=== PATIENT | female | born 1960 | race Caucasian/White ===

== ENCOUNTER 2019-02-02 14:33 | Emergency (ER) | payer OTHER, SELFPAY ==
[2019-02-02 14:46] VITALS: BP 140/89; PULSE 92; RESP 16; TEMP 36.8; O2SAT 98
--- NOTE | 2019-02-02 15:06 | ED.GENADUL_ITS ---
Discharge Plan Disposition Patient Disposition: HOME Condition: Good Discharge Details Chief Complaint: Nk/Back Pain Clinical Impression: Low back pain Primary Care Provider: Florentino Taylor ED Provider: Syed Wadsworth Home Meds and New Rx's Prescriptions: New cyclobenzaprine 10 mg tablet 10 mg PO TID Qty: 14 RF: 0 acetaminophen [Mapap Extra Strength] 500 MG tablet 1,000 mg PO Q6H 5 Days Qty: 60 RF: 0 prednisone 50 MG tablet 50 mg PO DAILY Qty: 5 RF: 0 lidocaine [Lidoderm] 1 PATCH patch 1 patch Topical Q24H Qty: 4 RF: 0 Discharge Instructions Instructions: Low Back Strain (ED) Additional Instructions: Please take the medication as directed. Do not take the Flexeril while you are working, driving, operating heavy machinery, or using firearms or swimming or taking baths. If you notice any worsening of your symptoms, or any new symptoms such as vomiting, diarrhea, fever, chills, shortness of breath, chest pain, numbness, weakness, bowel or bladder incontinence, numbness and tingling in your groin, or fainting , please return immediately to the emergency department for reevaluation. Please follow up with your primary care provider as soon as possible for reassessment and reevaluation. As always, it was a pleasure participating in your medical care today. Referrals: Florentino Taylor [Primary Care Provider] - Medical Decision Making This is a very pleasant 58-year-old female with no significant past medical history who presents for back pain. It occurred 1 week ago when she was lifting a heavy box and then got jolted and scared. Pain is gradually been wo rsening over the past week, has been improved with Aleve and a heating pad, however pain was slightly worse today and not relieved by the medication and heating pad. She denies any concerning red flags of saddle anesthesia, bowel or bladder incontinence, numbness tingling or weakness. Signs and symptoms are clinically consistent with mild low back strain. At this time there is no significant evidence of severe neurovascular compromise, cord compression, and no red flags of fever chills or risk factors for abscess, additionally her current signs and symptoms are clinically inconsistent with these acute pathologies. Post void residual demonstrates no evidence of urinary retention. She has 40 a cc in her bladder. No current clinical indication for emergent imaging. With a normal neurologic exam, I feel that the patient be safely discharged home with close follow-up with her PCP. Will apply Lidoderm patch, start steroids, continue NSAIDs and add Tylenol, and recommend close follow-up. We discussed concerning red flags which to return. I have extensively reviewed the treatment plan and discharge instructions with the patient. I have addressed all patient concerns at this time. The patient was made aware of what symptoms to monitor for that would warrant a return to the emergency department. Discussed the plan with the patient, they demonstrate verbal understanding and agreement with our assessment and plan at this time. HPI General Date/Time Provider Initiated Documentation: 02/02/19 14:36 . 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 The patient states that 1 week ago she was lifting a heavy box of dog food for a package delivery when someone came out and caused her to drop back quickly, she felt some mild soreness in her back, since then the soreness is gradually increased. She has been taking Aleve at home which is notably improving her symptoms until today. Patient states that the pain has been located in the lower back and sacral region, however today it is radiating slightly down the buttock left. She describes it as an achy-like sensation, worse with moving, and sitting upright or bending over. Improved by the Aleve but nothing else. She has been using a heating pad which is also improved her symptoms. She denies any associated numbness tingling or weakness of her lower extremities. She denies any bowel or bladder incontinence, she denies any urinary retention. She denies any saddle anesthesia. She denies any nausea, vomiting, diarrhea, abdominal pain, chest pain, shortness of breath or rash. She has no other complaints. She denies any IV or illicit drug use, surgeries, pertinent family history Related Data Home Medications Medication Instructions Recorded Confirmed acetaminophen [Mapap Extra 1,000 mg PO Q6H 5 Days #60 tab 02/02/19 Strength] cyclobenzaprine 10 mg PO TID #14 tab 02/02/19 lidocaine [Lidoderm] 1 patch TOPICAL Q24H #4 patch 02/02/19 prednisone 50 mg PO DAILY #5 tab 02/02/19 Previous Rx's Medication Instructions Recorded acetaminophen [Mapap Extra 1,000 mg PO Q6H 5 Days #60 tab 02/02/19 Strength] cyclobenzaprine 10 mg PO TID #14 tab 02/02/19 lidocaine [Lidoderm] 1 patch TOPICAL Q24H #4 patch 02/02/19 prednisone 50 mg PO DAILY #5 tab 02/02/19 General Stated Complaint: Nk/Back Pain MELISSA: 4 Review of Systems Review of Systems All systems reviewed & are unremarkable except as noted in HPI and below Exam Narrative Exam Narrative: 1.Const: Well-nourished, Well-developed, appearing stated age 2.Eyes: PERRL, no conjunctival injection, and symmetrical lids. 3.ENT: Atraumatic external nose and ears. Moist MM. Neck: Symmetric, trachea midline, No thyromegaly. 4.CVS: +S1/S2, No murmurs or gallops. Peripheral pulses 2+ and equal in all extremities. Brisk capillary refill in all extremities. 5.RESP: Unlabored respiratory effort. Clear to auscultation bilaterally. No wheezes rales or rhonchi 6.GI: Soft, Nontender/Nondistended, No hepatosplenomegaly. No guarding or r ebound. 7.MSK: Normocephalic/Atraumatic, Extremities w/o deformity or ttp. Mild tenderness on palpation over the left buttock. No evidence of pelvic instability. No cyanosis or clubbing, Normal movement of all extremities no midline tenderness to palpation over the CTLS spine. Normal ROM in flexion, extension, side bend, and rotation. Patient has +5 out of 5 strength in the lower extremities in dorsiflexion and plantarflexion, knee flexion and extension, hip flexion and extension. There is +2 over 2 dorsalis pedis pulses bilaterally. There is normal sensation to the skin with light touch at the foot, knee, and hip. Normal saddle sensation. Good sensation over the deep sural nerve area bilaterally. Rectal exam demonstrates notable rectal tone, as well as excellent perirectal sensation. Reflexes are +2 over 4 in the patellar reflex bilaterally. +5 out of 5 strength in the medial, ulnar, radial nerve distribution bilaterally in the hands as well as intact light touch sensation to these dermatomes on the hands 8.Skin: Warm, Dry. No rashes or lesions. 9.Neuro: shake splitter II-XII grossly intact. Sensation grossly intact, no focal neurologic deficits. 10.Psych: (AAO) x3. Appropriate mood and affect Course Vital Signs Temperature 36.8 C 02/02/19 14:46 Pulse 92 H 02/02/19 14:46 Respiratory Rate 16 02/02/19 14:46 Blood Pressure 140/89 02/02/19 14:46 Pulse Oximetry 98 02/02/19 14:46 Temperature 36.8 C 02/02/19 14:46 Temperature Source Temporal Artery Scan 02/02/19 14:46 Pulse 92 H 02/02/19 14:46 Respiratory Rate 16 02/02/19 14:46 Blood Pressure 140/89 02/02/19 14:46 Pulse Oximetry 98 02/02/19 14:46 Oxygen Delivery Method Room Air 02/02/19 14:46 Oxygen Flow Rate 0 02/02/19 14:46
--- NOTE | 2019-02-02 15:20 | NUR.NOTE ---
Med list not complete; patient is unable to identify names and doses of her medicationsNursing Note:
[2019-02-02] MEDS: Lidocaine 5% Patch 1 PATCH TP (15:21)
== END 2019-02-02 15:31 | disposition home or self-care (01) ==
PROVIDERS: Emergency Provider Student in an Organized Health Care Education/Training Program; PCP Specialist/Technologist Athletic Trainer
DX: M54.5 Low back pain (principal)
CPT/HCPCS: 99283

== ENCOUNTER 2019-02-05 06:50 | Emergency (ER) | payer OTHER, BC, SELFPAY ==
[2019-02-05] VITALS (10 sets, daily range): BP systolic 119–154; BP diastolic 61–81; PULSE 64–90; RESP 18; TEMP 36.7; O2SAT 90–100
--- NOTE | 2019-02-05 08:12 | W.ED.GENAD ---
Discharge Plan Disposition Condition: Improving Discharge Details Chief Complaint: Nk/Back Pain Clinical Impression: Left sided sciatica Primary Care Provider: Florentino Taylor ED Provider: Juliano Gonzalez Home Meds and New Rx's Prescriptions: New hydrocodone-acetaminophen 5-325 mg tablet 1 tab PO Q6H PRN (Reason: pain) Qty: 6 RF: 0 prednisone 10 mg tablet 10 mg PO DAILY Qty: 30 RF: 0 Continued acetaminophen [Mapap Extra Strength] 500 MG tablet 1,000 mg PO Q6H 5 Days Qty: 60 RF: 0 prednisone 50 MG tablet 50 mg PO DAILY Qty: 5 RF: 0 lidocaine [Lidoderm] 1 PATCH patch 1 patch Topical Q24H Qty: 4 RF: 0 naproxen sodium [Aleve] 220 mg Capsule 440 mg PO BID-TID PRNRF: 0 Discontinued cyclobenzaprine 10 mg tablet 10 mg PO TID Qty: 14 RF: 0 Discharge Instructions Instructions: Sciatica (ED) Additional Instructions: Follow-up with physical therapy. Off work for 1 week. Continue ibuprofen/Motrin, with food for pain. Stop the Flexeril. Finish your current prescription of prednisone with 2 additional days and then taper as I have prescribed. Return if you develop motor weakness with walking, change to urine pattern, numbness of the lower extremity or any other concern Stand Alone Forms: Physical Therapy Referral, Work Release Medical Decision Making 58-year-old female who was startled while carrying a 50 pound package on January 25. Since that time she is at ongoing low back pain and spasm is been refractive to steroid, lidocaine patch, cyclobenzaprine that was prescribed 3 days ago at ED visit. No saddle anesthesia or motor weakness. She is afebrile and otherwise well up. Consistent with acute sciatica with paraspinous muscular spasm. No motor or sensory deficits. IV placed, screening labs and urinalysis obtained, patient given fluid bolus, parenteral steroids, analgesia. She improved and was able to rest. We will increase the length of steroid burst and add a taper, refer the patient to physical therapy, she will stop Flexeril, and I will add small number of narcotic for acute severe pain if needed. She understands return precautions to the ER Lab Data Lab results reviewed: Yes I reviewed the patient's lab results. Laboratory Results - last 24 hr 02/05/19 02/05/19 02/05/19 08:15 08:30 08:30 WBC 16.57 H RBC 5.01 Hgb 14.6 Hct 43.0 MCV 85.8 MCH 29.1 MCHC 34.0 RDW 13.9 Plt Count 348 MPV 9.9 Immature Gran % 1.3 Neutrophils % 73.3 Lymphocytes % 18.5 Monocytes % 5.3 Eosinophils % 1.4 Basophils % 0.2 Absolute Neutrophils 12.15 H Absolute Lymphocytes 3.07 Absolute Monocytes 0.88 H Absolute Eosinophils 0.23 Absolute Basophils 0.03 Sodium 138 Potassium 3.2 L Chloride 96 L Carbon Dioxide 32.8 H Anion Gap 9.2 BUN 14 Creatinine 1.07 H Estimated GFR/1.73 m2 52.49 Glucose 115 H Calcium 9.4 Magnesium 2.1 Total Bilirubin 0.3 AST 20 ALT 37 Alkaline Phosphatase 99 Total Protein 8.1 Albumin 4.3 Urine Color Yellow Urine Clarity Clear Urine pH 7.0 Ur Specific [place] 1.015 Urine Protein Negative Urine Ketones Negative Urine Blood Negative Urine Nitrite Negative Urine Bilirubin Negative Urine Urobilinogen 0.2 Ur Leukocyte Esterase Negative Urine Glucose Negative HPI General Mode of arrival: ambulatory. Date/Time Provider Initiated Documentation: 02/05/19 07:54. Limitations to Documentation: no limitations. Information obtained by: patient. History of Present Illness 58 year old F presents to the emergency department with the chief complaint of Back pain since January 25 while carrying 50 pound package, described as moderate, Quality is described as dull, and is localized to the back and left. Patient distal. Patient started experiencing this day(s) and it has been constant. Movement improves symptom(s), Rest worsens symptoms . Patient notes no other symptoms.. Patient did receive the following treatments prior to arrival, other (Lidocaine, Flexeril, steroid) Related Data Home Medications Medication Instructions Recorded Confirmed acetaminophen [Mapap Extra 1,000 mg PO Q6H 5 Days #60 tab 02/02/19 02/05/19 Strength] lidocaine [Lidoderm] 1 patch TOPICAL Q24H #4 patch 02/02/19 02/05/19 prednisone 50 mg PO DAILY #5 tab 02/02/19 02/05/19 hydrocodone-acetaminophen 1 tab PO Q6H PRN #6 tab 02/05/19 naproxen sodium [Aleve] 440 mg PO BID-TID PRN 02/05/19 02/05/19 prednisone 10 mg PO DAILY #30 tab 02/05/19 Previous Rx's Medication Instructions Recorded acetaminophen [Mapap Extra 1,000 mg PO Q6H 5 Days #60 tab 02/02/19 Strength] lidocaine [Lidoderm] 1 patch TOPICAL Q24H #4 patch 02/02/19 prednisone 50 mg PO DAILY #5 tab 02/02/19 hydrocodone-acetaminophen 1 tab PO Q6H PRN #6 tab 02/05/19 prednisone 10 mg PO DAILY #30 tab 02/05/19 Allergies Allergy/AdvReac Type Severity Reaction Status Date / Time No Known Allergies Allergy Unverified 02/05/19 06:59 General Stated Complaint: Nk/Back Pain MELISSA: 4 Review of Systems Review of Systems No saddle anesthesia, no change to urine, no change to gait. Denies motor weakness. No back pain 8 systems reviewed and otherwise negative [facility] Social History Smoking/Tobacco Use Status: Current every day Tobacco Type: cigarettes Tobacco: How many years used: 30 Alcohol Intake: current Alcohol Intake frequency: 0-2 drinks per day Substance use type: does not use Do you feel safe at home: Yes Do you feel safe in your relationship?: Yes Exam Narrative Exam Narrative: GEN: awake, alert, oriented 3. Pleasant, well groomed, interactive. HEAD: Normocephalic, atraumatic ENT: Mucous membranes moist, oropharynx unremarkable, External ear exam unremarkable EYES: PERRL, EOMI NECK: Full ROM, no HARPREET, no menigismus CHEST/RESP: Nontender, clear to auscultation bilateral, no wheeze/rhonchi/rales CARDIOVASCULAR: RRR, no murmur, rub marisa. 2+ Rad pulse bilateral Back: Left paraspinous muscular spasm from midthoracic down to SI. Left sciatic notch tender to palpation. No saddle anesthesia. Great toe proprioception intact. Motor 5 out of 5 bilaterally including plantar and dorsiflexion of the leg. Gait antalgic but with good heel strike. ABDOMEN: Soft, nontender, no mass. +Bowel sounds EXT: Full ROM, no edema, no rash Neuro: Grossly normal neurologic exam, conversant, interactive. Psych: Speech fluent, thoughts congruent, affect normal Course Vital Signs Temperature 36.7 C 02/05/19 06:55 Pulse 90 02/05/19 06:55 Respiratory Rate 18 02/05/19 06:55 Blood Pressure 154/81 H 02/05/19 06:55 Pulse Oximetry 99 02/05/19 06:55 Temperature 36.7 C 02/05/19 06:55 Temperature Source Temporal Artery Scan 02/05/19 06:55 Pulse 90 02/05/19 06:55 Respiratory Rate 18 02/05/19 06:55 Respiratory Effort Non-Labored 02/05/19 06:58 Blood Pressure 154/81 H 02/05/19 06:55 Pulse Oximetry 99 02/05/19 06:55 Oxygen Delivery Method Room Air 02/05/19 06:55 Oxygen Flow Rate 0 02/05/19 06:55 Pain Level 10 02/05/19 07:01
[2019-02-05 08:22] LABS: Bilirubin Negative (Negative); Blood Negative (Negative); Clarity Clear; Glucose Negative (Negative); Ketones Negative (Negative); Leukocyte Esterase Negative (Negative); Nitrite Negative (Negative); Specific Gravity 1.015 (1.005-1.025); Urobilinogen 0.2 EU/dL (Up TO 0.2)
[2019-02-05] MEDS: Normal Saline 1,000 ML 1000 ML IV (08:27)
[2019-02-05] MEDS: Dexamethasone 10 MG/ML VIAL IVP (08:28)
[2019-02-05] MEDS: Ketorolac 30 MG/ML VIAL IVP (08:28)
[2019-02-05] MEDS: HYDROmorphone 2 MG/ML VIAL 1 MG IVP (08:29)
[2019-02-05] MEDS: MAGNESIUM SULFATE 1 GM/100 ML BAG IVPB (08:33)
[2019-02-05 08:43] LABS: Abs Immature Grans 0.22 k/cumm (0.0-0.09); Absolute Basophil Count 0.03 k/cumm (0.0-0.2); Absolute Monocyte Count 0.88 k/cumm (0.11-0.7); Basophils % 0.2; Eosinophils % 1.4; HGB 14.6 g/dL (12.0-15.5); Immature Grans % 1.3; Lymphocytes % 18.5; Mean Corpuscular Hemoglobin 29.1 pg (27.0-33.0); Mean Corpuscular Volume 85.8 fL (80-95); Mean Platelet Volume 9.9 fL (8.0-11.0); Monocytes % 5.3; Neutrophils % 73.3; Platelet Count 348 x1000/uL (130-400); RBC 5.01 m/cumm (4.00-5.20); RBC Distribution Width 13.9 % (11.7-14.6); White Blood Cell Count 16.57 k/cumm (4.4-10.8)
[2019-02-05 08:52] LABS: Absolute Eosinophil Count 0.23 k/cumm (0.0-0.7); Absolute Lymphocyte Count 3.07 k/cumm (1.2-3.4); Absolute Neutrophil Count 12.15 k/cumm (1.2-6.7)
[2019-02-05] MEDS: diazePAM 10 MG/2 ML SYR 2.5 MG IVP (08:56)
[2019-02-05 09:02] LABS: ALT 37 U/L (12-78); AST 20 U/L (15-37); Albumin 4.3 g/dL (3.4-5.0); Alkaline Phosphatase 99 U/L (46-116); Anion Gap 9.2 mmol/L (3-11); BUN 14 mg/dL (7-18); Bilirubin, Total 0.3 mg/dL (0.2-1.0); CO2 32.8 mmol/L (21.0-32.0); CREATININE 1.07 mg/dL (0.55-1.02); Calcium 9.4 mg/dL (8.5-10.1); Chloride 96 mmol/L (98-107); Estimated GFR 52.49 (mL/min/1.73m2); Glucose 115 mg/dL (70-100); Magnesium 2.1 mg/dL (1.8-2.4); Potassium 3.2 mmol/L (3.5-5.1); Sodium 138 mmol/L (136-145); Total Protein 8.1 g/dL (6.4-8.2)
== END 2019-02-05 09:47 | disposition home or self-care (01) ==
PROVIDERS: Emergency Provider Emergency Medicine; PCP Specialist/Technologist Athletic Trainer
DX: M54.42 Lumbago with sciatica, left side (principal)
CPT/HCPCS: 36415; 80053; 96361; 96365; 96375; 99284; 81003; 83735; 85025; J1100; J1885; J3360; J3475

== ENCOUNTER 2019-02-10 00:41 | Outpatient (CLI) | payer OTHER, BC, SELFPAY ==
--- NOTE | 2019-02-10 10:12 | DI.RAD_ITS ---
SYMPTOMS/DIAGNOSIS: LOW BACK PAIN, M54.5 LUMBOSACRAL SPINE: Five views were obtained. There is narrowing of the intervertebral disc spaces at L 4 - 5 and L 5 - S 1. Otherwise the intervertebral disc spaces are well maintained. Moderate hypertrophic spurring of the vertebral endplates and facet joints noted in the lower lumbar region. No evidence of spondylolysis or spondylolisthesis. No fracture identified. CONCLUSION: Degenerative changes of the lower lumbar spine.
== END 2019-02-10 01:01 ==
PROVIDERS: PCP Specialist/Technologist Athletic Trainer; Visit Provider Specialist/Technologist Athletic Trainer
DX: M54.5 Low back pain (principal); M51.37 Other intervertebral disc degeneration, lumbosacral region
CPT/HCPCS: 72110

== ENCOUNTER 2019-02-21 00:25 | Outpatient (CLI) | payer OTHER, SELFPAY ==
--- NOTE | 2019-02-21 10:25 | DI.MRI_ITS ---
SYMPTOMS/DIAGNOSIS: LOW BACK PAIN, M54.5, SEVERE BACK PAIN AFTER LIFTING HEAVY BOX, RADICULAR SYMPTOMS DOWN LEFT LEG X 2 WEEKS, NOT IMPROVED MRI OF THE LUMBAR SPINE: Comparison is made with plain films dated January,. T1, T2 and STIR sagittal, T1 coronal and T1 and T2 axial sequences were performed. The T12-L1 and L1-2 discs are unremarkable. At L3-4, there is mild concentric disc bulging and small endplate osteophytes. There are mild facet degenerative changes, which combine with the disc bulging to produce mild central canal stenosis of the AP dimension of the canal. There is no significant neural foraminal narrowing. At L3-4, there is mild loss of disc height and moderate concentric disc bulging and small endplate osteophytes. There are mild facet degenerative changes. There is mild central canal stenosis and mild bilateral neural foraminal narrowing. At L4-5, there is narrowing of the disc greater on the right side with osteophytes more prominent on the right. There is also a focal disc protrusion, which is slightly eccentric toward the right. There are moderate facet joint degenerative changes, as well as ligamentous hypertrophy, which combine with the disc protrusion to cause moderate degree of central canal stenosis. There is mild right neural foraminal narrowing. At L5-S1, there is mild broad-based disc bulging. There is a superimposed disc protrusion,which is eccentric toward the left. There are facet degenerative changes combining with the disc protrusion to produce moderate central canal stenosis. There is left- sided nerve root impingement. There is no right neural foraminal narrowing. The conus medullaris appears intact. IMPRESSION: Right paracentral disc protrusion at L4-5. Left paracentral disc protrusion at L5-S1. Central canal stenosis is seen from L3-4 through L5-S1 secondary to a combination of degenerative changes and disc protrusions.
== END 2019-02-21 00:45 ==
PROVIDERS: PCP Specialist/Technologist Athletic Trainer; Visit Provider Specialist/Technologist Athletic Trainer
DX: M54.5 Low back pain (principal); M54.17 Radiculopathy, lumbosacral region; M51.17 Intervertebral disc disorders with radiculopathy, lumbosacral region; M48.061 Spinal stenosis, lumbar region without neurogenic claudication
CPT/HCPCS: 72148

== ENCOUNTER 2019-03-04 00:51 | Emergency (ER) | payer OTHER, SELFPAY ==
[2019-03-04 00:53] VITALS: BP 159/88; PULSE 94; RESP 20; TEMP 36.5; O2SAT 97
--- NOTE | 2019-03-04 01:06 | ED.GENADUL_ITS ---
Discharge Plan Disposition Patient Disposition: HOME Condition: Good Discharge Details Chief Complaint: Orthopedic Clinical Impression: Left sided sciatica Primary Care Provider: Florentino Taylor ED Provider: Rian Garvey Meds and New Rx's Prescriptions: No Action cyclobenzaprine 10 mg Tablet 10 mg PO TID PRNRF: 0 Discharge Instructions Instructions: Sciatica (ED) Additional Instructions: You may take 1 oxycodone when you return home tonight. You may take the second tomorrow if needed during the day. Contact primary care during the day for follow-up and further pain management. Return to ED if you develop any new neurologic changes such as decreased sensation, decreased strength, bladder or bowel dysfunction, new or worsening back pain. Referrals: Florentino Taylor [Primary Care Provider] - Medical Decision Making Patient with left sciatic pain which she has had previously. Complains of aching tingling in the leg but has normal sensation throughout. Has 5 out of 5 strength throughout. She does not actually have back pain. She has known disease from MRI done within the last couple of weeks. She has no bladder or bowel dysfunction. She has primary care as well as physical therapy. She simply unable to sleep tonight. She had try calling primary care during the day but was unable to reach him. She is hoping to speak to him later today. She drove herself here so unable to give her anything strong here. I have agreed to give her oxycodone #2 5 mg tablets to go home with. May take 1 when she is home to try to get some rest. Given a second 1 to use tomorrow if needed. Contact primary care for further pain management. Return to ED for any new neurologic symptoms. Medical Records Medical records reviewed: Yes I reviewed the patient's medical records. HPI General Mode of arrival: ambulatory . Date/Time Provider Initiated Documentation: 03/04/19 01:06 . Limitations to Documentation: no limitations . Information obtained by: patient and old records reviewed . HPI Narrative: Patient presents to ED with complaint of left sciatica pain. She has had back problems for a while. She injured herself a month ago and has not been able to go back to work since. She had an MRI at the end of January. She has central canal stenosis as well as protruding discs. On Thursday she had physical therapy. Since then she has had increasing left lower extremity pain from the buttock down. Left leg feels tingly although sensation is intact. She has no actual back pain. She has no weakness. She has no bladder or bowel dysfunction. She attempted to contact primary care during the day but he was not available. She has been unable to sleep tonight. She is taking Flexeril, Tylenol, Advil. Related Data Home Medications Medication Instructions Recorded Confirmed cyclobenzaprine 10 mg PO TID PRN 03/04/19 03/04/19 Allergies Allergy/AdvReac Type Severity Reaction Status Date / Time No Known Allergies Allergy Unverified 02/05/19 06:59 General Stated Complaint: Orthopedic MELISSA: 4 Review of Systems Review of Systems As documented in HPI otherwise negative as below. Const: no fever, chills, weakness Resp: smoker's cough; no SOB, pleuritic pain CV: no CP, diaphoresis, edema, syncope GI: no abdominal pain, nausea, vomiting, diarrhea Neuro: no headache, numbness, focal weakness, confusion PFSH Social History Smoking/Tobacco Use Status: Current every day Tobacco Type: cigarettes Tobacco: How many years used: 30 Alcohol Intake: current Alcohol Intake frequency: 0-2 drinks per day Substance use type: does not use Do you feel safe at home: Yes Do you feel safe in your relationship?: Yes Exam Narrative Exam Narrative: Vitals: Hypertensive likely due to discomfort. Saturations okay, mid 90's in smokier. Const: WDWN female in NAD sitting in chair. HEENT: NC/AT. Normal facial exam. Back: Normal ROM of back. Nontender. Neuro: A+O x 3. CN II-XII grossly in tact. Sensory in tact, no change in sensation in either leg. Strength is 5/5 BLE. Ext: No C/C/E. No deformity or tenderness. Tender left buttock/sciatic area. Course Vital Signs Temperature 97.7 F 03/04/19 00:53 Pulse 94 H 03/04/19 00:53 Respiratory Rate 20 03/04/19 00:53 Blood Pressure 159/88 H 03/04/19 00:53 Pulse Oximetry 97 03/04/19 00:53 Temperature 97.7 F 03/04/19 00:53 Temperature Source Tympanic 03/04/19 00:53 Pulse 94 H 03/04/19 00:53 Respiratory Rate 20 03/04/19 00:53 Respiratory Effort 03/04/19 00:53 Blood Pressure 159/88 H 03/04/19 00:53 Pulse Oximetry 97 03/04/19 00:53 Oxygen Delivery Method Room Air 03/04/19 00:53 Oxygen Flow Rate 0 03/04/19 00:53 Pain Level 10 03/04/19 00:53
[2019-03-04] MEDS: oxyCODONE 5 MG TAB PO (01:28)
[2019-03-04 01:36] VITALS: BP 159/88; PULSE 94; RESP 20; O2SAT 97
== END 2019-03-04 01:36 | disposition home or self-care (01) ==
LOC: ER 01:36
PROVIDERS: Emergency Provider Emergency Medicine; PCP Specialist/Technologist Athletic Trainer
DX: M54.32 Sciatica, left side (principal)
CPT/HCPCS: 99283

== ENCOUNTER 2019-04-22 16:22 | Outpatient (REF) | payer BC, SELFPAY ==
[2019-04-22 21:45] LABS: Anion Gap 11.2 mmol/L (3-11); BUN 10 mg/dL (7-18); CO2 30.8 mmol/L (21.0-32.0); CREATININE 0.95 mg/dL (0.55-1.02); Chloride 103 mmol/L (98-107); Glucose 142 mg/dL (70-100); Potassium 3.5 mmol/L (3.5-5.1); Sodium 145 mmol/L (136-145)
== END 2019-04-22 16:42 ==
LOC: NCHCN 16:22
PROVIDERS: PCP Specialist/Technologist Athletic Trainer; Visit Provider Nurse Practitioner Family
DX: Z01.818 Encounter for other preprocedural examination (principal)
CPT/HCPCS: 80048

== ENCOUNTER 2019-06-08 12:29 | Outpatient (CLI) | payer BC, SELFPAY ==
--- NOTE | 2019-06-08 13:51 | DI.US_ITS ---
SYMPTOMS/DIAGNOSIS: PAIN ACHILLES TENDON AREA, LUMBAR SURGERY 1 MONTH AGO, ? DVT RIGHT LOWER EXTREMITY ULTRASOUND: The femoral and popliteal veins and visualized calf veins are freely compressible. No thrombus is visible. There is no localized hematoma or madden's cyst. IMPRESSION: Negative right lower extremity ultrasound. No evidence of DVT.
== END 2019-06-08 12:49 ==
PROVIDERS: PCP Specialist/Technologist Athletic Trainer; Visit Provider Neurological Surgery
DX: M79.661 Pain in right lower leg (principal); M79.671 Pain in right foot; Z98.890 Other specified postprocedural states
CPT/HCPCS: 93971

== ENCOUNTER 2019-09-28 01:30 | Outpatient (CLI) | payer OTHER, SELFPAY ==
--- NOTE | 2019-09-28 14:48 | DI.MRI_ITS ---
EXAM: MR LUMBAR SPINE WO CLINICAL HISTORY: RT LUMBAR RADICULOPATHY M54.16, EVALUATE FOR POSSIBLE RT L4-5 STENOSIS/DISC HERNIA TION, S/P L5-S1 MSD 05/2019. TECHNIQUE: Multiplanar multisequence MRI was performed. COMPARISON: MR lumbar spine wo from 02/21/2019 FINDINGS: MR examination of the lumbosacral spine was performed according to the usual protocol. Current exami nation is compared with prior examination of February 21. There has apparently been an interval left laminectomy at L5-S1, please correlate with history. Findings of left-sided disc herniation at L5-S1 noted on the prior examination are much less prominent on the current examination, there is mild lef t-sided neural foraminal narrowing at L5-S1. At L4-5, there is been no gross interval change in appearance of the large central disc herniation. Slight right sided neural foraminal narrowing noted. No gross interval change from prior examination . Mild eccentric disc bulging most prominent to the left noted at L3-4 and L2-3, no change from prior e xamination. IMPRESSION: 1. Marked interval decrease in prominence of L5-S1 disc herniation since the previous examination, th e patient has apparently had a discectomy. If clinically appropriate, additional evaluation with cont rast enhanced MR may be considered for more precise evaluation of the appearance of the disc and pote ntial fibrous scar tissue at this level. 2. No gross interval change in appearance of predominantly central, slightly right eccentric disc her niation at L4-5 in comparison with the previous examination.
== END 2019-09-28 01:50 ==
PROVIDERS: PCP Specialist/Technologist Athletic Trainer; Visit Provider Neurological Surgery
DX: M54.16 Radiculopathy, lumbar region (principal); M51.17 Intervertebral disc disorders with radiculopathy, lumbosacral region
CPT/HCPCS: 72148

== ENCOUNTER 2020-02-03 13:44 | Emergency (ER) | payer BC, SELFPAY ==
--- NOTE | 2020-02-03 13:46 | W.ED.GENAD ---
Discharge Plan Disposition Patient Disposition: HOME Condition: Stable Discharge Details Chief Complaint: GenMedical Clinical Impression: Leg wound, right, Wound infection Primary Care Provider: Lesley Henriquez V ED Provider: Jennifer Canela Home Meds and New Rx's Prescriptions: New cephalexin [Keflex] 500 mg capsule 500 mg PO QID 7 Days Qty: 28 RF: 0 mupirocin 2 % ointment 1 applic TP BID Qty: 15 RF: 0 Continued amlodipine 10 mg tablet 10 mg PO DAILY RF: 0 multivitamin capsule 1 cap PO DAILY RF: 0 atorvastatin 40 mg tablet 40 mg PO DAILY RF: 0 losartan-hydrochlorothiazide 100-25 mg tablet 1 tab PO DAILY RF: 0 bupropion HCl 150 mg tablet extended release 24 hr 150 mg PO QAM RF: 0 aspirin 81 mg tablet,delayed release (DR/EC) 81 mg PO DAILY RF: 0 Discharge Instructions Instructions: Wound Infection (ED) Additional Instructions: Use the topical antibiotic ointment as directed. Take the oral antibiotics until finished. Keep wound clean and dry. Cover wound with bandage if risk of contamination. Otherwise you can keep the wound open to air if resting at home to allow edges to dry and heal. Follow-up with your primary care doctor on your scheduled appointment this month. Return to the emergency department if you develop any worsening or new concerning symptoms such as fever, increased pain, redness or swelling. Discharge Data Discharge Physician: Jennifer Canela Medical Decision Making 59yo F presents with acute on chronic R leg wound for the past few months, worse over the past few days. Denies fever. Pt appears nontoxic. There is an open wound on R posterior lower leg with a surrounding mild cellulitis. Wound is local. History and presentation not c/w dvt. Will cover with topical and oral antibiotics. A nonadherent dressing was placed. Wound precautions discussed. Pt was advised to f/u with scheduled appt with pcp this month and to return here if worse. Medical Records Medical records reviewed: Yes I reviewed the patient's medical records. HPI General Mode of arrival: ambulatory. Date/Time Provider Initiated Documentation: 02/03/20 13:46. Limitations to Documentation: no limitations. Information obtained by: patient. HPI Narrative: Pt is a 59yo F who presents to the ED w/ a c/o R leg wound for the past few months, getting progressively worse. Pt states the wound first started from wearing boots that rubbed against her leg. She states she had stopped wearing these boots and the wound improved and then she wore the boots again recently and the wound became worse. She denies fever. Pt has been covering the wound with triple antibiotic without relief. Related Data Home Medications Medication Instructions Recorded Confirmed amlodipine 10 mg tablet 10 mg PO DAILY 04/04/19 02/03/20 aspirin 81 mg tablet,delayed 81 mg PO DAILY 04/04/19 02/03/20 release atorvastatin 40 mg tablet 40 mg PO DAILY 04/04/19 02/03/20 bupropion HCl 150 mg 24 hr tablet, 150 mg PO QAM 04/04/19 02/03/20 extended release losartan 100 1 tab PO DAILY 04/04/19 02/03/20 mg-hydrochlorothiazide 25 mg tablet multivitamin 1 cap PO DAILY 04/04/19 02/03/20 cephalexin [Keflex] 500 mg PO QID 7 Days #28 cap 02/03/20 mupirocin 1 applic TP BID #15 gm 02/03/20 Previous Rx's Medication Instructions Recorded cephalexin [Keflex] 500 mg PO QID 7 Days #28 cap 02/03/20 mupirocin 1 applic TP BID #15 gm 02/03/20 Allergies Allergy/AdvReac Type Severity Reaction Status Date / Time No Known Allergies Allergy Unverified 02/03/20 13:56 General MELISSA: 4 Review of Systems All systems reviewed & are unremarkable except as noted in HPI and below Constitutional Constitutional: Reports as per HPI, Denies chills and Denies fever(s) Eyes Eyes: Denies blurry vision ENT Ears, Nose, Mouth, and Throat: Denies dizziness, Denies sore throat and Denies throat swelling Cardiovascular Cardiovascular: Denies chest pain and Denies dyspnea Respiratory Respiratory: Denies cough and Denies dyspnea Gastrointestinal Gastrointestinal: Denies abdominal pain, Denies diarrhea and Denies vomiting Genitourinary Genitourinary: Denies hematuria and Denies dysuria Musculoskeletal Musculoskeletal: Denies back pain and Denies numbness Integumentary/Breasts Skin/Breast: Reports lesions and Denies rash Neurologic Neurologic: Denies dizziness, Denies localized weakness and Denies numbness Allergic/Immunologic Allergic/Immunologic: Denies throat swelling [facility] Medical History (Updated 02/03/20 @ 14:14 by Jennifer Canela DO) Back pain with radiculopathy (Acute) Bilateral calf pain (Acute) COPD, mild (Acute) Depression (Chronic) Hemorrhoids (Acute) Hyperlipidemia (Acute) Hypertension (Chronic) Hypokalemia (Acute) Low back pain (Acute) Pap smear vag w ASC-US (Acute) Seasonal affective disorder (Acute) Situational anxiety (Acute) Tobacco use disorder (Acute) Social History Smoking/Tobacco Use Status: Current every day Tobacco Type: cigarettes Tobacco: How many years used: 30 Alcohol Intake: current Alcohol Intake frequency: 0-2 drinks per day Substance use type: does not use Do you feel safe at home: Yes Do you feel safe in your relationship?: Yes Exam Const General: cooperative, healthy appearing and no acute distress HENMT Head: normal to inspection Mouth: oral mucosae normal Eyes General: appearance normal, both eyes and all related structures Neck Neck: normal visual inspection Resp Effort & Inspection: normal respiratory effort and able to speak in complete sentences Cardio Rate: regular rate Skin General skin exam: no rashes or lesions noted Neuro General: patient alert, patient awake and patient oriented x3 Motor: muscle tone normal throughout Extrem Upper/lower leg/hip images: 1. 4cm x 5cm wound with an approximately 2x2cm open yellow crusted area in center and with a 2cm surrounding area of erythema and induration located on posterior lower leg. There is no fluctuance, drainage, bleeding or red streaking. Psych Appearance: grossly normal Affect: normal affect
[2020-02-03 13:50] VITALS: BP 161/91; PULSE 91; RESP 16; TEMP 36.8; O2SAT 97
[2020-02-03 14:01] VITALS: RESP 16
== END 2020-02-03 14:40 | disposition home or self-care (01) ==
PROVIDERS: Emergency Provider Physician Assistant; PCP Family Medicine
DX: L03.115 Cellulitis of right lower limb (principal); S81.801A Unspecified open wound, right lower leg, initial encounter; X58.XXXA Exposure to other specified factors, initial encounter; I10 Essential (primary) hypertension; J44.9 Chronic obstructive pulmonary disease, unspecified; F17.210 Nicotine dependence, cigarettes, uncomplicated
CPT/HCPCS: 99283

== ENCOUNTER 2020-04-08 09:25 | Emergency (ER) | payer BC, SELFPAY ==
[2020-04-08 09:31] VITALS: BP 167/85; PULSE 87; RESP 20; TEMP 36.7; O2SAT 97
--- NOTE | 2020-04-08 09:33 | W.ED.GENAD ---
Discharge Plan Disposition Patient Disposition: HOME Condition: Good Discharge Details Chief Complaint: RashLesion Clinical Impression: Chronic wound of extremity Primary Care Provider: eLsley Henriquez V ED Provider: Bel Giraldo Home Meds and New Rx's Prescriptions: Continued amlodipine 10 mg tablet 10 mg PO DAILY RF: 0 multivitamin capsule 1 cap PO DAILY RF: 0 atorvastatin 40 mg tablet 40 mg PO DAILY RF: 0 losartan-hydrochlorothiazide 100-25 mg tablet 1 tab PO DAILY RF: 0 bupropion HCl 150 mg tablet extended release 24 hr 150 mg PO QAM RF: 0 aspirin 81 mg tablet,delayed release (DR/EC) 81 mg PO DAILY RF: 0 Discharge Instructions Instructions: Chronic Wound Care (ED) Additional Instructions: Keep wound clean and covered. Every 48 hours, please remove the dressing, apply the ointment provided after washing the area and reapply new dressing. Please call general surgery tomorrow to schedule appointment for chronic wound care. If develop fever/chills, increased pain, purulent discharge or the new/worsening symptom please seek care urgently once again. Referrals: Lesley Henriquez MD [Primary Care Provider] - Joslyn Tay MD [ [facility] STAFF PHYSICIAN] - Medical Decision Making Patient is a pleasant 5-year-old female presenting today with chief complaint of chronic ulcerative wound on the posterior aspect of the right lower extremity. She is presenting today due to pruritus and tingling around the wound. She states that she is having difficulty sleeping secondary to the sensations. She reports the wound initially began back in December when she sustained a blister from wearing a boot placing pressure on this area. 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 She is been seen twice, once in the emergency department once by her primary care, both times she was treated with antibiotics. When she was seen here last, there was concern for cellulitic component. She denies any fevers or chills. Does endorse some discomfort primarily is endorsing itching at this time. States that she is been giving this to air she was recommended to try and dry this out. On exam, patient has a chronic 5 cm wound. No purulent discharge. No swelling, fluctuance. She does have small around the area of erythema and excoriation this is not warm or tender. This appears more consistent with chronic wound without evidence of acute infection. Spoke with wound care nurse who advised moistening the area. She advised Duoderm gel with mepelex cover. Patient was he was applied for the patient. She was given enough to continue care of the wound this week. Advised to change his dressing every 48 hours and shower when she does take it off to wash the area. She will call general surgery tomorrow to schedule follow-up appointment for clinical management. She is given return precautions, in particular symptoms of infection. All of her questions and concerns were addressed and she is in agreement this plan. HPI General Mode of arrival: ambulatory. Date/Time Provider Initiated Documentation: 04/08/20 09:33. Limitations to Documentation: no limitations. Information obtained by: patient and RN notes reviewed. History of Present Illness 59 year old F presents to the emergency department with the chief complaint of right posterior calf chronic wound with itching, described as moderate, with intensity rated at 5. Quality is described as constant and other (itching), and is localized to the right and lower extremity. Patient reports no radiation. Patient started experiencing this month(s) (4) and it has been constant. No relieving factors improve symptom(s), No exacerbating factors reported . Patient notes no other symptoms.. Patient did receive the following treatments prior to arrival, other (2 courses of antibiotics) Related Data Home Medications Medication Instructions Recorded Confirmed amlodipine 10 mg tablet 10 mg PO DAILY 04/04/19 04/08/20 aspirin 81 mg tablet,delayed 81 mg PO DAILY 04/04/19 04/08/20 release atorvastatin 40 mg tablet 40 mg PO DAILY 04/04/19 04/08/20 bupropion HCl 150 mg 24 hr tablet, 150 mg PO QAM 04/04/19 04/08/20 extended release losartan 100 1 tab PO DAILY 04/04/19 04/08/20 mg-hydrochlorothiazide 25 mg tablet multivitamin 1 cap PO DAILY 04/04/19 04/08/20 Allergies Allergy/AdvReac Type Severity Reaction Status Date / Time No Known Allergies Allergy Unverified 04/08/20 09:35 General MELISSA: 3 Review of Systems Constitutional Constitutional: Reports as per HPI, Denies chills, Denies fever(s), Denies headache(s) and Denies weakness ENT Ears, Nose, Mouth, and Throat: Denies headache(s) Cardiovascular Cardiovascular: Reports as per HPI Respiratory Respiratory: Reports as per HPI and Denies cough Musculoskeletal Musculoskeletal: Reports as per HPI and Denies tingling Integumentary/Breasts Skin/Breast: Reports as per HPI and Reports wounds Neurologic Neurologic: Reports as per HPI, Denies headache(s), Denies tingling, Denies paresthesias and Denies weakness [facility] Medical History Back pain with radiculopathy (Acute) Bilateral calf pain (Acute) COPD, mild (Acute) Depression (Chronic) Hemorrhoids (Acute) Hyperlipidemia (Acute) Hypertension (Chronic) Hypokalemia (Acute) Low back pain (Acute) Pap smear vag w ASC-US (Acute) Seasonal affective disorder (Acute) Situational anxiety (Acute) Tobacco use disorder (Acute) Social History Smoking/Tobacco Use Status: Current every day Tobacco Type: cigarettes Tobacco: How many years used: 30 Alcohol Intake: current Alcohol Intake frequency: 0-2 drinks per day Drug use: Never Substance use type: does not use Do you feel safe at home: Yes Do you feel safe in your relationship?: Yes Exam Const General: cooperative, healthy appearing, comfortable, no acute distress, well developed and well groomed Nutritional Appearance: average body habitus and well nourished Orientation: alert and awake Resp Effort & Inspection: normal respiratory effort, able to speak in complete sentences and no respiratory distress Cardio Rate: regular rate Rhythm: regular rhythm Skin Wounds: wounds noted (as drawn below) Full body images: 1. Patient has a 5 cm in diameter ulcerated lesion that is dried and scabbed over. She has a 1 cm in circumference surrounding erythematous and excoriated border. Is not hot, no fluctuance, no swelling. No discharge noted. 2+ distal pulses. Good range of motion. Does not appear to have tenderness or muscle involvement. Neuro General: patient alert and patient awake Cognition: normal cognition Speech: speech normal Gait: normal gait Motor: muscle tone normal throughout Sensory Exam: no sensory deficits noted Extrem Right lower extremity: abnormal to inspection (As above) Psych Appearance: grossly normal and well kempt Mental Status: mental status grossly normal Speech and Movement: speech and movement normal
== END 2020-04-08 10:13 | disposition home or self-care (01) ==
LOC: ER 10:11
PROVIDERS: Emergency Provider Physician Assistant; PCP Family Medicine
DX: L97.218 Non-pressure chronic ulcer of right calf with other specified severity (principal); R20.2 Paresthesia of skin; L29.8 Other pruritus; J44.9 Chronic obstructive pulmonary disease, unspecified; F17.210 Nicotine dependence, cigarettes, uncomplicated
CPT/HCPCS: 99283

== ENCOUNTER 2020-07-03 14:30 | Emergency (ER) | payer BC, SELFPAY ==
[2020-07-03 14:37] VITALS: BP 178/81; PULSE 98; RESP 16; TEMP 36.4; O2SAT 98
--- NOTE | 2020-07-03 15:07 | W.ED.GENAD ---
Discharge Plan Disposition Patient Disposition: HOME Condition: Stable Discharge Details Chief Complaint: Cellulitis Clinical Impression: Open leg wound, Cellulitis of leg, right Primary Care Provider: Lesley Henriquez V ED Provider: Kaila Hand Home Meds and New Rx's Prescriptions: New cephalexin 500 mg capsule 500 mg PO BID 10 Days Qty: 20 RF: 0 No Action amlodipine 10 mg tablet 10 mg PO DAILY RF: 0 multivitamin capsule 1 cap PO DAILY RF: 0 atorvastatin 40 mg tablet 40 mg PO DAILY RF: 0 losartan-hydrochlorothiazide 100-25 mg tablet 1 tab PO DAILY RF: 0 bupropion HCl 150 mg tablet extended release 24 hr 150 mg PO QAM RF: 0 aspirin 81 mg tablet,delayed release (DR/EC) 81 mg PO DAILY RF: 0 hydrochlorothiazide 25 mg tablet 25 mg PO DAILY RF: 0 diphenhydramine HCl [Benadryl] 25 mg capsule 25 mg PO QHS RF: 0 Discharge Instructions Instructions: Cellulitis (ED) Additional Instructions: Home care of wound per instructions by wound care nurse. Keep Mepilex dressing in place until seen in 3 days. Be seen in the next 3 days either here in the ER, by primary care provider, or general surgery. Take antibiotics as directed. Do not scratch or touch wound. Keep covered while at work. I strongly suggest clipping your fingernails if you are unable to not scratch wound. Return to the ED sooner for any fever, spreading redness or any concerns. There is a wound clinic at [facility] as noted below. You may also try to call them for follow-up appointment. [facility] Address: [address] [place] [address] Hours: Open 24 hours Emergency room: Open 24 hours ? More hours I would suggest a dry dressing. Do not place any more antibiotic cream on the wound. Referrals: Lesley Henriquez MD [Primary Care Provider] - Discharge Data Discharge Date/Time-TO BE ENTERED AT DEPARTURE: 07/03/20 16:40 Medical Decision Making 60-year-old female presents to the ER complaining of worsening redness surrounding a chronic wound to the back of her right lower extremity. Patient states that she has had a wound which began as a blister since December. She states that the last couple days she noticed increased pruritic erythema surrounding central wound. There is a large 3 x 4 cm area of excoriation centrally with surrounding erythema. Patient denies any fever chills, myalgias or any other complaints at this time. She states that she has been cleaning wound with running soap and water, leaving it uncovered and applying [id number] antibiotic ointment at home. She has not been on antibiotics in the last few months. She was seen in the wound clinic /general surgery until May 10 when she missed an appointment and has not gone back. She is a every day smoker. Has a past medical history of hyperlipidemia, hypertension, anxiety. 1514: Wound care nurseArian called and is at bedside for patient evaluation. Erythema was marked measured by nurse staff industrial. He is performing wound care. 1540: Wound care nurse is placing Ancif (Bleach based wound treatment gel) to wound he recommends cover with Mepilex dressing and follow-up in 3 days. Will instruct patient to follow-up with PCP, general surgery, or return to the ED in 3 days time. Patient placed on cephalexin 500 mg twice a day x10 days and instructed on home care, dressing management and wound care. Instructed patient to be seen in the next 3 days. Instructed to either return to the ED, be seen by PCP, or general surgery. Also given closest wound care clinic with information in the wound care clinic in [facility]. Patient placed on a care management follow-up list for an appointment in the next 3 days. At this time I am concerned for patient noncompliance with instructions for wound care at home and being able to refrain from itching. Did discuss clipping her long fingernails if she is unable to stop touching wound. Discussed risk of area becoming worse and infection spreading. HPI General Mode of arrival: ambulatory. Date/Time Provider Initiated Documentation: 07/03/20 14:51. Limitations to Documentation: no limitations. Information obtained by: patient. HPI Narrative: 60-year-old female presents to the ER complaining of worsening redness surrounding a chronic wound to the back of her right lower extremity. Patient states that she has had a wound which began as a blister since December. She states that the last couple days she noticed increased pruritic erythema surrounding central wound. There is a large 3 x 4 cm area of excoriation centrally with surrounding erythema. Patient denies any fever chills, myalgias or any other complaints at this time. She states that she has been cleaning wound with running soap and water, leaving it uncovered and applying [id number] antibiotic ointment at home. She has not been on antibiotics in the last few months. She was seen in the wound clinic up until November when she missed an appointment and has not gone back. She is never a smoker. Has a past medical history of hyperlipidemia, hypertension, anxiety. Related Data Home Medications Medication Instructions Recorded Confirmed amlodipine 10 mg tablet 10 mg PO DAILY 04/04/19 07/03/20 aspirin 81 mg tablet,delayed 81 mg PO DAILY 04/04/19 05/01/20 release atorvastatin 40 mg tablet 40 mg PO DAILY 04/04/19 07/03/20 bupropion HCl 150 mg 24 hr tablet, 150 mg PO QAM 04/04/19 07/03/20 extended release losartan 100 1 tab PO DAILY 04/04/19 07/03/20 mg-hydrochlorothiazide 25 mg tablet multivitamin 1 cap PO DAILY 04/04/19 07/03/20 diphenhydramine HCl 25 mg capsule 25 mg PO QHS 04/17/20 07/03/20 hydrochlorothiazide 25 mg tablet 25 mg PO DAILY 04/17/20 07/03/20 cephalexin 500 mg PO BID 10 Days #20 cap 07/03/20 Previous Rx's Medication Instructions Recorded cephalexin 500 mg PO BID 10 Days #20 cap 07/03/20 Allergies Allergy/AdvReac Type Severity Reaction Status Date / Time No Known Allergies Allergy Unverified 07/03/20 14:44 General Stated Complaint: RashLesion MELISSA: 4 Review of Systems Narrative: Constitutional: Negative for weight loss, alert and oriented, well groomed, normal body habitus, appears comfortable. HEENT: Denies trauma, headaches, blurry vision, nasal discharge, sore throat, trouble swallowing. Chest: Denies chest pain, palpitations, irregular rhythm, hypertension. Respiratory: Denies Shortness of breath, cough, hemoptysis. GI: Denies abdominal pain, nausea, vomiting, diarrhea, constipation. : Denies dysuria, hematuria, flank pain, rectal bleeding. Neuro: Denies dizziness, blurry vision, weakness, syncope, headache or facial numbness. Hematologic: Denies easy bruising, intolerance to heat or cold, hair loss. [facility] Medical History Back pain with radiculopathy (Acute) Bilateral calf pain (Acute) COPD, mild (Acute) Depression (Chronic) Hemorrhoids (Acute) Hyperlipidemia (Acute) Hypertension (Chronic) Hypokalemia (Acute) Low back pain (Acute) Pap smear vag w ASC-US (Acute) Seasonal affective disorder (Acute) Situational anxiety (Acute) Tobacco use disorder (Acute) Social History Smoking/Tobacco Use Status: Current every day Tobacco Type: cigarettes Tobacco: How many years used: 30 Alcohol Intake: current Alcohol Intake frequency: 0-2 drinks per day Drug use: Never Substance use type: does not use Current gender identity: female Do you feel safe at home: Yes Do you feel safe in your relationship?: Yes Exam Narrative Exam Narrative: Constitutional: Alert and oriented x3. Appears stated age. Normal body habitus. Head: Normocephalic, no trauma. Eyes: Pupils PERRLA, Red reflex noted, EOM's intact. Eyelids symmetrical without lesions, discharge, or swelling. ENT: Bilateral TM's WNL, External ear normal to inspection, no mastoid TTP, swelling, or erythema, Nasal turbinates WNL, no nasal discharge. Normal dentition, Posterior pharynx WNL, no exudate. Chest: RRR, Normal S1, S2, distal pulses intact. Resp: Lungs clear to auscultation bilaterally, no wheezes, rales, or rhonchi. Musculoskeletal: Normal gait, 5/5 strength to all four extremities. Skin: Capillary refill less than 2 sec. Neurologic: Cranial nerves II-XII intact. Alert and oriented x 3. DTR's intact. Hematologic/Lymphatic: No ecchymosis, no lymphadenopathy. Skin Wounds: wounds noted ulceration right posterior lower leg size (Approximately 3 cm x 4 cm), bed yellow, beefy red and with slough, drainage yellow, margins indistinct and with surrounding erythema, open and with surrounding erythema (Sandpaper like rash which is pruritic per patient ) Full body images: 1. Erythemic, macular, dry pruritic rash 2. Central area of ulceration noted which is contaminated, yellow, beefy red, sloughing bed. Measuring approximately 3 cm x 4 cm Course Vital Signs Vital signs: Vital Signs Temperature 36.4 C L 07/03/20 14:37 Pulse 98 H 07/03/20 14:37 Respiratory Rate 16 07/03/20 14:37 Blood Pressure 178/81 H 07/03/20 14:37 Pulse Oximetry 98 07/03/20 14:37 Temperature 36.4 C L 07/03/20 14:37 Temperature Source Tympanic 07/03/20 14:37 Pulse 98 H 07/03/20 14:37 Respiratory Rate 16 07/03/20 14:37 Respiratory Effort Non-Labored 07/03/20 14:43 Blood Pressure 178/81 H 07/03/20 14:37 Blood Pressure Position Sitting 07/03/20 14:37 Pulse Oximetry 98 07/03/20 14:37 Oxygen Delivery Method Room Air 07/03/20 14:37 Oxygen Flow Rate 0 07/03/20 14:37 Pain Level 0 07/03/20 14:37
[2020-07-03] MEDS: Lidocaine/Epinephri/Tetracaine Topical Gel 3 ML TP (15:38)
[2020-07-03] MEDS: Cephalexin 500 MG CAP PO (15:40)
--- NOTE | 2020-07-03 16:09 | WOUNDCARE ---
Wound Care Report I was asked by Kaila Garcia to see the patient in the ed. Patient is a 60 yof, hx of the wound goes back to december of this year according to the patient, when the boots she was wearing raised a blister on the posterior section of her right leg , which evolved into statis ulcer. Patient had seen Dr. Tay for the wound, but stopped seeing Dr. Centeno after May 01, patient was not able to state exactly why she stopped seeing her. She stated she applied a topical cream to the wound daily and left it open to the air. She presented the ED today, because the wound had developed more pain and had become erythemous about [address] around the wound. Patient was sitting on the cot in the ed room when I met her. Attempt was made to clean the wound. However patient c/o extreme pain brushed this nurses hand away and retracted the leg, and rubbed her hand over the wound. Patient was strongly encouraged to keep her hands away from the wound and the rationale of keeping germs out of the wound was explained to her. Topical lidocaine was applied to the wound, and attempt to further debride wound was attempted, moderate amount of slough and purulent material was cleaned from the wound , leaving a wound bed that was 25% slough, 75% pink non granulating tissue. In CM the wound measured 3.3 x 2.2 x0.6 . Patient continued to rub and pick at the wound, and was continually encouraged to leave the wound alone. I spoke to Kaila about the cellulitis, she was going to treat it with po abx . She had asked me to come down for a recommendation. for dressing, I recommended the following to her . Cleanse with NS. Apply Anasept Gel to the base. Cover with a mepilex. Follow up with her PCP within 72 hours. Patient refused to have the mepilex applied to her skin, stating i would hurt too much, that her skin was on fire. Spoke to Kaila and she ammended the dressing order to anasept Gel in the base, cover with telfa then gauze 4x4 and secure with hamilton. She was going to recommend to follow up with PCP within 72 hours. One last time patient was asked to keep from rubbing the open areas of the wound
--- NOTE | 2020-07-03 16:11 | NUR.NOTE ---
Nursing Note: Referral to PCP for follow up this Thursday faxed. Vidya Morris
== END 2020-07-03 16:40 | disposition home or self-care (01) ==
PROVIDERS: Emergency Provider Registered Nurse Emergency; PCP Family Medicine
DX: L97.212 Non-pressure chronic ulcer of right calf with fat layer exposed (principal); L03.115 Cellulitis of right lower limb; J44.9 Chronic obstructive pulmonary disease, unspecified; F17.210 Nicotine dependence, cigarettes, uncomplicated; I10 Essential (primary) hypertension
CPT/HCPCS: 99283

== ENCOUNTER 2020-07-20 16:25 | Outpatient (REF) | payer BC, SELFPAY | END 2020-07-20 16:45 | LOC: NCHCN 16:25 | PROVIDERS: PCP Family Medicine; Visit Provider Family Medicine | DX: L03.115 Cellulitis of right lower limb (principal); L97.212 Non-pressure chronic ulcer of right calf with fat layer exposed | CPT/HCPCS: 87070; 87205 ==

== ENCOUNTER 2021-03-09 10:36 | Emergency (ER) | payer BC, SELFPAY ==
[2021-03-09 10:39] VITALS: BP 196/90; PULSE 98; RESP 18; TEMP 36.5; O2SAT 98
--- NOTE | 2021-03-09 10:46 | W.ED.GENAD ---
Discharge Plan Disposition Patient Disposition: HOME Condition: Good Discharge Details Clinical Impression: Cat bite, Cat bite of left hand, Cat bite of right hand Primary Care Provider: Lesley Henriquez V ED Provider: Syed Wadsworth Home Meds and New Rx's Prescriptions: New amoxicillin-pot clavulanate [Augmentin] 875-125 mg tablet 1 tab PO BID Qty: 18 RF: 0 Continued amlodipine 10 mg tablet 10 mg PO DAILY RF: 0 multivitamin capsule 1 cap PO DAILY RF: 0 atorvastatin 40 mg tablet 40 mg PO DAILY RF: 0 losartan-hydrochlorothiazide 100-25 mg tablet 1 tab PO DAILY RF: 0 bupropion HCl 150 mg tablet extended release 24 hr 150 mg PO QAM RF: 0 aspirin 81 mg tablet,delayed release (DR/EC) 81 mg PO DAILY RF: 0 hydrochlorothiazide 25 mg tablet 25 mg PO DAILY RF: 0 diphenhydramine HCl [Benadryl] 25 mg capsule 25 mg PO QHS RF: 0 potassium chloride 10 mEq capsule, extended release 10 meq PO DAILY RF: 0 losartan 100 mg tablet 100 mg PO DAILY RF: 0 Discharge Instructions Instructions: Amoxicillin/Clavulanate Potassium (By mouth), Animal Bite (ED) Additional Instructions: At this time you demonstrate evidence of mild cellulitis/infection in your hands for your bit. Thankfully this has not affected the tendons or ligaments at this time. Please take the antibiotic Augmentin as directed. Your prescription for the full duration was sent to your local pharmacy. As we discussed together if you notice any redness or swelling traveling up your hand, up your arm, or develop significant swelling in your fingers with notable pain with movement of your finger, please return immediately for reassessment. If you notice any worsening of your symptoms, or any new symptoms such as vomiting, diarrhea, fever, chills, shortness of breath, chest pain, numbness, weakness, or fainting , please return immediately to the emergency department for reevaluation. Please follow up with your primary care provider as soon as possible for reassessment and reevaluation. As always, it was a pleasure participating in your medical care today. Referrals: Lesley Henriquez MD [Primary Care Provider] - Medical Decision Making 60-year-old female with a past medical history of high cholesterol, hypertension, presents today for evaluation of cat bite to her left and right hand. She is left-hand dominant. She states that yesterday her cat bit her when she tried to break up a fight between a cat and a dog. It bit her on her left and right hands. She has been washing the area and cleaning it regularly developed mild swelling and tenderness over the last 12 hours. She denies any fever or chills. No red streaking traveling up her forearms. No pain with flexion or extension of any of her fingers. No other concerning lesions anywhere else. Tetanus is up-to-date per patient. Immunizations are up-to-date per the patient. No other complaints at this time. No other modifying factors. Exam demonstrates mild swelling, minimal redness on the right hand, mild swelling, minimal drainage on the distal dorsal tip of the middle finger on the left hand. No traveling redness, no pain with flexion or extension of the digit, no evidence of flexor or extensor tenosynovitis, no evidence of sepsis or systemic infection clinically. No fever or chills. No evidence of abscess needing drainage. Patient will be given Augmentin here for her first dose now, and a prescription for home use. Unfortunately upon review of the patient's records she actually has not had a tetanus for the last 11 years. Will update that here. Cats rabies vaccine is up-to-date. Patient will be discharged. Discussed concerning red flags which to return. I have extensively reviewed the treatment plan and discharge instructions with the patient. I have addressed all patient concerns at this time. The patient was made aware of what symptoms to monitor for that would warrant a return to the emergency department. Discussed the plan with the patient, they demonstrate verbal understanding and agreement with our assessment and plan at this time. The documentation in this chart was dictated using [employer] dictation software. Please excuse any dictation errors. HPI General Date/Time Provider Initiated Documentation: 03/09/21 10:38. HPI Narrative: 60-year-old female with a past medical history of high cholesterol, hypertension, presents today for evaluation of cat bite to her left and right hand. She is left-hand dominant. She states that yesterday her cat bit her when she tried to break up a fight between a cat and a dog. It bit her on her left and right hands. She has been washing the area and cleaning it regularly developed mild swelling and tenderness over the last 12 hours. She denies any fever or chills. No red streaking traveling up her forearms. No pain with flexion or extension of any of her fingers. No other concerning lesions anywhere else. Tetanus is up-to-date per patient. Immunizations are up-to-date per the patient. No other complaints at this time. No other modifying factors. Related Data Home Medications Medication Instructions Recorded Confirmed amlodipine 10 mg tablet 10 mg PO DAILY 04/04/19 03/09/21 aspirin 81 mg tablet,delayed 81 mg PO DAILY 04/04/19 03/09/21 release atorvastatin 40 mg tablet 40 mg PO DAILY 04/04/19 03/09/21 bupropion HCl 150 mg 24 hr tablet, 150 mg PO QAM 04/04/19 03/09/21 extended release losartan 100 1 tab PO DAILY 04/04/19 07/03/20 mg-hydrochlorothiazide 25 mg tablet multivitamin 1 cap PO DAILY 04/04/19 03/09/21 diphenhydramine HCl 25 mg capsule 25 mg PO QHS 04/17/20 07/03/20 hydrochlorothiazide 25 mg tablet 25 mg PO DAILY 04/17/20 03/09/21 amoxicillin-pot clavulanate 1 tab PO BID #18 tab 03/09/21 [Augmentin] losartan 100 mg PO DAILY 03/09/21 03/09/21 potassium chloride 10 meq PO DAILY 03/09/21 03/09/21 Previous Rx's Medication Instructions Recorded amoxicillin-pot clavulanate 1 tab PO BID #18 tab 03/09/21 [Augmentin] Allergies Allergy/AdvReac Type Severity Reaction Status Date / Time No Known Allergies Allergy Unverified 03/09/21 10:46 General MELISSA: 4 Review of Systems All systems reviewed & are unremarkable except as noted in HPI and below [facility] Medical History Back pain with radiculopathy Bilateral calf pain COPD, mild Depression Hemorrhoids Hyperlipidemia Hypertension Hypokalemia Low back pain Pap smear vag w ASC-US Seasonal affective disorder Situational anxiety Tobacco use disorder Social History Smoking/Tobacco Use Status: Current every day Tobacco Type: cigarettes Tobacco: How many years used: 30 Smoking risk assessment performed?: Yes Alcohol Intake: current Alcohol Intake frequency: 0-2 drinks per day Drug use: Never Substance use type: does not use Current gender identity: female Do you feel safe at home: Yes Do you feel safe in your relationship?: Yes Exam Narrative Exam Narrative: 1.Const: Well-nourished, Well-developed, appearing stated age 2.Eyes: PERRL, no conjunctival injection, and symmetrical lids. 3.ENT: Atraumatic external nose and ears. Moist MM. Neck: Symmetric, trachea midline, No thyromegaly. 4.CVS: +S1/S2, No murmurs or gallops. Peripheral pulses 2+ and equal in all extremities. Brisk capillary refill in all extremities. 5.RESP: Unlabored respiratory effort. Clear to auscultation bilaterally. No wheezes rales or rhonchi 6.GI: Soft, Nontender/Nondistended, No hepatosplenomegaly. No guarding or rebound. 7.MSK: Normocephalic, Extremities w/o deformity or ttp No cyanosis or clubbing, Normal movement of all extremities 8.Skin: Patient's right hand demonstrates multiple small bite sánchez over the thenar eminence on the dorsal side, minimal swelling, minimal redness. No fluctuance. No drainage actively. No pain with flexion or extension actively or passively of any of the digits. Good movement of the wrist. Capillary refill is brisk. Patient's left hand on the dorsal aspect of the middle digit on the distal phalangeal component demonstrate 2 small puncture wounds with mild swelling. No fluctuance. No pain at all with passive or active flexion or extension of those digits, no traveling redness. 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 Sensation grossly intact, no focal neurologic deficits. 10.Psych: (AAO) x3. Appropriate mood and affect
[2021-03-09] MEDS: Amox. 875/Clav. 125, 2 TABS/BTL 1 TAB PO (11:06)
[2021-03-09 11:07] VITALS: BP 179/87; PULSE 89; RESP 16; TEMP 36.4; O2SAT 98
== END 2021-03-09 11:14 | disposition home or self-care (01) ==
LOC: ER 10:50
PROVIDERS: Emergency Provider Student in an Organized Health Care Education/Training Program; PCP Family Medicine
DX: S61.431A Puncture wound without foreign body of right hand, initial encounter (principal); S61.432A Puncture wound without foreign body of left hand, initial encounter; W55.01XA Bitten by cat, initial encounter
CPT/HCPCS: 90471; 99284; 99283

== ENCOUNTER 2021-03-10 09:24 | Inpatient (IN) | payer BC, SELFPAY ==
[2021-03-10 09:29] VITALS: BP 153/76; PULSE 100; RESP 18; TEMP 36.7; O2SAT 98
--- NOTE | 2021-03-10 09:46 | W.ED.GENAD ---
Discharge Plan Disposition Patient Disposition: [facility] INPATIENT Condition: Stable Discharge Details Clinical Impression: Cat bite of left hand with infection Admit Date/Time: 03/10/21 10:16 Admit Provider: Carlene Real Attending Provider: Carlene Real Primary Care Provider: Lesley Henriquez V ED Provider: Jon Robles Discharge Data Discharge Date/Time-TO BE ENTERED AT DEPARTURE: 03/10/21 11:05 Medical Decision Making 60-year-old female presents 2 days status post cat bite by her pet cat. Cat rabies shots are no up-to-date but cat is house cat only. Patient was seen here yesterday and provided tetanus prophylaxis and started on Augmentin. She is taken 3 doses of Augmentin. She now has worsening swelling and pain of her left third digit with associated tenderness over her mid and distal phalanx and DIP. Patient has pain with passive extension and hyperflexion at the DIP. I am concerned about deep space infection and tenosynovitis. Patient is afebrile does not appear septic. Plan to treat with Zosyn IV. I called and spoke with Dr. Mcgrath, on-call orthopedics, discussed ED presentation and course, he recommends patient be admitted to the hospitalist service for IV antibiotics and he will plan on taking the patient to the operating room today as soon as the OR is available. HPI General Mode of arrival: ambulatory. Date/Time Provider Initiated Documentation: 03/10/21 09:26. Limitations to Documentation: no limitations. Information obtained by: patient. HPI Narrative: 60-year-old female presents 2 days after being scratched and bit by her pet cat, seen here yesterday in the emergency department and started on Augmentin, returns today for worsening swelling and pain of left 3rd digit. Pain described as feels full. Pain is moderate and worse on extension of digit. No associated fever. Right hand scatches healing well. Related Data Home Medications Medication Instructions Recorded Confirmed amlodipine 10 mg tablet 10 mg PO DAILY 04/04/19 03/19/21 aspirin 81 mg tablet,delayed 81 mg PO DAILY 04/04/19 03/19/21 release atorvastatin 40 mg tablet 40 mg PO DAILY 04/04/19 03/19/21 bupropion HCl 150 mg 24 hr tablet, 150 mg PO QAM 04/04/19 03/19/21 extended release multivitamin 1 cap PO DAILY 04/04/19 03/19/21 diphenhydramine HCl 25 mg capsule 25 mg PO QHS 04/17/20 03/19/21 hydrochlorothiazide 25 mg tablet 25 mg PO DAILY 04/17/20 03/19/21 losartan 100 mg PO DAILY 03/09/21 03/19/21 potassium chloride See Rx Instructions .ROUTE .COMPLEX 03/09/21 03/19/21 L. acidophilus,casei,rhamnosus 1 cap PO DAILY #30 cap 03/14/21 03/19/21 [Bio-K plus] levofloxacin 750 mg tablet 750 mg PO DAILY 7 Days #7 tab 03/19/21 03/19/21 Previous Rx's Medication Instructions Recorded L. acidophilus,casei,rhamnosus 1 cap PO DAILY #30 cap 03/14/21 [Bio-K plus] levofloxacin 750 mg tablet 750 mg PO DAILY 7 Days #7 tab 03/19/21 Allergies Allergy/AdvReac Type Severity Reaction Status Date / Time No Known Allergies Allergy Unverified 03/19/21 09:46 General Stated Complaint: Cellulitis MELISSA: 4 Review of Systems All systems reviewed & are unremarkable except as noted in HPI and below Constitutional Constitutional: Denies fever(s) Integumentary/Breasts Skin/Breast: Reports as per HPI COUNTS INCLUDE 234 BEDS AT THE [facility] Medical History (Updated 03/19/21 @ 10:06 by Stan Sotelo MD) Back pain with radiculopathy Bilateral calf pain COPD, mild Depression Hemorrhoids Hyperlipidemia Hypertension Hypokalemia Low back pain Pap smear vag w ASC-US Seasonal affective disorder Situational anxiety Tobacco use disorder Surgical History (Updated 03/10/21 @ 13:14 by Carlene Real MD) History of back surgery Family History (Updated 03/10/21 @ 13:18 by Carlene Real MD) Mother Stroke Diabetes Hypertension Father Stroke Hypertension Cancer prostate cancer Sister Cancer tongue/throat cancer (smoker) Social History (Updated 03/10/21 @ 13:19 by Carlene Real MD) Smoking/Tobacco Use Status: Current every day Tobacco Type: cigarettes Smoking packs per day: 0.5 Smoking cigarettes per day: 10.0 Years smoked: 35 Smoking pack-years: 17.50 Tobacco: How many years used: 35 Counseling given: provider counseling and support medications Smoking risk assessment performed?: Yes Alcohol Intake: current Alcohol Intake frequency: 0-2 drinks per day Drug use: Never Substance use type: does not use Current gender identity: female Do you feel safe at home: Yes Do you feel safe in your relationship?: Yes Exam Const General: cooperative and no acute distress HENMT Mouth: moist mucous membranes Cardio Rate: regular rate and not tachycardic Rhythm: regular rhythm Skin Rashes: rashes noted (Erythema of left third digit) Trauma: laceration (Superficial lacerations and abrasions to right hand healing well) and puncture (Left third digit dorsal near DIP) Neuro General: patient alert, patient awake and tone normal Sensory Exam: other (Patient notes distal third digit sensation slightly diminished) Extrem Left upper extremity: hand (Left third digit is swollen with erythema) Details: neuromotor exam normal, neurosensory exam abnormal Details: digital nerve sensory function abnormal Location: in the 3rd digit (Diminished to light touch), tenderness Location: of the 3rd digit Location: at the middle phalanx, at the distal phalanx and at the DIP joint, abnormal ROM of finger Details: pain with passive ROM Location: of the 3rd digit (Extension) and puncture wound (Dorsal left third distally) Course Vital Signs Vital signs: Vital Signs Temperature 36.7 C 03/10/21 09:29 Pulse 100 H 03/10/21 09:29 Respiratory Rate 18 03/10/21 09:29 Blood Pressure 153/76 H 03/10/21 09:29 Pulse Oximetry 98 03/10/21 09:29 Temperature 36.7 C 03/10/21 09:29 Temperature Source Skin 03/10/21 09:29 Pulse 100 H 03/10/21 09:29 Respiratory Rate 18 03/10/21 09:29 Respiratory Effort Non-Labored 03/10/21 09:32 Blood Pressure 153/76 H 03/10/21 09:29 Blood Pressure Position Sitting 03/10/21 09:29 Pulse Oximetry 98 03/10/21 09:29 Oxygen Delivery Method Room Air 03/10/21 09:29 Oxygen Flow Rate 0 03/10/21 09:29 Pain Level 10 03/10/21 09:29
[2021-03-10 10:00] LABS: Abs Immature Grans 0.05 10^3/uL (0.0-0.06); Absolute Basophil Count 0.03 10^3/uL (0.0-0.2); Absolute Eosinophil Count 0.17 10^3/uL (0.0-0.7); Absolute Lymphocyte Count 1.98 10^3/uL (1.2-3.4); Absolute Monocyte Count 0.74 10^3/uL (0.1-0.8); Basophils % 0.2; Eosinophils % 1.2; HCT 41.8 % (36.0-46.0); HGB 13.9 g/dL (11.2-15.7); Immature Grans % 0.3; Lymphocytes % 13.7; MCH 28.4 pg (27.0-33.0); MCHC 33.3 % (32.0-36.0); MCV 85.5 fL (80-95); MPV 9.5 fL (8.0-11.0); Monocytes % 5.1; Neutrophils % 79.5; Nucleated RBC 0 %; Platelet Count 339 10^3/uL (130-400); RBC 4.89 10^6/uL (3.93-5.22); RDW 13.1 % (11.7-14.6); RDW-SD 40.7 fL; WBC 14.47 10^3/uL (4.4-10.8)
[2021-03-10 10:03] LABS: ESR 53 mm//hr (0-30)
[2021-03-10 10:14] LABS: ALT 30 U/L (14-59); AST 20 U/L (15-37); Albumin 3.9 g/dL (3.4-5.0); Alkaline Phosphatase 100 U/L (46-116); Anion Gap 9.9 mmol/L (3-11); BUN 8 mg/dL (7-18); Bilirubin, Total 0.5 mg/dL (0.2-1.0); C-Reactive Protein 4.16 mg/dL (0.0-0.3); CO2 32.1 mmol/L (21.0-32.0); CREATININE 1.2 mg/dL (0.55-1.02); Calcium 9.6 mg/dL (8.5-10.1); Chloride 98 mmol/L (98-107); Estimated GFR 45.67 (mL/min/1.73m2); Glucose 159 mg/dL (74-106); Potassium 3.4 mmol/L (3.5-5.1); Sodium 140 mmol/L (136-145); Total Protein 8.3 g/dL (6.4-8.2)
--- NOTE | 2021-03-10 10:15 | DI.RAD_ITS ---
Exam(s) XR FINGER LT MIDDLE EXAM: XR FINGER LT MIDDLE CLINICAL HISTORY: pain, swelling. TECHNIQUE: 2D digital imaging was performed. COMPARISON: No exams were available for comparison FINDINGS: There is soft tissue swelling 3rd-middle finger most prominent over the proximal interphalangeal join t and distal dorsal to this. No radiopaque foreign body. Degenerative changes noted in the DIP join t but no radiographic evidence of osteomyelitis. No gas in the soft tissues. IMPRESSION: Soft tissue swelling is described above in the 3rd-middle finger. Given history here this is probabl y associated with either abscess or infectious tenosynovitis. MRI recommended. No obvious radiographic evidence of osteomyelitis. Significant degenerative changes distal interphalangeal joint of the finger noted DATA REPOSITORY: RADIATION DOSE DELIVERED:
[2021-03-10] MEDS: PIPERACILLIN/TAZO 4.5 GM in Normal Saline 100 ML IVPB ×2 (10:16→17:51)
[2021-03-10] MEDS: Normal Saline Flush 10 ML SYR IVP ×2 (10:16→11:26)
--- NOTE | 2021-03-10 10:33 | W.ANESPRE ---
General Info Date of Service Date Performed: 03/10/21 Height: 5 ft 5 in Weight: 86.183 kg Body Mass Index (BMI): 31.6 Meds Allergies and Home Medications Allergies Allergy/AdvReac Type Severity Reaction Status Date / Time No Known Allergies Allergy Unverified 03/09/21 10:46 Home Medication Medication Instructions Recorded amlodipine 10 mg tablet 10 mg PO DAILY 04/04/19 aspirin 81 mg tablet,delayed 81 mg PO DAILY 04/04/19 release atorvastatin 40 mg tablet 40 mg PO DAILY 04/04/19 bupropion HCl 150 mg 24 hr tablet, 150 mg PO QAM 04/04/19 extended release losartan 100 1 tab PO DAILY 04/04/19 mg-hydrochlorothiazide 25 mg tablet multivitamin 1 cap PO DAILY 04/04/19 diphenhydramine HCl 25 mg capsule 25 mg PO QHS 04/17/20 hydrochlorothiazide 25 mg tablet 25 mg PO DAILY 04/17/20 amoxicillin-pot clavulanate 1 tab PO BID #18 tab 03/09/21 [Augmentin] losartan 100 mg PO DAILY 03/09/21 potassium chloride See Rx Instructions .ROUTE .COMPLEX 03/09/21 Current Visit Medications: Current Medications Generic Name Dose Route Start Last Admin Trade Name Freq PRN Reason Stop Dose Admin Acetaminophen 650 mg 03/10/21 10:15 Acetaminophen 325 Mg Tab PO Q4H PRN PRN Al Hydrox/Mg Hydrox/Simethicone 30 ml 03/10/21 10:15 Mylanta Suspension 30 Ml Cup PO Q2H PRN PRN Dimethicone/Zinc Oxide 0 gm 03/10/21 10:15 Pardeep Protect Cream 142 Gm Tube TP PRN PRN Sodium Chloride 500 mls @ 0 mls/hr 03/10/21 09:45 Saline 500ml Bag IV PRN PRN As Directed Sodium Chloride 1,000 mls @ 125 mls/hr 03/10/21 10:15 Saline 1000ml Bag IV INFUSION KEERTHI Piperacillin Sod/Tazobactam 100 mls @ 25 mls/hr 03/10/21 18:00 Sod 4.5 gm/ Sodium Chloride IVPB Q8H [facility] Protocol IV Miscellaneous Supplies 1 each 03/10/21 10:15 Iv Access IV DIRECTED KEERTHI Polyethylene Glycol 17 gm 03/10/21 10:15 Polyethylene Glycol 3350 17 Gm Packet PO DAILY PRN PRN Constipation Sodium Chloride 0 ml 03/10/21 09:45 03/10/21 10:16 Normal Saline Flush 10 Ml Syr IVP 20 ml PRN PRN Administration PFSH Active Problems Active Problems: Problem Status Onset Code Cat bite Cat bite of left hand S61.452A, W55.01XA Cat bite of right hand S61.451A, W55.01XA Cat bite of left hand with infection S61.452A, L08.9, W55.01XA Leg wound, right S81.801A Medical History Medical History (Updated 03/10/21 @ 10:05 by Jon Roblse MD) Back pain with radiculopathy Bilateral calf pain COPD, mild Depression Hemorrhoids Hyperlipidemia Hypertension Hypokalemia Low back pain Pap smear vag w ASC-US Seasonal affective disorder Situational anxiety Tobacco use disorder Tobacco Smoking/Tobacco Use Status: Current every day Tobacco Type: cigarettes Tobacco: How many years used: 30 Alcohol Alcohol Intake: current Alcohol intake frequency: 0-2 drinks per day Substance Use Substance use: Never Substance use type: does not use Vital Signs and Lab Results Vital Signs Most Recent Vital Signs in EMR: Most Recent Vital Signs Temp Pulse Resp BP Pulse Ox 36.7 C 100 H 18 153/76 H 98 03/10/21 09:29 03/10/21 09:29 03/10/21 09:29 03/10/21 09:29 03/10/21 09:29 Lab Results Result Diagrams: 03/10/21 09:53 03/10/21 09:53 Blood Type / Crossmatch: No Data to Display Complete Blood Count: White Blood Count 14.47 10^3/uL (4.4-10.8) H 03/10/21 09:53 03/10/21 Red Blood Count 4.89 10^6/uL (3.93-5.22) 03/10/21 09:53 03/10/21 Hemoglobin 13.9 g/dL (11.2-15.7) 03/10/21 09:53 03/10/21 Hematocrit 41.8 % (36.0-46.0) 03/10/21 09:53 03/10/21 Platelet Count 339 10^3/uL (130-400) 03/10/21 09:53 03/10/21 Complete Metabolic Panel: Sodium Level 140 mmol/L (136-145) 03/10/21 09:53 03/10/21 Potassium Level 3.4 mmol/L (3.5-5.1) L 03/10/21 09:53 03/10/21 Chloride Level 98 mmol/L (98-107) 03/10/21 09:53 03/10/21 Carbon Dioxide Level 32.1 mmol/L (21.0-32.0) H 03/10/21 09:53 03/10/21 Blood Urea Nitrogen 8 mg/dL (7-18) 03/10/21 09:53 03/10/21 Creatinine 1.2 mg/dL (0.55-1.02) H 03/10/21 09:53 03/10/21 Magnesium Level 2.1 mg/dL (1.8-2.4) 02/05/19 08:30 02/05/19 Calcium Level 9.6 mg/dL (8.5-10.1) 03/10/21 09:53 03/10/21 Albumin 3.9 g/dL (3.4-5.0) 03/10/21 09:53 03/10/21 Glucose Level 159 mg/dL (74-106) H 03/10/21 09:53 03/10/21 C-Reactive Protein 4.16 mg/dL (0.0-0.3) H 03/10/21 09:53 03/10/21 Liver Function Panel: Alanine Aminotransferase (ALT/SGPT) 30 U/L (14-59) 03/10/21 09:53 03/10/21 Aspartate Amino Transf (AST/SGOT) 20 U/L (15-37) 03/10/21 09:53 03/10/21 Coagulation Panel: No Data to Display Cardiac Panel: No Data to Display Arterial Blood Gas: No Data to Display Venous Blood Gas: No Data to Display Pancreas Panel: No Data to Display Thyroid Panel: Thyroid Stimulating Hormone (TSH) 3.59 uIU/mL (0.36-3.74) 02/24/11 14:58 02/24/11 Infectious Disease: No Data to Display Blood Cultures: No Data to Display Toxicology Panel: No Data to Display Anesthesia Assessment and Plan Anesthesia History Personal History: No History of Anesthesia Complications Family History: No Family History of Anesthesia Complications Exercise Tolerance Exercise Tolerance: Metabolic Equivalents>4 Cardiac & Pulmonary Exam Cardiac Exam: Normal S1/S2 Heart Sounds Pulmonary Exam: Clear Bilateral Breath Sounds Airway Exam Known Difficult Airway: No Mallampati Class: 3 Mouth Opening: Normal (> 3cm) Thyromental Distance: Greater than 3 cm Neck Range of Motion: Full ROM Neck Circumference: Normal Teeth Condition: Normal Dentition ASA Classification ASA Score: ASA 2 Emergency Case?: Yes NPO Status NPO Status: Unable to Assess (coffee with cream and sugar at 0830) Anesthesia Plan Anesthesia Technique: Primary Nerve Block Airway Planned: Endotracheal Tube Monitors Used: Standard Monitors Preoperative Comments:: 60 yo for cat bite. presented to ED last night was discharged with Augmentin. returns this AM with increasing pain and swelling. Plan for operative washout. denies anesthesia complications, most recent anesthesia was at [facility] for spine surgery for which she was a mac 4 grade 1 and easy mask. Discussed risks, benefits, and alternatives for GA vs regional anesthesia. Pt is in a considerable amount of pain and is very interested in regional anesthesia as is Dr. Robles. Discussed forearm vs axillary vs supraclav blocks. Will perform forearm blocks in the ED for pain control and likely for surgical anesthesia with sedation.
[2021-03-10 10:35] VITALS: BP 160/84; PULSE 93; RESP 20; TEMP 36.4; O2SAT 98
[2021-03-10 10:41] VITALS: BMI 31.6
--- NOTE | 2021-03-10 10:45 | DI.VRAD_ITS ---
PROCEDURE INFORMATION: Exam: XR Left Finger(s) Exam date and time: 03/10/2021 9:54 AM Age: 60 years old Clinical indication: Pain; Finger(s); Left; Patient HX: Cat bite/scratch 2 days ago TECHNIQUE: Imaging protocol: XR Left fingers. Views: Minimum 2 views. COMPARISON: No relevant prior studies available. FINDINGS: Bones/joints: No fracture. Advanced degenerative changes of the DIP joint. Soft tissues: Soft tissue swelling. No radiopaque foreign bodies within the soft tissues. No air present within the soft tissues. IMPRESSION: Soft tissue swelling. No evidence of fracture or osteomyelitis. Dictated and Authenticated by: Scout Bradford MD. Ordering:CRUZITO Webb MD
[2021-03-10 10:50] LABS: Source Nasal/Nares
[2021-03-10 11:00] VITALS: BP 171/90; PULSE 79; RESP 18; TEMP 37.1; O2SAT 97
[2021-03-10 11:05] LABS: Procalcitonin < 0.1 ng/mL
[2021-03-10] MEDS: Normal Saline 1,000 ML 125 ML IV ×2 (11:26→22:59)
[2021-03-10] MEDS: Acetaminophen 325 MG TAB 650 MG PO (11:26)
--- NOTE | 2021-03-10 11:34 | ANES.NERVE_ITS ---
Nerve Block Single Injection Procedure Date and Time Date Performed: 03/10/21 Procedure Start: 11:10 Location Where Procedure Performed Procedure Location: Med/Surg Reason Performed: Postoperative Analgesia Requesting Provider: Jon Robles Timeout Performed Timeout Performed: Yes Monitoring Used ECG, Blood Pressure and SpO2 Sterility Sterility: Hand Hygiene, Surgical Cap, Surgical Mask and Sterile Gloves Sedation Given During Procedure Sedation Given (Indicate Dose Given): No Sedation given Patient Mental Status Patient Mental Status: Awake Nerve Block 1st Nerve Block: Laterality: Left Block Type: Radial Needle / Catheter Used: Other Local Anesthetic Bolus (Indicate Dose Given): Injected in 3-5ml increments after negative blood aspiration and Bupivacaine 0.5% with Epinephrine (1: 200,000) (6 mL) Additives (Indicate Dose Given): None Ultrasound: Sterile probe cover and gel used Ultrasound Image Saved?: Yes Nerve Stimulator: Not Used Paresthesia: None Procedure Tolerated: No Complications Procedure Outcome: Successful Performed By: Gaurav Childers 2nd Nerve Block: Laterality: Left Block Type: Median Needle / Catheter Used: Other (25 ga 1.5 in) Local Anesthetic Bolus (Indicate Dose Given): Injected in 3-5ml increments after negative blood aspiration and Bupivacaine 0.5% with Epinephrine (1:200,000) (8 mL) Additives (Indicate Dose Given): None Ultrasound: Sterile probe cover and gel used Ultrasound Image Saved?: No Nerve Stimulator: Not Used Paresthesia: None Procedure Tolerated: No Complications Procedure Outcome: Successful Procedure Comment: pt was bit by her cat, Dr. Robles was requesting regional anesthesia due to her pain. Regional anesthesia discussed with pt in hopes to also make it her primary anesthetic for her was out and also for post operative pain control. Block was performed without difficulty and pts pain significantly reduced after. discussed that Dr. Mcgrath may have to supplement with local/do a finger block for the procedure, but we would likely be able to avaiod GA. Performed By: Gaurav Childers
--- NOTE | 2021-03-10 13:09 | HPE_ITS ---
Date of service: 03/10/21 Time of Service: 11:30 Assessment and Plan Assessment and plan (1) Cat bite of left hand with infection: Status: Acute Assessment and plan: Agree with zosyn initiated in the ED. For OR today. (2) Cat bite of right hand: Status: Acute Assessment and plan: No obvious need for surgical debridement at this time, but will monitor. IV zosyn. (3) Hypertension: Status: Chronic Assessment and plan: Continue home therapy with the exception of HCTZ as the patient is on IVF. (4) COPD, mild: Status: Chronic Assessment and plan: Not in acute exacerbation. Not requiring therapy at this time. Encouarge to quit smoking. (5) DVT prophylaxis: Status: Acute Assessment and plan: Can start SC lovenox post OR (6) Discharge planning issues: Status: Acute Assessment and plan: Full code Admit to inpatient status with expected length of stay >2 midnights History of Present Illness History of Present Illness Chief Complaint: cat bite Narrative: Ms Remy is a 60 year old female with PMHx of hypertension and hyperlipidemia as well as tobacco abuse who was bitten by her cat on Thursday (the patient was trying to separate a fight between her cat and her dog). She was bitten on both of her hands. The cat is a strictly indoor cat and is not vaccinated against rabies but also has very low risk of exposure to rabies. The patient was evaluated in the ED yesterday and initiated on oral augmentin. Since then, her right hand has gotten better, but her left hand has gotten worse, and specifically, her left 3rd digit is very painful and swollen. She was initiated on IV zosyn. Orthopedics were consulted and were planning to take the patient to the OR today. Hospitalist admission was requested. The patient denies fevers, chills, chest pain, shortness of breath, exposure to or symptoms of COVID-19. Review of Systems All systems reviewed & are unremarkable except as noted in HPI and below [facility] Medical History (Updated 03/10/21 @ 13:30 by Carlene Real MD) Back pain with radiculopathy Bilateral calf pain COPD, mild Depression Hemorrhoids Hyperlipidemia Hypertension Hypokalemia Low back pain Pap smear vag w ASC-US Seasonal affective disorder Situational anxiety Tobacco use disorder Surgical History (Updated 03/10/21 @ 13:14 by Carlene Real MD) History of back surgery Family History (Updated 03/10/21 @ 13:18 by Carlene Real MD) Mother Stroke Diabetes Hypertension Father Stroke Hypertension Cancer prostate cancer Sister Cancer tongue/throat cancer (smoker) Social History (Updated 03/10/21 @ 13:19 by Carlene Real MD) Smoking/Tobacco Use Status: Current every day Tobacco Type: cigarettes Smoking packs per day: 0.5 Smoking cigarettes per day: 10.0 Years smoked: 35 Smoking pack-years: 17.50 Tobacco: How many years used: 35 Counseling given: provider counseling and support medications Smoking risk assessment performed?: Yes Alcohol Intake: current Alcohol Intake frequency: 0-2 drinks per day Drug use: Never Substance use type: does not use Current gender identity: female Do you feel safe at home: Yes Do you feel safe in your relationship?: Yes Meds Allergies and Home Medications Allergies Allergy/AdvReac Type Severity Reaction Status Date / Time No Known Allergies Allergy Unverified 03/09/21 10:46 Home Medications Medication Instructions Recorded Confirmed Type amlodipine 10 mg tablet 10 mg PO DAILY 04/04/19 03/10/21 History aspirin 81 mg tablet,delayed 81 mg PO DAILY 04/04/19 03/10/21 History release atorvastatin 40 mg tablet 40 mg PO DAILY 04/04/19 03/10/21 History bupropion HCl 150 mg 24 hr tablet, 150 mg PO QAM 04/04/19 03/10/21 History extended release multivitamin 1 cap PO DAILY 04/04/19 03/10/21 History diphenhydramine HCl 25 mg capsule 25 mg PO QHS 04/17/20 03/10/21 History hydrochlorothiazide 25 mg tablet 25 mg PO DAILY 04/17/20 03/10/21 History amoxicillin-pot clavulanate 1 tab PO BID #18 tab 03/09/21 03/10/21 Rx [Augmentin] losartan 100 mg PO DAILY 03/09/21 03/10/21 History potassium chloride See Rx Instructions .ROUTE .COMPLEX 03/09/21 03/10/21 History Exam Narrative Exam Narrative: General: Pleasant middle-aged female, A&Ox3, does appear somewhat uncomfortable, good history provider Neurological: A&Ox3, no focal deficits Psychiatric: appropriate speech pattern/content Skin: Dorsal surface right hand with several scratches and bites - these appear to be healing well; L hand 3rd digit with swelling/tenosynovitis distally, difficulty extending the finger HEENT: Atraumatic, normocephalic, EOMI, MMM, clear oropharynx, no submandibular or cervical lymphadenopathy, no goiter or JVD Cardiovascular: RRR, no m/r/g Lungs: CTAB Gastrointestinal: soft, nontender, nondistended Genitourinary: deferred Extremities: see skin exam above. No edema BLE's. Results Imaging Additional studies: XR L hand: Soft tissue swelling. No evidence of fracture or osteomyelitis. Labs Result diagrams: 03/10/21 09:53 03/10/21 09:53 Labs: Laboratory Results - last 24 hr 03/10/21 03/10/21 03/10/21 09:53 09:53 09:53 WBC 14.47 H RBC 4.89 Hgb 13.9 Hct 41.8 MCV 85.5 MCH 28.4 MCHC 33.3 RDW 13.1 Plt Count 339 MPV 9.5 Immature Gran % 0.3 Neutrophils % 79.5 Lymphocytes % 13.7 Monocytes % 5.1 Eosinophils % 1.2 Basophils % 0.2 Nucleated RBC % 0 Absolute Neutrophils 11.50 H Absolute Lymphocytes 1.98 Absolute Monocytes 0.74 Absolute Eosinophils 0.17 Absolute Basophils 0.03 ESR 53 H Sodium 140 Potassium 3.4 L Chloride 98 Carbon Dioxide 32.1 H Anion Gap 9.9 BUN 8 Creatinine 1.2 H Estimated GFR/1.73 m2 45.67 Glucose 159 H Calcium 9.6 Total Bilirubin 0.5 AST 20 ALT 30 Alkaline Phosphatase 100 C-Reactive Protein 4.16 H Total Protein 8.3 H Albumin 3.9 Procalcitonin COVID-19 Source 03/10/21 03/10/21 09:53 10:40 WBC RBC Hgb Hct MCV MCH MCHC RDW Plt Count MPV Immature Gran % Neutrophils % Lymphocytes % Monocytes % Eosinophils % Basophils % Nucleated RBC % Absolute Neutrophils Absolute Lymphocytes Absolute Monocytes Absolute Eosinophils Absolute Basophils ESR Sodium Potassium Chloride Carbon Dioxide Anion Gap BUN Creatinine Estimated GFR/1.73 m2 Glucose Calcium Total Bilirubin AST ALT Alkaline Phosphatase C-Reactive Protein Total Protein Albumin Procalcitonin < 0.1 COVID-19 Source Nasal/nares Last Vital Signs Temp 37.1 C 03/10/21 11:00 Pulse 79 05/09/21 11:00 Resp 18 03/10/21 11:00 BP 171/90 H 03/10/21 11:00 Pulse Ox 97 03/10/21 11:00 COVID-19 Screening Have you, or household traveled for leisure in last 14 days?: No Had IN PERSON contact w/suspected or confirmed C-19 person: No
[2021-03-10 15:20] VITALS: BP 162/91; PULSE 103; RESP 18; TEMP 37.1; O2SAT 96
[2021-03-10] MEDS: MORPHine 2 MG/ML SYR IVP (15:48)
[2021-03-10 16:33] LABS: COVID-19 PCR Negative (Negative)
[2021-03-10] MEDS: HYDROcodone 5/Acetaminophen 325 TAB PO (17:50)
[2021-03-10] MEDS: Ketorolac 15 MG/ML VIAL IVP ×2 (17:51→23:06)
[2021-03-10 20:02] VITALS: BP 150/73; PULSE 102; RESP 18; TEMP 38.1; O2SAT 94
[2021-03-10] MEDS: diphenhydrAMINE 25 MG CAP PO (22:59)
[2021-03-11 00:03] VITALS: BP 147/78; PULSE 87; RESP 17; TEMP 37.2; O2SAT 89
[2021-03-11] MEDS: PIPERACILLIN/TAZO 4.5 GM in Normal Saline 100 ML IVPB ×3 (02:14→17:25)
[2021-03-11] MEDS: HYDROcodone 5/Acetaminophen 325 TAB PO ×4 (02:22→22:10)
[2021-03-11 03:57] VITALS: BP 151/73; PULSE 103; RESP 18; TEMP 37.2; O2SAT 89
[2021-03-11] MEDS: Ketorolac 15 MG/ML VIAL IVP ×3 (06:17→17:25)
[2021-03-11 06:51] LABS: Abs Immature Grans 0.06 10^3/uL (0.0-0.06); Absolute Basophil Count 0.03 10^3/uL (0.0-0.2); Absolute Eosinophil Count 0.12 10^3/uL (0.0-0.7); Absolute Lymphocyte Count 1.52 10^3/uL (1.2-3.4); Absolute Monocyte Count 0.86 10^3/uL (0.1-0.8); Basophils % 0.2; Eosinophils % 0.8; HCT 35.9 % (36.0-46.0); HGB 11.9 g/dL (11.2-15.7); Immature Grans % 0.4; Lymphocytes % 10.5; MCH 28.5 pg (27.0-33.0); MCHC 33.1 % (32.0-36.0); MCV 86.1 fL (80-95); MPV 9.8 fL (8.0-11.0); Monocytes % 5.9; Neutrophils % 82.2; Nucleated RBC 0 %; Platelet Count 294 10^3/uL (130-400); RBC 4.17 10^6/uL (3.93-5.22); RDW 13.1 % (11.7-14.6); RDW-SD 41.1 fL; WBC 14.52 10^3/uL (4.4-10.8)
[2021-03-11 06:56] LABS: Absolute Neutrophil Count 11.94 10^3/uL (1.2-6.7)
[2021-03-11 07:05] LABS: Anion Gap 10.4 mmol/L (3-11); BUN 8 mg/dL (7-18); C-Reactive Protein 6.47 mg/dL (0.0-0.3); CO2 27.6 mmol/L (21.0-32.0); Calcium 8.5 mg/dL (8.5-10.1); Chloride 101 mmol/L (98-107); Estimated GFR 56.37 (mL/min/1.73m2); Glucose 141 mg/dL (74-106); Magnesium 1.7 mg/dL (1.8-2.4); Sodium 139 mmol/L (136-145)
[2021-03-11 07:10] LABS: Potassium 2.8 mmol/L (3.5-5.1)
[2021-03-11] MEDS: amLODIPine 10 MG TAB PO (07:35)
[2021-03-11] MEDS: Aspirin E.C. 81 MG TABEC PO (07:35)
[2021-03-11] MEDS: buPROPion-XL 150 MG TABCR PO (07:35)
[2021-03-11] MEDS: Losartan 50 MG TAB 100 MG PO (07:35)
[2021-03-11] MEDS: Atorvastatin 40 MG TAB PO (07:35)
[2021-03-11] MEDS: Multivitamin TAB 1 TAB PO (07:36)
[2021-03-11] MEDS: Nicotine 14 MG/24 HR PATCH TD (07:47)
[2021-03-11 07:48] VITALS: BP 146/75; PULSE 94; RESP 20; TEMP 36.7; O2SAT 92
[2021-03-11] MEDS: Potassium Chloride 20 MEQ TABCR 40 MEQ PO (08:14)
[2021-03-11] MEDS: MAGNESIUM SULFATE 2 GM/50 ML BAG IVPB (08:15)
[2021-03-11] MEDS: POTASSIUM CHLORIDE 20 MEQ/100 ML BAG 30 MEQ IVPB (08:38)
--- NOTE | 2021-03-11 09:09 | DI.RAD_ITS ---
Exam(s) XR PORTABLE CHEST AP EXAM: XR PORTABLE CHEST AP CLINICAL HISTORY: hypoxia overnight. TECHNIQUE: 2D digital imaging was performed. COMPARISON: CR CHEST 2 VIEWS PA,LAT from 12/27/2012 FINDINGS: Heart size is normal. The mediastinum is not widened. There is mild elevation of the right hemidiaphragm now evident, more so than previous. No significant new right lung base findings. There are mild increased markings in the left lower lob e retrocardiac region. No pleural effusions. No pulmonary edema. No pneumothorax. IMPRESSION: Mild increased markings in theleft lower lobe retrocardiac region. No pleural effusions evident. DATA REPOSITORY: RADIATION DOSE DELIVERED: All CT scans at this facility use at least one of these dose optimization techniques: automated exposure control; mA and/or kV adjustment per patient size (includes targeted e xams where dose is matched to clinical indication); or iterative reconstruction.
--- NOTE | 2021-03-11 09:39 | PDOC.CMIN ---
- If Service Date Differs Date of service: 03/11/21 Time of Service: 09:39 Care Management Initial Assess REASON FOR HOSPITALIZATION:: Cat bite PAST MEDICAL HISTORY/PAST SURGICAL HISTORY:: Medical History (Updated 03/10/21 @ 13:30 by Carlene Real MD). Back pain with radiculopathy. Bilateral calf pain. COPD, mild. Depression. Hemorrhoids. Hyperlipidemia. Hypertension. Hypokalemia. Low back pain. Pap smear vag w ASC-US. Seasonal affective disorder. Situational anxiety. Tobacco use disorder. Surgical History (Updated 03/10/21 @ 13:14 by Carlene Real MD). History of back surgery PREVIOUS FUNCTIONAL STATUS/SOCIAL/FAMILY SUPPORTS:: Tita lives in a single family home in [place], [place]. She works for the [employer] in [facility] and is independent at baseline.. Odette has 2 adult children, a son and a daughter, and twin grandchildren. Currently Odette's sister is staying with her as she is recovering from cancer. CURRENT FUNCTIONAL STATUS:: Odette was siting up in bed when CM met with her. She showed CM her infected finger and commented on how painful it is. Odette relayed the details of her injury and verbalized how upsetting it was for her grandson to witness. Apparently her daughter and grandson came to visit and brought their dogs. Odette's cat attacked the dogs and Odette became injured while trying to separate the animals. She informed CM that she anticipates being at [facility] for another 2 days for continued IV antibiotics. ADVANCE DIRECTIVES:: none on file. provided with a copy of the [facility] AD forms Has patient been provided with info about the portal/API?: Yes Did the patient sign up for the portal?: No CODE STATUS:: Full Code INSURANCE COVERAGE / FINANCIAL ISSUES:: BC BS FEP CURRENT HOME/COMMUNITY SERVICES/EQUIPMENT:: none currently PRIMARY CARE PHYSICIAN:: Lesley Henriquez POTENTIAL DISCHARGE NEEDS:: Follow up with PCP and plan of care PATIENT/FAMILY EDUCATION NEEDS:: Review of discharge instructions, medications, follow up plan, Ask Me Three TRANSPORTATION:: via private vehicle with family PLAN:: Odette will likely be discharged home with no new services. She will follow up with her PCP and Orthopedic sugeon and transport with family. CM will continue to support Odette and her discharge planning needs.
--- NOTE | 2021-03-11 10:43 | PHA.REVIEW ---
Pharmacy Admission Review - Admission Clinical Review (Last Updated 03/10/21 @ 13:29 by Carlene Real MD) Discharge planning issues (Acute) DVT prophylaxis (Acute) Cat bite of right hand (Acute) Cat bite of left hand with infection (Acute) No Known Allergies Allergy (Unverified 03/09/21 10:46) Height 5 ft 5 in Weight 71.7 kg - Renal Dosing Renal Dosing: BUN 8 mg/dL (7-18) 03/11/21 06:15 Creatinine 1.0 mg/dL (0.55-1.02) 03/11/21 06:15 Medications needing adjustments: Reviewed (Crcl ~53.16 mL/min current meds okay.) - Anticoagulation Anticoagulation: Hgb 11.9 g/dL (11.2-15.7) 03/11/21 06:15 Hct 35.9 % (36.0-46.0) L 03/11/21 06:15 Plt Count 294 10^3/uL (130-400) 03/11/21 06:15 Creatinine 1.0 mg/dL (0.55-1.02) 03/11/21 06:15 DVT Prohphylaxis: Reviewed (MD mentioned starting enoxaparin postop in H&P, may not be going to OR per morning report (provider aware not currently ordered). Pt mobile and has SCDs order.) Therapeutic Anticoagulation: N/A - Opiate Usage Evaluate Pain Scale/Pains Meds: Reviewed Scheduled Bowel Reg ordered if on Opiates?: No (has PRN med ordered) - Relevant Labs ESR 53 mm//hr (0-30) H 03/10/21 09:53 Sodium 139 mmol/L (136-145) 03/11/21 06:15 Potassium 2.8 mmol/L (3.5-5.1) L* 03/11/21 06:15 Chloride 101 mmol/L (98-107) 03/11/21 06:15 Magnesium 1.7 mg/dL (1.8-2.4) L 03/11/21 06:15 C-Reactive Protein 6.47 mg/dL (0.0-0.3) H 03/11/21 06:15 Electrolytes, C-Reactive P, ESR: Reviewed (mag and K+ repalcement ordered) - DM Control DM Control: Glucose 141 mg/dL (74-106) H 03/11/21 06:15 Insulin Dosing: N/A - Heart Failure/MN EF%, DANIELA's, B-Blockers, Diuretics: N/A - BP Control BP Control: Blood Pressure 146/75 Blood Pressure 151/73 Blood Pressure 147/78 If elevated: Reviewed (BP has been elevated most of admission so far. Pt has amlodipine and losartan ordered.) - Qtc Review If Elevated: N/A - IV to PO Switch IV Medications: Reviewed - Home Meds Home Med List reviewed: Reviewed (Diphenhydramine may enhance the ulcerogenic effect potassium; consider alternative dosage form such as liquid or effervescent potassium.) Relevent Home Meds Not ordered & why?: augmentin(has other abx ordered), HCTZ, potassium (IV and PO K+ one time orders this morning). - Current meds Current Medication Order Review: Reviewed - Comments Comments/Follow Ups: Watch BP, BG, mag, K+, for culture results and for med changes (additional need of BM meds, possible anticoaglation, possible renal dose adjustments). Antibiotic Activity - Pharmacy Antibiotic Review Pharmacy Antibiotic Activity: Reviewed, no change (zosyn continues (day 2), blood cultures pending (drawn after abx started))
[2021-03-11] MEDS: Normal Saline Flush 10 ML SYR IVP (11:18)
[2021-03-11 11:20] VITALS: BP 113/75; PULSE 88; RESP 19; TEMP 36.9; O2SAT 95
--- NOTE | 2021-03-11 11:40 | W.PM.PROGNOT ---
Date of Service Date of service: 03/11/21 Time of Service: 11:40 Assessment and Plan Assessment and plan (1) Hypokalemia: Status: Acute Assessment and plan: replete and follow. mag 1.7, will replete as well. (2) Cat bite of left hand: Status: Acute Assessment and plan: followed by orthopedics continue zosyn day 2 add probiotic elevation as much as possible lovenox on hold for possible surgical washout following inflammatory markers (3) Cat bite of right hand: Status: Acute Assessment and plan: improving with no signs of ongoing untreated infection. continue to monitor (4) Hypertension: Status: Chronic Assessment and plan: blood pressure stable (5) COPD, mild: Status: Chronic Assessment and plan: add incentive spirometry continue nicotine replacement while hospitalized smoking cessation discussed. (6) DVT prophylaxis: Status: Acute Assessment and plan: teds, scds lovenox on hold encourage ambulation, patient is not bedridden (7) Discharge planning issues: Status: Acute Assessment and plan: plan discharge home once she can safely be transitioned to oral antiboitics. plan discussed with Dr. Real Subjective Subjective Patient reports: no new complaints, tolerating liquids well, tolerating a regular diet, voiding w/o difficulty, no bowel movement and afebrile Interval history since last seen: patient reports no worsening symptoms and feels finger slightly less painful. otherwise no new c/o. states she is sleeping well, no respiratory c/o. no abdominal pain or nausea. has not had a bm but does not feel constipated and is passing flatus Exam Const General: cooperative, comfortable, no acute distress and well developed Nutritional Appearance: average body habitus Orientation: alert, awake and oriented x3 HENIN Head: normal to inspection, normocephalic and atraumatic Mouth: moist mucous membranes abnormal (slightly dry, no exudate) Chest Chest: normal inspection of the chest Resp Effort & Inspection: normal respiratory effort Auscultation: diminished lung sounds bilaterally (bases), no rhonchi and no wheezes Cardio Rate: regular rate Rhythm: regular rhythm GI Inspection: normal to inspection Palpation: soft Auscultation: normal bowel sounds Skin Lesions: lesion noted (bite sánchez right hand healing, no surrounding erythema) Rashes: rashes noted (left middle finger swollen and slightly erythematous,) Neuro General: patient alert, patient awake and patient oriented x3 Cranial Nerves: CN's II-XI intact bilaterally Cognition: normal cognition Speech: speech normal Extrem General: full ROM Right upper extremity: edema (trace to hand) and hand (bite sánchez healing) Details: swelling; no ecchymosis Left upper extremity: edema (trace to hand, greatest to left middle finger) and hand Details: tenderness, abnormal ROM of finger Details: pain with active ROM, swelling and puncture wound Objective Last Vital Signs Temp 36.9 C 03/11/21 11:20 Pulse 88 03/11/21 11:20 Resp 19 03/11/21 11:20 BP 113/75 03/11/21 11:20 Pulse Ox 95 03/11/21 11:20 Laboratory Results - last 24 hr 03/10/21 03/11/21 03/11/21 10:40 06:15 06:15 WBC 14.52 H RBC 4.17 Hgb 11.9 Hct 35.9 L MCV 86.1 MCH 28.5 MCHC 33.1 RDW 13.1 Plt Count 294 MPV 9.8 Immature Gran % 0.4 Neutrophils % 82.2 Lymphocytes % 10.5 Monocytes % 5.9 Eosinophils % 0.8 Basophils % 0.2 Nucleated RBC % 0 Absolute Neutrophils 11.94 H Absolute Lymphocytes 1.52 Absolute Monocytes 0.86 H Absolute Eosinophils 0.12 Absolute Basophils 0.03 Sodium 139 Potassium 2.8 L* Chloride 101 Carbon Dioxide 27.6 Anion Gap 10.4 BUN 8 Creatinine 1.0 Estimated GFR/1.73 m2 56.37 Glucose 141 H Calcium 8.5 Magnesium 1.7 L C-Reactive Protein 6.47 H SARS-CoV-2 (PCR) Negative
[2021-03-11] MEDS: POTASSIUM CHLORIDE 20 MEQ/100 ML BAG 40 MEQ IVPB (12:17)
--- NOTE | 2021-03-11 14:38 | CHAPLAIN ---
Tita's hands were injured when she intervened with her cat and her daughter's dog. The cat had recently had kittens and was protecting the kittens. Tita's hand became infected. She said she didn't realize the extend of the injuries possible from a cat and she feels embarrassed. She's been checking in with her daughter in town. I will continue to visit.
[2021-03-11 15:30] VITALS: BP 144/77; PULSE 86; RESP 16; TEMP 37.9; O2SAT 97
[2021-03-11] MEDS: diphenhydrAMINE 25 MG CAP PO (22:10)
[2021-03-12] MEDS: PIPERACILLIN/TAZO 4.5 GM in Normal Saline 100 ML IVPB ×3 (01:36→18:27)
[2021-03-12] MEDS: Ketorolac 15 MG/ML VIAL IVP ×4 (01:36→18:27)
[2021-03-12] MEDS: Normal Saline Flush 10 ML SYR IVP ×5 (01:36→18:28)
[2021-03-12 01:57] VITALS: BP 167/87; PULSE 83; RESP 14; TEMP 37; O2SAT 92
[2021-03-12 07:47] LABS: Abs Immature Grans 0.07 10^3/uL (0.0-0.06); Absolute Basophil Count 0.03 10^3/uL (0.0-0.2); Absolute Lymphocyte Count 1.48 10^3/uL (1.2-3.4); Absolute Monocyte Count 0.68 10^3/uL (0.1-0.8); Basophils % 0.3; Eosinophils % 3.1; HCT 35.5 % (36.0-46.0); HGB 11.6 g/dL (11.2-15.7); Immature Grans % 0.7; Lymphocytes % 15.4; MCH 28.4 pg (27.0-33.0); MCHC 32.7 % (32.0-36.0); MCV 86.8 fL (80-95); MPV 10.2 fL (8.0-11.0); Monocytes % 7.1; Neutrophils % 73.4; Nucleated RBC 0 %; Platelet Count 288 10^3/uL (130-400); RBC 4.09 10^6/uL (3.93-5.22); RDW 13.3 % (11.7-14.6); RDW-SD 41.8 fL; WBC 9.58 10^3/uL (4.4-10.8)
[2021-03-12 07:49] LABS: Anion Gap 9.6 mmol/L (3-11); BUN 8 mg/dL (7-18); C-Reactive Protein 6.24 mg/dL (0.0-0.3); CO2 26.4 mmol/L (21.0-32.0); Calcium 8.7 mg/dL (8.5-10.1); Chloride 104 mmol/L (98-107); Estimated GFR 56.37 (mL/min/1.73m2); Glucose 118 mg/dL (74-106); Magnesium 1.8 mg/dL (1.8-2.4); Potassium 3.4 mmol/L (3.5-5.1); Sodium 140 mmol/L (136-145)
[2021-03-12 07:56] LABS: Absolute Neutrophil Count 7.03 10^3/uL (1.2-6.7)
[2021-03-12 08:06] VITALS: BP 153/78; PULSE 89; RESP 18; TEMP 37.1; O2SAT 95
[2021-03-12 08:29] LABS: Hemoglobin A1C 6.7 % (<5.7)
[2021-03-12] MEDS: Aspirin E.C. 81 MG TABEC PO (08:33)
[2021-03-12] MEDS: buPROPion-XL 150 MG TABCR PO (08:33)
[2021-03-12] MEDS: HYDROcodone 5/Acetaminophen 325 TAB PO (08:33)
[2021-03-12] MEDS: Atorvastatin 40 MG TAB PO (08:33)
[2021-03-12] MEDS: Acetaminophen 325 MG TAB 650 MG PO ×2 (08:33→15:35)
[2021-03-12] MEDS: Losartan 50 MG TAB 100 MG PO (08:33)
[2021-03-12] MEDS: Multivitamin TAB 1 TAB PO (08:33)
[2021-03-12] MEDS: amLODIPine 10 MG TAB PO (08:33)
[2021-03-12] MEDS: Polyethylene Glycol 3350 17 GM PACKET PO (08:34)
--- NOTE | 2021-03-12 09:01 | PDOC.CMPRO ---
- If Service Date Differs Date of service: 03/12/21 Time of Service: 09:01 Care Management Progress Note S/O:Odette was sitting up in bed when CM met with her. She was pleasant and agreeable to conversation. Odette informed CM that she is a bit bored; she is not used to doing nothing. CM offered items from the activity cart such as coloring materials or puzzle books but Odetet declined. CM did provide her with a copy of the [place] AD forms. Odette had requested the forms and CM explained their purpose and offered to assist with their completion. Odette decline to work on them at this time but stated that she would review the documents later. A: Odette is a 60 year old woman admitted on 03/10/21 with cellulitis P:Odette will likely be discharged home with no new services. She will follow up with her PCP and Orthopedic sugeon and transport with family. CM will continue to support Odette and her discharge planning needs.
--- NOTE | 2021-03-12 09:56 | W.PM.DS.N ---
Date of service: 03/12/21 Time of Service: 09:56 DS: Diagnosis Discharge Diagnosis (1) Hypokalemia: Status: Acute (2) Cat bite of left hand: Status: Acute (3) Cat bite of right hand: Status: Acute (4) Hypertension: Status: Chronic (5) COPD, mild: Status: Chronic Discharge Plan Disposition Patient Disposition: [facility] Condition: Stable Discharge Details Reason For Visit: SEPSIS DUE TO CELLULITIS AND ABSCESS OF 3RD LUE Admit Date/Time: 03/10/21 10:16 Admit Provider: Carlene Real Attending Provider: Carlene Real Primary Care Provider: Lesley Henriquez V Home Meds and New Rx's Prescriptions: No Action amlodipine 10 mg tablet 10 mg PO DAILY RF: 0 multivitamin capsule 1 cap PO DAILY RF: 0 atorvastatin 40 mg tablet 40 mg PO DAILY RF: 0 bupropion HCl 150 mg tablet extended release 24 hr 150 mg PO QAM RF: 0 aspirin 81 mg tablet,delayed release (DR/EC) 81 mg PO DAILY RF: 0 hydrochlorothiazide 25 mg tablet 25 mg PO DAILY RF: 0 diphenhydramine HCl [Benadryl] 25 mg capsule 25 mg PO QHS RF: 0 potassium chloride 10 mEq capsule, extended release See Rx Instructions .ROUTE .COMPLEX RF: 0 losartan 100 mg tablet 100 mg PO DAILY RF: 0 amoxicillin-pot clavulanate [Augmentin] 875-125 mg tablet 1 tab PO BID Qty: 18 RF: 0 DS: Data Vitals/I&O Vitals and I&O: Vital Signs Temperature 37.1 C 03/12/21 08:06 Temperature Source Tympanic 03/12/21 08:06 Pulse 89 03/12/21 08:06 Pulse Rhythm Regular 03/12/21 07:23 Respiratory Rate 18 03/12/21 08:06 Respiratory Effort 03/12/21 07:23 Respiratory Depth Normal 03/12/21 07:23 Respiratory Pattern Normal 03/12/21 07:23 Blood Pressure 153/78 H 03/12/21 08:06 Blood Pressure Position Sitting 03/10/21 09:29 Pulse Oximetry 95 03/12/21 08:06 Oxygen Delivery Method Room Air 03/12/21 08:06 Oxygen Flow Rate 0 03/12/21 08:06 Pain Level 7 03/12/21 08:33 Comment 03/12/21 01:57 Intake & Output 03/11/21 03/11/21 03/12/21 11:59 23:59 11:59 Intake Total 1680 / 2380 700 / 2380 350 / 350 Output Total 700 / 700 Balance 980 / 1680 700 / 1680 350 / 350 Weight 87.7 kg 87.7 kg Intake: IV 1200 / 1660 460 / 1660 110 / 110 Oral 480 / 720 240 / 720 240 / 240 Output: Urine 700 / 700 Other: Urine Color Yellow Yellow Urine Appearance Clear Clear Clear Urine Odor Strong Comment Up to toilet to void Patient reports normal voiding independently in toilet. Voiding Methods Toilet Toilet Data Completed and Pending Labs on day of discharge: Labs from last 24 hours 03/12/21 03/12/21 03/12/21 06:40 06:40 06:25 WBC 9.58 D RBC 4.09 Hgb 11.6 Hct 35.5 L MCV 86.8 MCH 28.4 MCHC 32.7 RDW 13.3 Plt Count 288 MPV 10.2 Immature Gran % 0.7 Neutrophils % 73.4 Lymphocytes % 15.4 Monocytes % 7.1 Eosinophils % 3.1 Basophils % 0.3 Nucleated RBC % 0 Absolute Neutrophils 7.03 H Absolute Lymphocytes 1.48 Absolute Monocytes 0.68 Absolute Eosinophils 0.30 Absolute Basophils 0.03 Sodium 140 Potassium 3.4 L Chloride 104 Carbon Dioxide 26.4 Anion Gap 9.6 BUN 8 Creatinine 1.0 Estimated GFR/1.73 m2 56.37 Glucose 118 H Hemoglobin A1c 6.7 H Calcium 8.7 Magnesium 1.8 C-Reactive Protein 6.24 H 03/11/21 08:22 Blood Blood Culture - Pending 03/11/21 08:04 Blood Blood Culture - Pending Preliminary micro results at discharge 03/11/21 08:22 Blood Culture - Pending Blood 03/11/21 08:04 Blood Culture - Pending Blood [facility] Medical History (Updated 03/11/21 @ 11:59 by Vita Lopez NP) Back pain with radiculopathy Bilateral calf pain COPD, mild Depression Hemorrhoids Hyperlipidemia Hypertension Hypokalemia Low back pain Pap smear vag w ASC-US Seasonal affective disorder Situational anxiety Tobacco use disorder Surgical History (Updated 03/10/21 @ 13:14 by Carlene Real MD) History of back surgery Family History (Updated 03/10/21 @ 13:18 by Carlene Real MD) Mother Stroke Diabetes Hypertension Father Stroke Hypertension Cancer prostate cancer Sister Cancer tongue/throat cancer (smoker) Social History (Updated 03/10/21 @ 13:19 by Carlene Real MD) Smoking/Tobacco Use Status: Current every day Tobacco Type: cigarettes Smoking packs per day: 0.5 Smoking cigarettes per day: 10.0 Years smoked: 35 Smoking pack-years: 17.50 Tobacco: How many years used: 35 Counseling given: provider counseling and support medications Smoking risk assessment performed?: Yes Alcohol Intake: current Alcohol Intake frequency: 0-2 drinks per day Drug use: Never Substance use type: does not use Current gender identity: female Do you feel safe at home: Yes Do you feel safe in your relationship?: Yes
--- NOTE | 2021-03-12 10:16 | W.ORTHOCONSU ---
Date of service: 03/10/21 Time of Service: 10:16 History of Present Illness History of Present Illness Chief Complaint: Painful, swollen LMF Narrative: Sustained catbite to LMF 2 days ago. Was housecat. Took 3 doses of Augmentin and was getting worse. Bite sánchez over dorsum of DIP joint. Very painful to move the finger. Says she had chills at home. Couldn't sleep due to the pain. Was seen in the ER and admitted for IV antibiotics and possible I&D of finger. I was consulted to evaluate for possible I&D. Consults Consult date: 03/10/21 Requesting physician: Carlene Real Assessment and Plan Assessment and plan (1) Cat bite of left hand: Status: Acute Assessment and plan: Assessment: Catbite to LMF with subsequent cellulitis, despite being on Augmentin. I don't see any good evidence on exam for flexor tenosynovitis which would require I&D of the finger. I think she will respond to IV cephlasporin. Was probably Staph which Augmentin doesn't cover well. Plan: IV cephtriaxone. Ice/heat to finger, whichever feels best. Adequate pain meds. Reassess tomorrow. May need I&D if she worsens. [facility] Medical History (Updated 03/11/21 @ 11:59 by Vita Lopez NP) Back pain with radiculopathy Bilateral calf pain COPD, mild Depression Hemorrhoids Hyperlipidemia Hypertension Hypokalemia Low back pain Pap smear vag w ASC-US Seasonal affective disorder Situational anxiety Tobacco use disorder Surgical History (Updated 03/10/21 @ 13:14 by Carlene Real MD) History of back surgery Family History (Updated 03/10/21 @ 13:18 by Carlene Real MD) Mother Stroke Diabetes Hypertension Father Stroke Hypertension Cancer prostate cancer Sister Cancer tongue/throat cancer (smoker) Social History (Updated 03/10/21 @ 13:19 by Carlene Real MD) Smoking/Tobacco Use Status: Current every day Tobacco Type: cigarettes Smoking packs per day: 0.5 Smoking cigarettes per day: 10.0 Years smoked: 35 Smoking pack-years: 17.50 Tobacco: How many years used: 35 Counseling given: provider counseling and support medications Smoking risk assessment performed?: Yes Alcohol Intake: current Alcohol Intake frequency: 0-2 drinks per day Drug use: Never Substance use type: does not use Current gender identity: female Do you feel safe at home: Yes Do you feel safe in your relationship?: Yes Exam Narrative Exam Narrative: LMF swollen from tip to proximal flexion crease. Puncture wounds from catbite seen over dorsum of DIP joint. Finger numb due to median nerve block done by anesthesia. Good capillary refill of fingertip. Can actively extend finger almost fully. No obvious abcess or fluid collection. Not tender over flexor sheath. 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 Temp 38.1. WBC 14,000+ Results Last Vital Signs Temp 37.1 C 03/12/21 08:06 Pulse 89 03/12/21 08:06 Resp 18 03/12/21 08:06 BP 153/78 H 03/12/21 08:06 Pulse Ox 95 03/12/21 08:06 Labs Result diagrams: 03/12/21 06:40 03/12/21 06:25 Labs: Laboratory Results - last 24 hr 03/12/21 03/12/21 03/12/21 06:25 06:40 06:40 WBC 9.58 D RBC 4.09 Hgb 11.6 Hct 35.5 L MCV 86.8 MCH 28.4 MCHC 32.7 RDW 13.3 Plt Count 288 MPV 10.2 Immature Gran % 0.7 Neutrophils % 73.4 Lymphocytes % 15.4 Monocytes % 7.1 Eosinophils % 3.1 Basophils % 0.3 Nucleated RBC % 0 Absolute Neutrophils 7.03 H Absolute Lymphocytes 1.48 Absolute Monocytes 0.68 Absolute Eosinophils 0.30 Absolute Basophils 0.03 Sodium 140 Potassium 3.4 L Chloride 104 Carbon Dioxide 26.4 Anion Gap 9.6 BUN 8 Creatinine 1.0 Estimated GFR/1.73 m2 56.37 Glucose 118 H Hemoglobin A1c 6.7 H Calcium 8.7 Magnesium 1.8 C-Reactive Protein 6.24 H
--- NOTE | 2021-03-12 10:36 | W.PM.PROGNOT ---
Date of Service Date of service: 03/11/21 Time of Service: 10:36 Assessment and Plan Assessment and plan (1) Cat bite of left hand: Status: Acute Assessment and plan: Assessment: Improved after 24 hours of IV antibiotics. I don't see anything to I&D. Plan: Continue present treatment. Subjective Subjective Patient reports: feels better, pain is less and afebrile Interval history since last seen: Pain is tolerable, although still sore LMF Exam Narrative Exam Narrative: Afebrile today. WBC still elevated at 14,000+ LMF softer, less swelling. Mostly sore to palpation over dorsum of DIP joint. Can flex and extend actively but still limited due to pain. No obvious abscess. Objective Last Vital Signs Temp 37.1 C 03/12/21 08:06 Pulse 89 03/12/21 08:06 Resp 18 03/12/21 08:06 BP 153/78 H 03/12/21 08:06 Pulse Ox 95 03/12/21 08:06 Laboratory Results - last 24 hr 03/12/21 03/12/21 03/12/21 06:25 06:40 06:40 WBC 9.58 D RBC 4.09 Hgb 11.6 Hct 35.5 L MCV 86.8 MCH 28.4 MCHC 32.7 RDW 13.3 Plt Count 288 MPV 10.2 Immature Gran % 0.7 Neutrophils % 73.4 Lymphocytes % 15.4 Monocytes % 7.1 Eosinophils % 3.1 Basophils % 0.3 Nucleated RBC % 0 Absolute Neutrophils 7.03 H Absolute Lymphocytes 1.48 Absolute Monocytes 0.68 Absolute Eosinophils 0.30 Absolute Basophils 0.03 Sodium 140 Potassium 3.4 L Chloride 104 Carbon Dioxide 26.4 Anion Gap 9.6 BUN 8 Creatinine 1.0 Estimated GFR/1.73 m2 56.37 Glucose 118 H Hemoglobin A1c 6.7 H Calcium 8.7 Magnesium 1.8 C-Reactive Protein 6.24 H
--- NOTE | 2021-03-12 10:43 | W.PM.PROGNOT ---
Date of Service Date of service: 03/12/21 Time of Service: 10:43 Assessment and Plan Assessment and plan (1) Cat bite of left hand: Status: Acute Assessment and plan: Assessment: Infection LMF due to catbite resolving with IV ceftriaxone. Draining spontaneously, therfore will not require I&D. Plan: Continue IV ceftriaxone for another 24 hours, then D/C home on 10 day course of keflex.(500 mg Q6H). Follow up with or in ONE WEEK. Subjective Subjective Patient reports: feels better and pain is less Exam Narrative Exam Narrative: Afebrile. WBC dropped to 9,580. Draining a drop of pus from catbite puncture wound over dorsum of DIP joint LMF. I can't express any more pus by squeezing. Active finger extension is full. Active flexion is improved of MCP and PIP joints. DIP flexion 15 degrees. Overall swelling of finger decreased. Objective Last Vital Signs Temp 37.1 C 03/12/21 08:06 Pulse 89 03/12/21 08:06 Resp 18 03/12/21 08:06 BP 153/78 H 03/12/21 08:06 Pulse Ox 95 03/12/21 08:06 Laboratory Results - last 24 hr 03/12/21 03/12/21 03/12/21 06:25 06:40 06:40 WBC 9.58 D RBC 4.09 Hgb 11.6 Hct 35.5 L MCV 86.8 MCH 28.4 MCHC 32.7 RDW 13.3 Plt Count 288 MPV 10.2 Immature Gran % 0.7 Neutrophils % 73.4 Lymphocytes % 15.4 Monocytes % 7.1 Eosinophils % 3.1 Basophils % 0.3 Nucleated RBC % 0 Absolute Neutrophils 7.03 H Absolute Lymphocytes 1.48 Absolute Monocytes 0.68 Absolute Eosinophils 0.30 Absolute Basophils 0.03 Sodium 140 Potassium 3.4 L Chloride 104 Carbon Dioxide 26.4 Anion Gap 9.6 BUN 8 Creatinine 1.0 Estimated GFR/1.73 m2 56.37 Glucose 118 H Hemoglobin A1c 6.7 H Calcium 8.7 Magnesium 1.8 C-Reactive Protein 6.24 H
--- NOTE | 2021-03-12 11:14 | W.PM.PROGNOT ---
Date of Service Date of service: 03/12/21 Time of Service: 11:16 Assessment and Plan Assessment and plan (1) Diabetes mellitus type 2 in obese: Status: Acute Assessment and plan: new diagnosis A1C 6.7 diabetic education. anticipate elevation in BS while active infection, will check blood sugars ac and provide ss coverage if needed. (2) Hypokalemia: Status: Acute Assessment and plan: continue to replete and follow. mag 1.7, will replete as well. (3) Cat bite of left hand: Status: Acute Assessment and plan: followed by orthopedics, blood cultures negative to date continue zosyn day 3 continue probiotic elevation as much as possible lovenox on hold for possible surgical washout following inflammatory markers which seem to be improving MRI pending for today wound culture attempted from purulent drainage, ID&sensitivities pending. (4) Cat bite of right hand: Status: Acute Assessment and plan: improving with no signs of ongoing untreated infection. continue to monitor (5) Hypertension: Status: Chronic Assessment and plan: blood pressure stable (6) COPD, mild: Status: Chronic Assessment and plan: add incentive spirometry continue nicotine replacement while hospitalized smoking cessation discussed. (7) DVT prophylaxis: Status: Acute Assessment and plan: teds, patient is ambulatory. (8) Discharge planning issues: Status: Acute Assessment and plan: anticipate discharge to home 1-2 days, will downstep to augmentin tomorrow to trial oral prior to discharge discussed with Dr Real Subjective Subjective Patient reports: no new complaints, still having pain, tolerating liquids well, tolerating a regular diet, voiding w/o difficulty, no bowel movement and afebrile Interval history since last seen: no fevers, erythema and swelling improving slightly. proximal wound on left middle finger now draining some purulent drainage. denies nausea, vomiting or constipation, states she is passing flatus. Exam Const General: cooperative, comfortable, no acute distress and well developed Nutritional Appearance: average body habitus Orientation: alert, awake and oriented x3 HENMT Head: normal to inspection, normocephalic and atraumatic Mouth: moist mucous membranes abnormal (slightly dry, no exudate) Chest Chest: normal inspection of the chest Resp Effort & Inspection: normal respiratory effort Auscultation: diminished lung sounds bilaterally (bases), no rhonchi and no wheezes Cardio Rate: regular rate Rhythm: regular rhythm GI Inspection: normal to inspection Palpation: soft Auscultation: normal bowel sounds Skin Lesions: lesion noted (bite sánchez right hand healing, no surrounding erythema) Rashes: rashes noted (left middle finger swollen and slightly erythematous draining from proximal) left 3rd finger other (scabbed over wounds x2, dorsum of hand, one under nailbed, one below PIP draining purulent drainage.) Neuro General: patient alert, patient awake and patient oriented x3 Cranial Nerves: CN's II-XI intact bilaterally Cognition: normal cognition Speech: speech normal Extrem General: full ROM Right upper extremity: edema (trace to hand) and hand (bite sánchez healing) Details: swelling; no ecchymosis Left upper extremity: edema (trace to hand, greatest to left middle finger) and hand Details: tenderness, abnormal ROM of finger Details: pain with active ROM, swelling and puncture wound Objective Last Vital Signs Temp 37.1 C 03/12/21 08:06 Pulse 89 03/12/21 08:06 Resp 18 03/12/21 08:06 BP 153/78 H 03/12/21 08:06 Pulse Ox 95 03/12/21 08:06 Laboratory Results - last 24 hr 03/12/21 03/12/21 03/12/21 06:25 06:40 06:40 WBC 9.58 D RBC 4.09 Hgb 11.6 Hct 35.5 L MCV 86.8 MCH 28.4 MCHC 32.7 RDW 13.3 Plt Count 288 MPV 10.2 Immature Gran % 0.7 Neutrophils % 73.4 Lymphocytes % 15.4 Monocytes % 7.1 Eosinophils % 3.1 Basophils % 0.3 Nucleated RBC % 0 Absolute Neutrophils 7.03 H Absolute Lymphocytes 1.48 Absolute Monocytes 0.68 Absolute Eosinophils 0.30 Absolute Basophils 0.03 Sodium 140 Potassium 3.4 L Chloride 104 Carbon Dioxide 26.4 Anion Gap 9.6 BUN 8 Creatinine 1.0 Estimated GFR/1.73 m2 56.37 Glucose 118 H Hemoglobin A1c 6.7 H Calcium 8.7 Magnesium 1.8 C-Reactive Protein 6.24 H
[2021-03-12] MEDS: LORazepam 1 MG TAB PO (11:16)
[2021-03-12] MEDS: Gadoterate meglumine 20 ML VIAL 18 ML IVP (12:48)
--- NOTE | 2021-03-12 12:50 | DI.MRI_ITS ---
Exam(s) MR UPPER EXTREMITY LT W EXAM: MR UPPER EXTREMITY LT W CLINICAL HISTORY: left 3rd digit swelling, cat bite. TECHNIQUE: Multiplanar multisequence MRI was performed. COMPARISON: CR,XR XR FINGER LT MIDDLE from 03/10/2021 FINDINGS: MR examination the fingers was performed utilizing multi planer pre and post contrast imaging. Initial T1 weighted imaging shows question decreased signal at the base of the distal phalanx and hea d of the middle phalanx of the middle finger, corresponding to the reported region prior CAT bite. T he T2 weighted fat sat pre contrast images show abnormal signal in the distal aspect to mid shaft of the middle phalanx and the proximal aspect to mid shaft of the distal phalanx. There is no significa nt enhancement identified in these regions on post contrast imaging. The tendons and ligaments appear intact throughout. There is degenerative spurring of the margins of the bones at the DIP joint of the middle finger but otherwise no bony deformity. There is nonspecif ic mild soft tissue edema of the distal aspect of the middle finger. IMPRESSION: Signal abnormality in distal aspect of middle phalanx and proximal aspect of distal phalanx of the mi ddle finger raise the possibility of osteomyelitis. Please see above discussion. DATA REPOSITORY:
[2021-03-12] MEDS: Potassium Chloride 20 MEQ TABCR 40 MEQ PO (15:16)
[2021-03-12 15:54] VITALS: BP 135/70; PULSE 82; RESP 18; TEMP 36.7; O2SAT 97
[2021-03-12] MEDS: diphenhydrAMINE 25 MG CAP PO (22:09)
[2021-03-13 00:03] VITALS: BP 157/83; PULSE 80; RESP 18; TEMP 36.5; O2SAT 96
[2021-03-13] MEDS: Ketorolac 15 MG/ML VIAL IVP ×4 (00:05→17:51)
[2021-03-13] MEDS: Normal Saline Flush 10 ML SYR IVP ×5 (00:06→22:20)
[2021-03-13] MEDS: PIPERACILLIN/TAZO 4.5 GM in Normal Saline 100 ML IVPB ×3 (02:27→17:47)
[2021-03-13 07:44] VITALS: BP 162/84; PULSE 75; RESP 17; TEMP 36.8; O2SAT 95
[2021-03-13] MEDS: Nicotine 14 MG/24 HR PATCH TD (07:49)
[2021-03-13] MEDS: Acetaminophen 325 MG TAB 650 MG PO ×2 (07:49→21:28)
[2021-03-13] MEDS: Polyethylene Glycol 3350 17 GM PACKET PO (07:49)
[2021-03-13] MEDS: amLODIPine 10 MG TAB PO (07:49)
[2021-03-13] MEDS: buPROPion-XL 150 MG TABCR PO (07:50)
[2021-03-13] MEDS: Atorvastatin 40 MG TAB PO (07:50)
[2021-03-13] MEDS: Multivitamin TAB 1 TAB PO (07:50)
[2021-03-13] MEDS: Losartan 50 MG TAB 100 MG PO (07:50)
[2021-03-13] MEDS: Aspirin E.C. 81 MG TABEC PO (07:50)
--- NOTE | 2021-03-13 10:47 | W.PM.PROGNOT ---
Date of Service Date of service: 03/13/21 Time of Service: 10:47 Assessment and Plan Assessment and plan (1) Diabetes mellitus type 2 in obese: Status: Acute Assessment and plan: new diagnosis A1C 6.7 diabetic education. anticipate elevation in BS while active infection, will check blood sugars ac and provide ss coverage if needed. blood sugars have been well controlled. (2) Hypokalemia: Status: Acute Assessment and plan: continue to replete and follow. mag 1.7, will replete as well. (3) Cat bite of left hand: Status: Acute Assessment and plan: followed by orthopedics, blood cultures negative to date continue zosyn day 4 continue probiotic elevation as much as possible lovenox on hold for possible surgical washout following inflammatory markers which seem to be improving MRI wound culture attempted from purulent drainage, ID&sensitivities pending. (4) Cat bite of right hand: Status: Acute Assessment and plan: improving with no signs of ongoing untreated infection. continue to monitor (5) Hypertension: Status: Chronic Assessment and plan: blood pressure stable (6) COPD, mild: Status: Chronic Assessment and plan: add incentive spirometry continue nicotine replacement while hospitalized smoking cessation discussed. (7) DVT prophylaxis: Status: Acute Assessment and plan: teds, patient is ambulatory. (8) Discharge planning issues: Status: Acute Assessment and plan: anticipate discharge to home 1-2 days, will downstep to augmentin tomorrow to trial oral prior to discharge discussed with Dr Real Subjective Subjective Patient reports: no new complaints, feels better, tolerating liquids well, tolerating a regular diet, voiding w/o difficulty and afebrile Exam Const General: cooperative, comfortable, no acute distress and well developed Nutritional Appearance: average body habitus Orientation: alert, awake and oriented x3 HENMT Head: normal to inspection, normocephalic and atraumatic Mouth: moist mucous membranes abnormal (slightly dry, no exudate) Chest Chest: normal inspection of the chest Resp Effort & Inspection: normal respiratory effort Auscultation: diminished lung sounds bilaterally (bases), no rhonchi and no wheezes Cardio Rate: regular rate Rhythm: regular rhythm GI Inspection: normal to inspection Palpation: soft Auscultation: normal bowel sounds Skin Lesions: lesion noted (bite sánchez right hand healing, no surrounding erythema) Rashes: rashes noted (left middle finger swollen and slightly erythematous draining from proximal) Neuro General: patient alert, patient awake and patient oriented x3 Cranial Nerves: CN's II-XI intact bilaterally Cognition: normal cognition Speech: speech normal Extrem General: full ROM Right upper extremity: edema (trace to hand) and hand (bite sánchez healing) Details: swelling; no ecchymosis Left upper extremity: edema (trace to hand, greatest to left middle finger) and hand Details: tenderness, abnormal ROM of finger Details: pain with active ROM, swelling and puncture wound Objective Last Vital Signs Temp 36.8 C 03/13/21 07:44 Pulse 75 03/13/21 07:44 Resp 17 03/13/21 07:44 BP 162/84 H 03/13/21 07:44 Pulse Ox 95 03/13/21 07:44
--- NOTE | 2021-03-13 11:30 | PDOC.CMPRO ---
- If Service Date Differs Date of service: 03/13/21 Time of Service: 11:30 Care Management Progress Note S/O: Odette was sitting up in bed texting on her phone when CM met with her. She showed her finger to CM, commenting that it did not look much better to her. She is still on IV antibiotics but the pain and swelling and erythema remain, she stated. She informed CM that she had hoped to be discharged by now but would need to stay at least another day. An MRI done this afternoon revealed the possibility of osteomyelitis. Since Odette did not mention this it is unlikely that the provider has shared the information with her as yet. Odette talked at length about her job with the [employer] and some of the rules and practices. She seems to enjoy her work and the people she works with. 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 A: Odette is a 60 year old woman admitted on 03/10/21 with cellulitis P:Odette will likely be discharged home with no new services. She will follow up with her PCP and Orthopedic sugeon and transport with family. CM will continue to support Odette and her discharge planning needs.
--- NOTE | 2021-03-13 11:41 | NUR.NOTE ---
Nursing Note: 03/13/21 11:41 Vita Lopez, CRISTOFER, came to round on patient and found IV not connected to patient at approximately 11:20. Pip/Reginald 4.5 gm 4hr 10:00 dose was running. No puddles or wetness on bed or floor or surrounding area were noted. Patient reports she got up to bathroom and did not take IV pole with her. It's unclear to this RN how patient became disconnected from tubing. When asked by this RN, patient reports she did not unhook herself from tubing. Patient reports she does remember this RN starting the abx, including flushing IV and hooking up tubing. Vita instructed this RN to call pharmacy for a new bag and to administer new dose of 4.5 gm over 4 hours. Patient was quiet and appeared irritated throughout interaction, Vita stopped this RN in the flores to ask about patient's attitude and behavior because this was a change. This RN noted that patient has been irritable throughout this morning and has verbalized that she wants to go home and has been just sitting here for a week. This RN provided verbal education to patient about her treatment, diabetes education that is planned for patient, and why she is still hospitalized. Charge nurse Ruth Perales notified.
[2021-03-13] MEDS: hydroCHLOROthiazide 25 MG TAB PO (13:01)
[2021-03-13] MEDS: Potassium Chloride 10 MEQ CAPCR PO (13:01)
[2021-03-13 15:45] VITALS: BP 132/77; PULSE 84; RESP 17; TEMP 36.9; O2SAT 97
[2021-03-13 23:36] VITALS: BP 137/71; PULSE 63; RESP 18; TEMP 36.1; O2SAT 96
[2021-03-14] MEDS: Normal Saline Flush 10 ML SYR IVP ×2 (02:24→06:00)
[2021-03-14] MEDS: PIPERACILLIN/TAZO 4.5 GM in Normal Saline 100 ML IVPB ×2 (02:24→10:26)
[2021-03-14] MEDS: Ketorolac 15 MG/ML VIAL IVP (06:00)
[2021-03-14 07:22] LABS: Abs Immature Grans 0.03 10^3/uL (0.0-0.06); Absolute Basophil Count 0.03 10^3/uL (0.0-0.2); Absolute Eosinophil Count 0.44 10^3/uL (0.0-0.7); Absolute Lymphocyte Count 1.41 10^3/uL (1.2-3.4); Absolute Monocyte Count 0.44 10^3/uL (0.1-0.8); Absolute Neutrophil Count 5.27 10^3/uL (1.2-6.7); Basophils % 0.4; Eosinophils % 5.8; HCT 35.1 % (36.0-46.0); HGB 11.5 g/dL (11.2-15.7); Immature Grans % 0.4; Lymphocytes % 18.5; MCH 28.2 pg (27.0-33.0); MCHC 32.8 % (32.0-36.0); MPV 9.9 fL (8.0-11.0); Monocytes % 5.8; Neutrophils % 69.1; Nucleated RBC 0 %; Platelet Count 344 10^3/uL (130-400); RBC 4.08 10^6/uL (3.93-5.22); RDW 13.4 % (11.7-14.6); RDW-SD 41.8 fL; WBC 7.62 10^3/uL (4.4-10.8)
[2021-03-14 07:33] LABS: Anion Gap 10.4 mmol/L (3-11); BUN 12 mg/dL (7-18); C-Reactive Protein 2.07 mg/dL (0.0-0.3); CO2 26.6 mmol/L (21.0-32.0); Calcium 9.2 mg/dL (8.5-10.1); Chloride 104 mmol/L (98-107); Estimated GFR 56.37 (mL/min/1.73m2); Glucose 115 mg/dL (74-106); Potassium 3.6 mmol/L (3.5-5.1); Sodium 141 mmol/L (136-145)
[2021-03-14 07:51] VITALS: BP 152/78; PULSE 73; RESP 17; TEMP 36.5; O2SAT 95
[2021-03-14] MEDS: Nicotine 14 MG/24 HR PATCH TD (08:15)
[2021-03-14] MEDS: Atorvastatin 40 MG TAB PO (08:16)
[2021-03-14] MEDS: amLODIPine 10 MG TAB PO (08:16)
[2021-03-14] MEDS: Aspirin E.C. 81 MG TABEC PO (08:16)
[2021-03-14] MEDS: hydroCHLOROthiazide 25 MG TAB PO (08:16)
[2021-03-14] MEDS: Multivitamin TAB 1 TAB PO (08:17)
[2021-03-14] MEDS: buPROPion-XL 150 MG TABCR PO (08:17)
[2021-03-14] MEDS: Potassium Chloride 10 MEQ CAPCR PO (08:17)
[2021-03-14] MEDS: Losartan 50 MG TAB 100 MG PO (08:17)
[2021-03-14] MEDS: Normal Saline 500 ML 30 ML IVPB (10:26)
--- NOTE | 2021-03-14 11:12 | PDOC.CMPRO ---
Care Management Progress Note S/O: Odette continues to advocate for returning home. Per provider, she will likely return home on oral antibiotics for an extended period of time; awaiting further recommendations. CM continues to follow. A: Odette is a 60 year old woman admitted on 03/10/21 with cellulitis P: Odette will likely be discharged home with no new services. She will follow up with her PCP and Orthopedic surgeon and transport home via private vehicle with family. CM will continue to support Odette and her discharge planning needs.
--- NOTE | 2021-03-14 14:10 | CHAPLAIN ---
Roxanna was resting in bed, with a heating pad on her left hand. She has an infection after bites from her cat. The cat recently had kittens and reacted aggressively when Roxanna's daughter's dog came into the house. Roxanna is tired of being here and hopes to go home as soon as possible.
--- NOTE | 2021-03-14 14:32 | DSE_ITS ---
Date of service: 03/14/21 Time of Service: 14:33 DS: Diagnosis Discharge Diagnosis (1) Diabetes mellitus type 2 in obese: Status: Acute (2) Hypokalemia: Status: Acute (3) Cat bite of left hand: Status: Acute (4) Cat bite of right hand: Status: Acute (5) Hypertension: Status: Chronic (6) COPD, mild: Status: Chronic Discharge Plan Disposition Patient Disposition: HOME Condition: Stable Discharge Details Reason For Visit: SEPSIS DUE TO CELLULITIS AND ABSCESS OF 3RD LUE Admit Date/Time: 03/10/21 10:16 Admit Provider: Carlene Real Attending Provider: Carlene Real Primary Care Provider: Lesley Henriquez V Hospital Course Hospital Course: Ms Remy is a 60 year old female with PMHx of hypertension and hyperlipidemia as well as tobacco abuse who was bitten by her cat March 08, 2021. She was bitten on both of her hands. The cat is a strictly indoor cat and is not vaccinated against rabies but also has very low risk of exposure to rabies. The patient was evaluated in the ED the following day due to increased pain, swelling and redness to her left middle finger and initiated on oral augmentin. Since then, her right hand has gotten better, but her left hand has gotten worse, and specifically, her left 3rd digit is very painful and swollen. She was initiated on IV zosyn and admitted to the hospitalist services for further management. Orthopedics were consulted and followed along. No surgical debridement was necessary and imaging couldn't completely rule out osteomyelitis. She completed 5 days of zosyn and will be downstepped to levaquin and discharged home. she was advised to begin soaks 3-4 times times with hydrogen peroxide/saline mix and will follow up outpatient with orthopedics next week for further recommendations, including antibiotic course. hospital course included electrolyte replacement for hypokalemia and hypomagnesemia. Her HCTZ was held for a few days but reinitiated prior to dis charge. She was also found to have a hemoglobin A1C of 6.7 and was referred to diabetes education. blood sugars were diet controlled while hospitalized. She should continue to follow up with pcp regarding further diabetes management and monitoring. she is being discharged to home with no services. she was advised to notified orthopedics if symptoms worsening or return to the ED discharge discussed with Dr Real Home Meds and New Rx's Prescriptions: New levofloxacin 750 mg tablet 750 mg PO DAILY 7 Days Qty: 7 RF: 0 Bio-K plus 50 billion cell capsule,delayed release(DR/EC) 1 cap PO DAILY Qty: 30 RF: 0 Continued amlodipine 10 mg tablet 10 mg PO DAILY RF: 0 multivitamin capsule 1 cap PO DAILY RF: 0 atorvastatin 40 mg tablet 40 mg PO DAILY RF: 0 bupropion HCl 150 mg tablet extended release 24 hr 150 mg PO QAM RF: 0 aspirin 81 mg tablet,delayed release (DR/EC) 81 mg PO DAILY RF: 0 hydrochlorothiazide 25 mg tablet 25 mg PO DAILY RF: 0 diphenhydramine HCl [Benadryl] 25 mg capsule 25 mg PO QHS RF: 0 potassium chloride 10 mEq capsule, extended release See Rx Instructions .ROUTE .COMPLEX RF: 0 losartan 100 mg tablet 100 mg PO DAILY RF: 0 Discontinued amoxicillin-pot clavulanate [Augmentin] 875-125 mg tablet 1 tab PO BID Qty: 18 RF: 0 Discharge Instructions Instructions: Animal Bite (DC), Cellulitis (DC) Additional Instructions: soak finger 3-4 times daily in a 50/50 mix of saline and hydrogen peroxide for 10 minutes, gently express to drain as able. can apply dry dressing to protect, leave open to air at night. discuss diabetes management with primary care provider at outpatient follow up appointment. while hospitalized your blood sugar was controlled by diet but your hemoglobin A1C was found to be 6.7. This will need further outpatient monitoring. Stand Alone Forms: Nursing Discharge Form Referrals: Lesley Henriquez MD [Primary Care Provider] - 03/22/21 10:45 am Stan Sotelo MD [ [facility] STAFF PHYSICIAN] - 03/19/21 9:45 am () Activity:: Activity as Tolerated Equipment/Supplies:: No Equipment Needed Diet:: Carb Counting Discharge Orders Discharge Orders: Discharge Order (Routine); Ordered 03/14/21 Ordered By: Vita Lopez DS: Summary Time Spent with Patient providing and/or coordinating discharge services: Greater than 30 minutes Status at Discharge Functional status at discharge: independent ambulation Overall status at discharge: patient is not back to baseline Mental Status: mental status grossly normal Speech and Movement: speech and movement normal Mood: congruent mood Affect: normal affect Exam Const General: cooperative, comfortable, no acute distress and well developed Nutritional Appearance: average body habitus Orientation: alert, awake and oriented x3 HENMT Head: normal to inspection, normocephalic and atraumatic Mouth: moist mucous membranes abnormal (slightly dry, no exudate) Chest Chest: normal inspection of the chest Resp Effort & Inspection: normal respiratory effort Auscultation: diminished lung sounds bilaterally (bases), no rhonchi and no wheezes Cardio Rate: regular rate Rhythm: regular rhythm GI Inspection: normal to inspection Palpation: soft Auscultation: normal bowel sounds Skin Lesions: lesion noted (bite sánchez right hand healing, no surrounding erythema) Rashes: rashes noted (left middle finger swollen and slightly erythematous draining from proximal) Neuro General: patient alert, patient awake and patient oriented x3 Cranial Nerves: CN's II-XI intact bilaterally Cognition: normal cognition Speech: speech normal Extrem General: full ROM Right upper extremity: edema (trace to hand) and hand (bite sánchez healing) Details: swelling; no ecchymosis Left upper extremity: edema (trace to hand, greatest to left middle finger) and hand Details: tenderness, abnormal ROM of finger Details: pain with active ROM, swelling and puncture wound Psych Mental Status: mental status grossly normal Speech and Movement: speech and movement normal Mood: congruent mood Affect: normal affect DS: Data Vitals/I&O Vitals and I&O: Vital Signs Temperature 36.5 C 03/14/21 07:51 Temperature Source Temporal Artery Scan 03/14/21 07:51 Pulse 73 03/14/21 07:51 Pulse Rhythm Regular 03/14/21 12:36 Respiratory Rate 17 03/14/21 07:51 Respiratory Effort Non-Labored 03/14/21 12:36 Respiratory Depth Normal 03/14/21 12:36 Respiratory Pattern Normal 03/14/21 12:36 Blood Pressure 152/78 H 03/14/21 07:51 Blood Pressure Position Sitting 03/10/21 09:29 Pulse Oximetry 95 03/14/21 07:51 Oxygen Delivery Method Room Air 03/14/21 07:51 Oxygen Flow Rate 0 03/14/21 07:51 Pain Level 4 03/14/21 07:51 Comment 03/12/21 01:57 Intake & Output 03/13/21 03/14/21 03/14/21 23:59 11:59 23:59 Intake Total 1128.333 / 1505.000 590 / 830 240 / 830 Balance 1128.333 / 1505.000 590 / 830 240 / 830 Intake: IV 168.333 / 305.000 110 / 110 Oral 960 / 1200 480 / 720 240 / 720 Other: Urine Odor None Comment Patient voiding independently Patient reported that she voided this morning. Voiding Methods Toilet Data Completed and Pending Labs on day of discharge: Labs from last 24 hours 03/14/21 03/14/21 06:16 06:16 WBC 7.62 RBC 4.08 Hgb 11.5 Hct 35.1 L MCV 86.0 MCH 28.2 MCHC 32.8 RDW 13.4 Plt Count 344 MPV 9.9 Immature Gran % 0.4 Neutrophils % 69.1 Lymphocytes % 18.5 Monocytes % 5.8 Eosinophils % 5.8 Basophils % 0.4 Nucleated RBC % 0 Absolute Neutrophils 5.27 Absolute Lymphocytes 1.41 Absolute Monocytes 0.44 Absolute Eosinophils 0.44 Absolute Basophils 0.03 Sodium 141 Potassium 3.6 Chloride 104 Carbon Dioxide 26.6 Anion Gap 10.4 BUN 12 Creatinine 1.0 Estimated GFR/1.73 m2 56.37 Glucose 115 H Calcium 9.2 C-Reactive Protein 2.07 H Preliminary micro results at discharge 03/12/21 14:50 Wound Culture - Preliminary Finger - Left Third Digit 03/11/21 08:22 Blood Culture - Preliminary Blood NO GROWTH 72 HOURS 03/11/21 08:04 Blood Culture - Preliminary Blood NO GROWTH 72 HOURS [facility] Medical History (Updated 03/14/21 @ 15:07 by Stan Sotelo MD) Back pain with radiculopathy Bilateral calf pain COPD, mild Depression Hemorrhoids Hyperlipidemia Hypertension Hypokalemia Low back pain Pap smear vag w ASC-US Seasonal affective disorder Situational anxiety Tobacco use disorder Surgical History (Updated 03/10/21 @ 13:14 by Carlene Real MD) History of back surgery Family History (Updated 03/10/21 @ 13:18 by Carlene Real MD) Mother Stroke Diabetes Hypertension Father Stroke Hypertension Cancer prostate cancer Sister Cancer tongue/throat cancer (smoker) Social History (Updated 03/10/21 @ 13:19 by Carlene Real MD) Smoking/Tobacco Use Status: Current every day Tobacco Type: cigarettes Smoking packs per day: 0.5 Smoking cigarettes per day: 10.0 Years smoked: 35 Smoking pack-years: 17.50 Tobacco: How many years used: 35 Counseling given: provider counseling and support medications Smoking risk assessment performed?: Yes Alcohol Intake: current Alcohol Intake frequency: 0-2 drinks per day Drug use: Never Substance use type: does not use Current gender identity: female Do you feel safe at home: Yes Do you feel safe in your relationship?: Yes
--- NOTE | 2021-03-14 14:59 | W.ORTHOCONSU ---
Date of service: 03/14/21 Time of Service: 14:59 History of Present Illness History of Present Illness Chief Complaint: Left finger infection Narrative: 60-year-old female almost 1 week status post cat bites to bilateral hands. Inpatient admission for IV antibiotics after briefly failing oral antibiotics. Evaluated by Dr. Mcgrath earlier this week with recommendations for medical management with antibiotics. Second opinion requested by primary medical team today regarding possible irrigation and debridement at this point in time. Patient has been on IV Zosyn. Inflammatory markers have greatly improved from white count of 14.5-7.6. CRP likewise improved from 6.5-2.07. Patient's been afebrile with low levels of pain at rest. Type 2 diabetes evaluated with hemoglobin A1c 6.7. Comorbidities include hypertension, COPD, and smoking/nicotine abuse. Patient relates that she is eager to return back home. Consult Reason Left finger infection second opinion regarding surgical drainage Assessment and Plan Assessment and plan (1) Cat bite of right hand: Status: Acute Qualifiers: Encounter type: initial encounter Qualified Code(s): S61.451A - Open bite of right hand, initial encounter; W55.01XA - Bitten by cat, initial encounter (2) Cat bite of left hand with infection: Status: Acute Assessment and plan: 60-year-old female 6 days status post multiple cat bites with infection to the left hand distal aspect of the long finger. Resolving with current medical management based on improving inflammatory markers and clinical appearance. Discussed with patient and primary medical team. Okay for discharge on oral antibiotics covering cat Pasteurella as well as usual staph and strep. Recommend antibiotic with good penetration to bone for possible early osteomyelitis. Likely discharge on Levaquin. Discussed potential future need for surgical drainage should a abscess or fluid collection develop. In the meanwhile, recommend elevation and soaks of the left long finger 10 minutes in warm saline 50:50 peroxide mix then allow to dry. 2-3 times per day. Smoking cessation and tight diabetic glycemic control would likely aid in resolution of infection minimize risk of complications. Patient can follow-up with me in the office in outpatient next week. Our office will call today to set an appointment. All questions were answered. Patient agrees and understands treatment plan. Qualifiers: Encounter type: initial encounter Qualified Code(s): S61.452A - Open bite of left hand, initial encounter; L08.9 - Local infection of the skin and subcutaneous tissue, unspecified; W55.01XA - Bitten by cat, initial encounter [facility] Medical History (Updated 03/14/21 @ 15:07 by Stan Sotelo MD) Back pain with radiculopathy Bilateral calf pain COPD, mild Depression Hemorrhoids Hyperlipidemia Hypertension Hypokalemia Low back pain Pap smear vag w ASC-US Seasonal affective disorder Situational anxiety Tobacco use disorder Surgical History (Updated 03/10/21 @ 13:14 by Carlene Real MD) History of back surgery Family History (Updated 03/10/21 @ 13:18 by Carlene Real MD) Mother Stroke Diabetes Hypertension Father Stroke Hypertension Cancer prostate cancer Sister Cancer tongue/throat cancer (smoker) Social History (Updated 03/10/21 @ 13:19 by Carlene Real MD) Smoking/Tobacco Use Status: Current every day Tobacco Type: cigarettes Smoking packs per day: 0.5 Smoking cigarettes per day: 10.0 Years smoked: 35 Smoking pack-years: 17.50 Tobacco: How many years used: 35 Counseling given: provider counseling and support medications Smoking risk assessment performed?: Yes Alcohol Intake: current Alcohol Intake frequency: 0-2 drinks per day Drug use: Never Substance use type: does not use Current gender identity: female Do you feel safe at home: Yes Do you feel safe in your relationship?: Yes Exam Narrative Exam Narrative: Non-? toxic. Comfortable resting hospital bed. Right hand with multiple dorsal radial dry scab, apparently well-healing bite wounds without any significant edema, erythema, or drainage Left hand with isolated long finger moderate edema especially about dorsal aspect distal phalanx, DIPJ, and middle phalanx. Nail plate intact. Serous drainage from multiple areas of superficial skin breakdown dorsally. No purulence. No fluctuance. Isolated tenderness over the dorsal aspect of the DIPJ distal phalanx distal aspect proximal phalanx. Describes intact sensation distally radial and ulnarly with some paresthesias. Nail plate intact. No obvious fluid collection. No paronychia. No felon. No tenderness over the flexor or extensor tendons. No streaking or extension proximally from the digit. Patient able to demonstrate active flexion extension of the MCP J, PIPJ, but limited at the DIPJ due to discomfort. Tolerates gentle passive range of motion without undue discomfort within a short arc. Results Last Vital Signs Temp 97.7 F 03/14/21 07:51 Pulse 73 03/14/21 07:51 Resp 17 03/14/21 07:51 BP 152/78 H 03/14/21 07:51 Pulse Ox 95 03/14/21 07:51 Labs Result diagrams: 03/14/21 06:16 03/14/21 06:16 Labs: Laboratory Results - last 24 hr 03/14/21 03/14/21 06:16 06:16 WBC 7.62 RBC 4.08 Hgb 11.5 Hct 35.1 L MCV 86.0 MCH 28.2 MCHC 32.8 RDW 13.4 Plt Count 344 MPV 9.9 Immature Gran % 0.4 Neutrophils % 69.1 Lymphocytes % 18.5 Monocytes % 5.8 Eosinophils % 5.8 Basophils % 0.4 Nucleated RBC % 0 Absolute Neutrophils 5.27 Absolute Lymphocytes 1.41 Absolute Monocytes 0.44 Absolute Eosinophils 0.44 Absolute Basophils 0.03 Sodium 141 Potassium 3.6 Chloride 104 Carbon Dioxide 26.6 Anion Gap 10.4 BUN 12 Creatinine 1.0 Estimated GFR/1.73 m2 56.37 Glucose 115 H Calcium 9.2 C-Reactive Protein 2.07 H Imaging Imaging Studies: Left hand x-rays do not show any fracture, dislocation, retained foreign body. No subcutaneous air or gas. Left hand MRI does not show any periosteal abscess, involucrum, or sequestrum. Dorsal long finger subcutaneous edema and possible thin fluid area. Reactive proximal phalanx distal aspect edema versus early osteomyelitis. No destruction of the DIPJ.
[2021-03-14 15:20] VITALS: BP 158/85; PULSE 76; RESP 17; TEMP 36.5; O2SAT 96
[2021-03-14] MEDS: levoFLOXacin 500 MG, levoFLOXacin 250 MG 750 MG PO (15:22)
== END 2021-03-14 15:46 | disposition home or self-care (01) | DRG 603 ==
LOC: ER 10:52 → MS 11:05
PROVIDERS: Nurse Practitioner Acute Care; Admitting Provider Internal Medicine; Emergency Provider Student in an Organized Health Care Education/Training Program; PCP Family Medicine; Visit Provider Internal Medicine
DX: L03.012 Cellulitis of left finger (principal); S61.253A Open bite of left middle finger without damage to nail, initial encounter; W55.01XA Bitten by cat, initial encounter; J44.9 Chronic obstructive pulmonary disease, unspecified; I10 Essential (primary) hypertension; Z20.822 Contact with and (suspected) exposure to COVID-19; S61.451A Open bite of right hand, initial encounter; F17.210 Nicotine dependence, cigarettes, uncomplicated; E78.5 Hyperlipidemia, unspecified; F32.9 Major depressive disorder, single episode, unspecified; M54.5 Low back pain; M54.10 Radiculopathy, site unspecified; E87.6 Hypokalemia; B95.7 Other staphylococcus as the cause of diseases classified elsewhere; E66.9 Obesity, unspecified; E11.9 Type 2 diabetes mellitus without complications
CPT/HCPCS: 36410; 36415; 73219; 76942; 80048; 80053; 84145; 85652; 87040; 87635; 96365; 99285; 71045; 73140; 83036; 83735; 85025; 86140; 87070; 87205; 99223; 99233; 99239; 99284; J1885; J2270; J2543; J3480; J3490

== ENCOUNTER 2022-01-30 15:43 | Outpatient (REF) | payer BC, SELFPAY ==
--- NOTE | 2022-01-30 14:30 | PAPFT_PTH ---
PATIENT: Tita Remy LOC: [facility]#:[id number] AGE/SX: 61/F ROOM: RE01/30/[address]: Lesley Henriquez V : 1960 BED: DIS: 01/30/2022 SPEC #: [id number] RECD: 01/30/22 18:32 STATUS: JONY REQ #: [id number] IMELDA: 01/30/22 14:[address]: Lesley Henriquez V DEPT: [facility] Cytology RECD BY: Mayelin Guzman Tissues: 1 - CX/ENDOCX FOR PAP SMEARS Procedures: PAP THIN PREP/UVM Screening HPV DNA PROBE Comments: [id number]
== END 2022-01-30 15:44 | disposition home or self-care (01) ==
LOC: NCHCN 15:43
PROVIDERS: PCP Family Medicine; Visit Provider Family Medicine
DX: Z01.419 Encounter for gynecological examination (general) (routine) without abnormal findings (principal)
CPT/HCPCS: 88142; 87624

== ENCOUNTER 2023-02-05 15:53 | Outpatient (REF) | payer BC, SELFPAY ==
[2023-02-05 18:48] LABS: HCT 40.6 % (36.0-46.0); HGB 13.7 g/dL (11.2-15.7); MCH 28.7 pg (27.0-33.0); MCHC 33.7 % (32.0-36.0); MCV 85 fL (80-95); MPV 10.1 fL (8.0-11.0); Platelet Count 341 10^3/uL (130-400); RBC 4.78 10^6/uL (3.93-5.22); RDW 13.4 % (11.7-14.6); RDW-SD 41.8 fL; WBC 13.15 10^3/uL (4.4-10.8)
[2023-02-05 19:02] LABS: ALT 51 U/L (14-59); AST 27 U/L (15-37); Albumin 4.1 g/dL (3.4-5.0); Alkaline Phosphatase 89 U/L (46-116); Anion Gap 8.3 mmol/L (3-11); BUN 16 mg/dL (7-18); Bilirubin, Total 0.2 mg/dL (0.2-1.0); CO2 31.7 mmol/L (21.0-32.0); Calcium 9.7 mg/dL (8.5-10.1); Calculated LDL 96 mg/dL (<100); Chloride 99 mmol/L (98-107); Cholesterol 200 mg/dL (<200); Glucose 145 mg/dL (74-106); HDL Cholesterol 35 mg/dL (40-60); Potassium 3.5 mmol/L (3.5-5.1); Sodium 139 mmol/L (136-145); Triglyceride 349 mg/dL (<150)
[2023-02-05 19:24] LABS: Hemoglobin A1C 7.5 % (<5.7)
== END 2023-02-05 15:54 | disposition home or self-care (01) ==
LOC: NCHCN 15:53
PROVIDERS: PCP Family Medicine; Visit Provider Family Medicine
DX: Z00.00 Encounter for general adult medical examination without abnormal findings (principal); I10 Essential (primary) hypertension; R25.2 Cramp and spasm; E11.9 Type 2 diabetes mellitus without complications; M54.59 Other low back pain; Z83.3 Family history of diabetes mellitus
CPT/HCPCS: 80053; 80061; 85027; 83036

== ENCOUNTER 2024-06-02 09:50 | Outpatient (REF) | payer BC, SELFPAY ==
--- OUTSIDE RECORDS SUMMARY | 2024-06-02 09:53 | XMS_ITS | Encounter Summary ---
Author Organization [place] [address] Care Team Providers Care Office Machine Mechanic Name Role Phone Jass Dennison MD, [facility] Primary Care Provider [phone] Encounter Details Date Type Department Care Team (Late st Contact Info) Description 02/21/2019 Ancillary Procedure [place] [address] Taylor Aldana MD [address] [place] [id number] Social History Tobacco Use Types Packs/Day Years Used Date Smoking Tobacco: Never Assessed Sex and Gender Information Value Date Recorded Sex Assigned at Not on file Gender Identity Not on file Sexual Orientation Not on file documented as of this encounter Plan of Treatment Not on file documented as of this encounter Procedures Procedure Name Priority Date/Time Associated Diagnosis Comments FILM LIBRARY STORAGE ONLY MR SPINE Routine 02/21/2019 12:00 AM EDT documented in this encounter Results * Film Library- Storage Only MR Spine (02/21/2019 12:00 AM EDT) Narrative MAYO - 04/11/2019 1:23 PM EDT This exam is auto-finalizing. It's purpose is for storage only. Taylor Aldana MD IMG FILM LIBRARY OR DERABLES [place], [place] documented in this encounter Visit Diagnoses Not on filedocumented in this encounter Care Teams Office Machine Mechanic Relationship Specialty Start Date End Date Reyes Regan MD [address] [place], [place] [address] PCP - General 09/24/10 05/09/19 documented as of this encounter
--- OUTSIDE RECORDS SUMMARY | 2024-06-02 09:53 | XMS_ITS | Encounter Summary ---
Author Organization [facility] Address [address] [place] [address] Care Team Providers Care Implementation Advisor Name Role Phone Md RORY Hugo Primary Care Provider Unavaila ble Encounter Details Date Type Department Care Team (Latest Contact Info) Description 01/31/2022 Lab Requisition [facility] Pathology & Laboratory Medicine - [facility] [address] [place] [address] Lesley Henriquez MD [address] [place] [address] Encounter for gynecological examination (general) (routine) without abnormal findings Social History Tobacco Use Types Packs/Day Years Used Date Smoking Tobacco: Never Assessed Sex and Gender Information Value Date Recorded Sex Assigned at Not on file Gender Identity Not on file Sexual Orientation Not on file documented as of this encounter Plan of Treatment Not on file documented as of this encounter Procedures Procedure Name Priority Date/Time Associated Diagnosis Comments PAP TEST Today 01/30/2022 14:30 EDT Encounter for gynecological examination (general) (routine) without abnormal findings HPV DNA DETECTION WITH GENOTYPING, PCR Today 01/30/2022 14:30 EDT Encounter for gynecological examination (general) (routine) without abnormal findings documented in this encounter Results * HUMAN PAPILLOMAVIRUS (HPV) DETECTION-HIGH RISK TYPES (01/30/2022 14:30 EDT) HPV other High Risk types, PCR Negative Negative 02/05/2022 14:00 EDT [facility] Comment:No E6 or E7 mRNA is detected from HPV types 16,18,31,33,35,39,45,51,52,56,58,59,66, and 68 by lending consultant mediated amplification. Papanicolaou smear specimen (specimen) CERVIX UTERI STRUCTURE / Unknown 01/30/2022 14:30 EDT 02/04/2022 11:36 EDT Lesley Henriquez MD MICROBIOLOGY - GENER AL ORDERABLES [facility] [address] [place] [address] * PAP TEST (01/30/2022 14:30 EDT) Specimens A. Cervix and/or Endocervix , ThinPrep Imaging System with Manual Evaluation 02/05/2022 14:00 EDT [facility] Specimen Adequacy Satisfactory for Evaluation - transformation zone component present 02/05/2022 14:00 EDT [facility] General Categorization Negative for intraepithelial lesion or malignancy 02/05/2022 14:00 EDT [facility] Attestation . 02/05/2022 14:00 T [facility] at 1400 Clinical History See below 02/06/20 14:00 T [facility] HPV The result for the Human Papillomavirus (HPV) Detection-High Risk Types is Negative. No E6 or E7 mRNA is detected from HPV types 16,18,31,33,35,39 ,45,51,52,56,58,5 9,66, and 68 by lending consultant mediated amplification.Carolann ting was performed on specimen [id number] and was resulted on 02/05/2022 1353 EDT by YOANDY, LAB INSTRUMENT RESULTS IN 02/05/2022 14:00 EDT [facility] Performing Lab [facility] 02/05/2022 14:00 EDT [facility] Scanned Images 02/05/2022 14:00 T [facility] Papanicolaou smear specimen (specimen) CERVIX UTERI STRUCTURE / Unknown 01/30/2022 14:30 EDT 01/31/2022 15:53 EDT Lesley Henriquez MD PATHOLOGY ORDERABLES [facility] [address] [place] [address] documented in this encounter Visit Diagnoses Diagnosis Encounter for gynecological examination (general) (routine) without abnormal findings documented in this encounter Care Teams Implementation Advisor Relationship Specialty Start Date End Date Md Hugo MD PCP - General 11/20/10 documented as of this encounter
--- OUTSIDE RECORDS SUMMARY | 2024-06-02 09:53 | XMS_ITS | Encounter Summary ---
Author Organization [facility] Address [address] [facility] [place] [address] Care Team Providers Care Business Machine Operator Name Role Phone Lesley Henriquez MD Primary Care Provider [phone] Reason for Visit * Auth/Cert Specialty Diagnoses / Procedures Referred By Contac t Referred To Contact Diagnoses HNP L5/S1 Procedures PRO LAMINOTOMY, LUMBAR DISK, 1 INTRSP LAMINOTOMY, DECOMPRESSION, FORAMINOTOMY, LUMBAR (WRVU 13.18) Referral ID Status Reason Start Date Expiration Date Visits Re quested Visits Authorized [id number] 1 1 Encounter Details Date Type Department Care Team (Late st Contact Info) Description 05/10/2019 9:05 AM EDT - 05/10/2019 10:35 AM EDT Surgery Operating Room [facility] [address] [facility] [place] [address] Taylor Aldana MD [address] [facility] [place] [address] LAMINOTOMY, DECOMPRESSION, FORAMINOTOMY, LUMBAR (WRVU 12) Social History Tobacco Use Types Packs/Day Years Used Date Smoking Tobacco: Every Day Cigarettes Smokeless Tobacco: Never Alcohol Use Standard Drinks/Week Comments Yes 7 (1 standard drink = 0.6 oz pur e alcohol) Sex and Gender Information Value Date Recorded Sex Assigned at Not on file Gender Identity Not on file Sexual Orientation Not on file documented as of this encounter Last Filed Vital Signs Vital Sign Reading Time Taken Comments Blood Pressure 129/60 05/10/2019 10:33 AM EDT Pulse 87 05/10/2019 10:33 AM EDT Temperature 36.1 ??C (97 ??F) 05/10/2019 10:09 AM EDT Respiratory Rate 13 05/10/2019 10:33 AM EDT Oxygen Saturation 97% 05/10/2019 10:33 AM EDT Inhaled Oxygen Concentration - - Weight 86.2 kg (190 lb) 05/10/2019 7:43 AM EDT Height 165.1 cm (5' 5) 05/10/2019 7:43 AM EDT Body Mass Index 31.62 05/10/2019 7:43 AM EDT documented in this encounter Discharge Instructions * Patient Instructions* Rakesh Patel PA - 05/10/2019 8:58 AM EDT Full recovery will depend on your having a strong, positive attitude, setting small goals for improvement and working steadily to accomplish each goal. FOLLOW UP APPOINTMENTS: You will be scheduled for a follow-up appointment four to six weeks after surgery with a Physician???s Package Car Driver at the surgeon???s office. You will have a follow up appointment with the neurosurgeonin three months. If you have sutures that need to be removed, a suture removal appointment will be made for 10-14 days after surgery. MEDICATIONS: ??? Take your medicine at the time your doctor ordered. ??? Keep a list of your medicines, vitamins, and herbal supplement you take. Keep this list with you at all times. Show it to your caregiver at every visit. Keep the list up-to-date. ??? Ask your caregiver or pharmacist to write an explanation of each medicine you are taking. This should include: why you are taking it, possible side effects, best time of day to take it, what foods to take the medication with or foods to avoid, and when to stop taking it. ??? Only take chem-pfl-unqxmva or prescription medicine for pain, discomfort or fever as directed by your caregiver. ??? Consult your doctor or pharmacist with any questions. NEW MEDICATIONS AT DISCHARGE: []None []Given prescriptions in office preoperatively OR: Medication Dose/Route/ Frequency Prescription given? Reason for medication Medscape monograph discussed []Yes []No []Yes []No []Yes []No []Yes []No []Yes []No []Yes []No PAIN: ??? It is normal to have pain after your surgery; especially in the lower back. ??? This does not mean that the procedure was unsuccessful or that your recovery will be delayed. ??? Leg aching is also not uncommon. o This is primarily caused by inflammation of the previously compressed nerve. o The discomfort will gradually decrease as the nerve continues to heal. ??? You may also experience muscle spasms across your back and into your legs. ??? Medications will be given to control pain and decrease spasm intensity. ??? Moist heat and/or ice and frequent repositioning may also be helpful. DIET: ??? You may adjust your diet back to normal as your appetite returns. ??? Be sure to drink plenty of fluids, particularly water, and eat whole grain cereals, fruits and fruit juices to combat constipation that is sometimes caused by pain medications. ??? If constipation does occur, an over the counter laxative is acceptable. ??? Call your surgeon if you experience persistent nausea and vomiting. ACTIVITY: ??? Increase your activity slowly. Daily walking is the best exercise. Try to increase your distance a little each day. Go at a pace that doesn???t make you too tired or cause too much pain. ??? It is normal to tire easily for the first week or so after you return home. ??? Swimming after ten to fourteen days is encouraged, if feasible. ??? DO NOT sit for prolonged periods of time for six weeks following your surgery. o Brief periods of time, not to exceed thirty minutes are acceptable (meals or using the bathroom). o Change positions frequently to help eliminate muscle spasm and aching. o When sitting, choose a firm chair that will provide plenty of support. ??? DO NOT lift anything over five pounds. Keep in mind a gallon of milk weighs eight pounds. Do not lift anything that you cannot easily lift with one hand. ??? If you drop something on the floor, pick it up by bending at the knees to lower yourself. DO NOT bend at the waist. ACTIVITY (continued): ??? Sexual relations may be resumed during the recovery period, but positions that strain the back or cause pain should be avoided. ??? Consult your surgeon in regards to your driving status. There are no set time restrictions. Usecommon sense and do not attempt to resume driving until you feel completely comfortable to drive inan uninhibited manner. ??? It is recommended that you do not drive for the first 1-2 weeks or while taking narcotic pain relievers. ??? You may resume other physical activities including work only after consulting with your treating physician. POST ANESTHESIA/SEDATION: ??? You have received medication for sedation and comfort during your procedure. Because these havenot completely left your system, please observe the following precautions: o Plan to relax for the next several hours. o DO NOT drive or operate machinery until the day after your procedure, longer as recommended by your surgeon. o Avoid alcohol for the next 24 hours. o Do not make any important personal or business decisions today. BANDAGE/SHOWERING: ??? You will have Dermabond over the incision (typically a purple glue like substance), with inner sutures that do not need to be removed. The Dermabond will gradually fall off. ??? You may have sutures that require removal. If these are used you will be scheduled for a sutureremoval appointment within 10 to 14 days of the procedure. ??? You may shower after three to five days. ??? Do NOT scrub the incision. ??? Pat the area dry with a towel after showering. ??? Avoid soaking (baths, hot tubs, swimming, etc) until approximately two weeks after your surgery, when your wound is all the way healed. SEEK IMMEDIATE MEDICAL CARE/CALL YOUR SURGEON IF: ??? There is redness, swelling or increasing pain at the wound. SEEK IMMEDIATE MEDICAL CARE/CALL YOUR SURGEON IF (continued): ??? You notice purulent (colored, pus-like) drainage coming from the wound. ??? You notice a foul smell coming from the wound or bandage. ??? You experience urinary problems. ??? You experience any NEW weakness or numbness in your arms or legs. ??? You develop an oral temperature above 101 degrees F. ??? There is a breaking open of the wound. The edges do not stay together after the sutures or tapehas been removed. ??? There is persistent bleeding from an incision. If you have any questions, please call [facility] at [phone], during business hours of Thursday through Thursday from 8:00 a.m. until 4:00 p.m. In case of emergency during non-business hours, please call the same main number and follow the prompts to page the neurosurgeon therapist radiation. SMOKING CESSATION INFORMATION: ??? [place] QUITLINE: ??? [place] QUITLINE: ??? [email or web address] If you smoke, stop now! Smoking may impede healing. MAKE SURE YOU: ??? Understand these instructions. ??? Will seek medical care if you are feeling poor, or get worse. ??? Will call the surgeon???s office with any questions or concerns at : [phone] The above information has been presented or demonstrated. I/we have had the opportunity to ask questions. I/we fully understand the instructions given. I/we have received a copy of this form. documented in this encounter Medications at Time of Discharge Medication Sig Dispensed Refills Start Date End Date HYDROcodone-acetaminophe n (NORCO) 5-325 mg Tablet Take 2 tablets by mouth every 6 hours as needed. 20 tablet 05/10/2019 amLODIPine (NORVASC) 10 mg Tablet take 1 tablet by mouth once daily 0 03/31/2019 buPROPion (WELLBUTRIN XL) 150 mg Tablet Extended Release 24 hr take 1 tablet by mouth once daily 0 03/31/2019 cyclobenzaprine (FLEXERIL) 10 mg Tablet take 1 tablet by mouth twice a day if needed for BACK PAIN AND SPASMS 0 02/24/2019 gabapentin (NEURONTIN) 300 mg Capsule take 1 capsule by mouth three times a day 0 03/15/2019 losartan-hydrochlorothia zide (HYZAAR) 100-25 mg Tablet Take 1 tablet by mouth daily. 0 04/01/2019 documented as of this encounter H&P Notes * Rakesh Patel PA - 05/10/2019 8:50 AM EDT Patient Name: Tita Remy Patient Age: 58 y.o. Birthdate: 1960 Admit date: 05/10/2019 Attending Physician: Taylor Aldana MD The patient's history and physical exam have been reviewed and completed. There has been no interval change from that of the pre-operative history and physical exam done within the last 30 days. documented in this encounter Miscellaneous Notes * Op Note - Taylor Aldana MD - 05/10/2019 8:59 AM EDT Taylor Aldana MD 05/10/2019 [facility] Operative Note [facility] [address] [id number] Patient Name: Tita Remy : [id number] MR#: [id number] Case Date: 05/10/2019 Case Scheduled Time: 904 Surgeon: Surgeon(s) and Role: * Taylor Aldana MD - Primary Surgical assisstant: Rakesh Patel Preoperative diagnosis: HNP L5/S1 and stenosis Postoperative diagnosis: * No post-op diagnosis entered * Procedure(s) (LRB): LAMINOTOMY, DECOMPRESSION, FORAMINOTOMY, LUMBAR (WRVU 13.18) (Left) Left L5-S1 medial facetectomy and microdiscectomy Anesthesia: General endotracheal Findings: Subligamentous disc herniation with piece of endplate at the L5-S1 level on the left excellent compression was obtained. The disc space was entered. Nerve intact. Also significant lateral recess stenosis for the S1 nerve root which was decompressed generously. No CSF leak 2 cc of blood loss Complications: None Intake: Intraprocedure Crystalloid Total None Transfusion No data found. Output: Estimated Blood Loss: * No values recorded between 05/10/2019 12:00 AM and 05/10/2019 9:00 AM * Urine Output:: (no urine output recorded) Other Output: (no other output recorded) Drains: none Specimens removed during surgery: none Disposition: awakened from anesthesia, extubated and taken to the recovery room in a stable condition, having suffered no apparent untoward event. Condition: doing well without problems (Please see the Surgical Encounter Summary for any Implant and Specimen details pertinent to this patient.) Indications for the Procedure: Patient is a 58-year-old female who [place]. This resulted in a disc herniation at L5-S1 level the left side and since then she has had severe pain into the S1 distribution on the left as well as weakness and numbness. This is worsened to the point where she is unable to work and has difficulty even standing up straight. Given failure of conservative measures surgery was offered. Risks of surgery including but not excluding infection, bleeding, failure to improve, spinal fluid leak, nerve injury and recurrence were discussed in detail prior to surgery and patient wished to proceed. Description of the Procedure: Patient was taken to the operating room and underwent general endotracheal anesthesia and rotated to the prone position on the René frame. The lumbar region is prepped and draped in the usual sterile fashion and injected with local anesthetic 10 cc. Appropriate timeout is performed.Fluoroscopic guidance is used to identify the appropriate level with a spinal needle. The incision is made with a 10 blade, approx 3 cm taken down to the dorsal muscle fascia. The dorsal muscle fascia was opened onthe left side and subperiosteal dissection is taken down along the spinous processes and laminas ofL5-S1. A Poli retractor was placed. The microscope was taken into the field. The ligamentum flavum was removed with a #2 #3 Kerrison rongeur and a medial facetectomy performed. The high-speed drill was used to thin down slightly the inferior lamina of L5 and superior lamina S1. The nerve root is identified and decompressed generously. The disc space is palpated. The left S1 nerve root is thenretracted medially with a root retractor and the disc herniation was clearly identified. The subligamentous portion was removed with a hook and pituitary rongeurs and then there was a loose piece of endplate which was mobilized and removed with pituitaries as well. The disc space was entered and a small amount of discontent was removed within the disc space. A dental instrument is now easily passed along the S1 nerve root without any further compressive elements identified. Copious irrigation was used with saline containing bacitracin. The retractor was then removed, the microscope was taken out of the field. The dorsal muscle fascia was reapproximated with a 2-0 Vicryl sutures, inverted 3-0 Vicryl in the subcutaneous tissue and Dermabond was used to seal the skin. The patient was then awakened from anesthesia and taken in stable condition to the PACU having tolerated the procedure well. The director medical surgical, (Rakesh Patel, worked under my direction for the duration of the operative session. The physician's assistant adequately prepped the operative site and maintained the best possible exposure of anatomy incident to the procedure. documented in this encounter Plan of Treatment Not on file documented as of this encounter Procedures Procedure Name Priority Date/Time Associated Diagnosis Comments XR FLUORO NO RAD <1HR - OR USE Routine 05/10/2019 9:55 AM EDT LAMINOTOMY, DECOMPRESSION, FORAMINOTOMY, LUMBAR (WRVU 12) 05/10/2019 9:17 AM EDT HNP L5/S1 SCAN DOC: TELEMETRY STRIPS 05/10/2019 12:00 AM EDT documented in this encounter Results * XR Fluoro No Rad <1Hr - OR Use (05/10/2019 9:55 AM EDT) Narrative RAD - 05/10/2019 9:56 AM EDT This exam is auto-finalizing. No interpretation was done. Taylor Aldana MD IMG FLUORO GAT[place], [place] * SCAN DOC: TELEMETRY STRIPS (05/10/2019 12:00 AM EDT) Narrative 05/10/2019 12:00 AM EDT Ordered by an unspecified provider. Scanning Provider MEDIA MGR SCAN EXT O RDR/RSLT documented in this encounter Visit Diagnoses Not on filedocumented in this encounter Administered Medications Inactive Administered Medications - up to 3 most recent administrations Medication Order MAR Action Action Date Dose Rate Site bacitracin injection ONCE PRN, Starting on Thu05/10/19 at 0938, Until Thu05/10/19 at 1338, Intra-Operative (Intra-Procedure), Routine Given 05/10/2019 9:38 AM EDT 50,000 Units 19- Surgical Site BUpivacaine (PF) (MARCAINE) 0.5 % (5 mg/mL) injection ONCE PRN, Starting on Thu05/10/19 at 0939, Until Thu05/10/19 at 1338, Intra-Operative (Intra-Procedure), Routine Given 05/10/2019 9:39 AM EDT 5 mLs 19- Surgical Site famotidine (PEPCID) injection 20 mg 20 mg, Intravenous, ONCE, 1 dose, On Thu05/10/19 at 0830, Day of Surgery (Day of Procedure), Routine Given 05/10/2019 8:30 AM EDT 20 mg gelatin adsorbable (GELFOAM) sponge ONCE PRN, Starting on Thu05/10/19 at 0938, Until Thu05/10/19 at 1338, Intra-Operative (Intra-Procedure) Given 05/10/2019 9:38 AM EDT 1 each 19- Surgical Site HYDROcodone-acetamin ophen (NORCO) 5-325 mg per tablet 2 tablet 2 tablet, Oral, EVERY 4 HOURS PRN, Starting on Thu05/10/19 at 1023, Until Thu05/10/19 at 1137, Pain, For moderate to severe pain (4-10) Initial dose 5mg. If pain control not adequate in 60 minutes, give an additional 5 mg., PACU Recovery, Routine Given 05/10/2019 11:14 AM EDT 1 tablet ipratropium-albutero l (DUONEB) 0.5 mg-3 mg(2.5 mg base)/3 mL nebulizer solution 3 mL 3 mL, Nebulization, ONCE, 1 dose, On Thu05/10/19 at 1045, PACU Recovery, Routine Given 05/10/2019 10:15 AM EDT 3 mLs ipratropium-albutero l (DUONEB) 0.5 mg-3 mg(2.5 mg base)/3 mL nebulizer solution 1 dose, Starting on Thu05/10/19 at 1011, Until Thu05/10/19 at 1015, Jadyn Nguyen : cabinet override lactated ringers infusion 1,000 mL, at 50 mL/hr, Intravenous, CONTINUOUS, Starting on Thu05/10/19 at 0830, Until Thu05/10/19 at 1137, Day of Surgery (Day of Procedure) New Bag 05/10/2019 8:30 AM EDT 1,000 mLs 50 mL/hr lidocaine-EPINEPHrin e 2 %-1:200,000 injection ONCE PRN, Starting on Thu05/10/19 at 0938, Until Thu05/10/19 at 1338, Intra-Operative (Intra-Procedure), Routine Given 05/10/2019 9:38 AM EDT 5 mLs 19- Surgical Site thrombin (bovine) (THROMBIN-JMI) solution ONCE PRN, Starting on Thu05/10/19 at 0938, Until Thu05/10/19 at 1338, Intra-Operative (Intra-Procedure) Given 05/10/2019 9:38 AM EDT 5,000 Units 19- Surgical Site documented in this encounter Active and Recently Administered Medications Times are shown in EDT. Scheduled Medication Order 05/08/2019 05/09/2019 05/10/2019 ceFAZolin (ANCEF) 2g in dextrose 5% 100mL (COMPLETED) 2 g, Intravenous, ONCE, On Thu05/10/19 at 0800, 1 dose, To be administered upon arrival to the OR within one hour prior to incision., Day of Surgery (Day of Procedure), Indication for (Active or Suspected): Prophylaxis 921 (Given - Provid er: Jose Mora CRNA) famotidine (PEPCID) injection 20 mg (COMPLETED) 20 mg, Intravenous, ONCE, 1 dose, On Thu05/10/19 at 0830, Day of Surgery (Day of Procedure), Routine 0830 (Given - Provid er: Karlee King RN) ipratropium-albuterol (DUONEB) 0.5 mg-3 mg(2.5 mg base)/3 mL nebulizer solution 3 mL (COMPLETED) 3 mL, Nebulization, ONCE, 1 dose, On Thu05/10/19 at 1045, PACU Recovery, Routine 1015 (Given - Provid er: Jadyn Nguyen RN) Continuous Medication Order 05/08/2019 05/09/2019 05/10/2019 lactated ringers infusion (CANCELED) 1,000 mL, at 50 mL/hr, Intravenous, CONTINUOUS, Starting on Thu05/10/19 at 0830, Until Thu05/10/19 at 1137, Day of Surgery (Day of Procedure) 0830 (New Bag - Prov ider: Karlee King RN)0918 (Anesthesia Volume Adjustment - Provider: Jose Mora CRNA) PRN Medication Order 05/08/2019 05/09/2019 05/10/2019 bacitracin injection (CANCELED) ONCE PRN, Starting on Thu05/10/19 at 0938, Until Thu05/10/19 at 1338, Intra-Operative (Intra-Procedure), Routine 0938 (Given - Provid er: Taylor Aldana MD) BUpivacaine (PF) (MARCAINE) 0.5 % (5 mg/mL) injection (CANCELED) ONCE PRN, Starting on Thu05/10/19 at 0939, Until Thu05/10/19 at 1338, Intra-Operative (Intra-Procedure), Routine 0939 (Given - Provid er: Taylor Aldana MD) gelatin adsorbable (GELFOAM) sponge (CANCELED) ONCE PRN, Starting on Thu05/10/19 at 0938, Until Thu05/10/19 at 1338, Intra-Operative (Intra-Procedure) 0938 (Given - Provid er: Taylor Aldana MD) HYDROcodone-acetaminophen (NORCO) 5-325 mg per tablet 2 tablet (CANCELED) 2 tablet, Oral, EVERY 4 HOURS PRN, Starting on Thu05/10/19 at 1023, Until Thu05/10/19 at 1137, Pain, For moderate to severe pain (4-10) Initial dose 5mg. If pain control not adequate in 60 minutes, give an additional 5 mg., PACU Recovery, Routine 1114 (Given - Provid er: Jadyn Nguyen RN - Comment: No pain at this time. Given for long ride home.) lidocaine-EPINEPHrine 2 %-1:200,000 injection (CANCELED) ONCE PRN, Starting on Thu05/10/19 at 0938, Until Thu05/10/19 at 1338, Intra-Operative (Intra-Procedure), Routine 0938 (Given - Provid er: Taylor Aldana MD) thrombin (bovine) (THROMBIN-JMI) solution (CANCELED) ONCE PRN, Starting on Thu05/10/19 at 0938, Until Thu05/10/19 at 1338, Intra-Operative (Intra-Procedure) 0938 (Given - Provid er: Taylor Aldana MD) documented in this encounter Care Teams Business Machine Operator Relationship Specialty Start Date End Date Lesley Henriquez MD [address] [place] [address] PCP - General Family Medicine 05/10/19 documented as of this encounter
--- OUTSIDE RECORDS SUMMARY | 2024-06-02 09:53 | XMS_ITS | Encounter Summary ---
Author Organization [facility] [place] [address] Care Team Providers Care Podiatry Doctor Name Role Phone Jass Dennison MD, Reyes Primary Care Provider Encounter Details Date Type Department Care Team (Late st Contact Info) Description 05/02/2019 10:30 AM EDT Telephone Pre-Admission Testing at [facility] [place] [address] Social History Tobacco Use Types Packs/Day Years Used Date Smoking Tobacco: Every Day Cigarettes Smokeless Tobacco: Never Alcohol Use Standard Drinks/Week Comments Yes 7 (1 standard drink = 0.6 oz pur e alcohol) Sex and Gender Information Value Date Recorded Sex Assigned at Not on file Gender Identity Not on file Sexual Orientation Not on file documented as of this encounter Miscellaneous Notes * Addendum Note - Rey Yoder RN - 05/02/2019 10:53 AM EDTAddended by: REY YODER on: 05/02/2019 10:53 AM Modules accepted: Orders documented in this encounter Plan of Treatment Not on file documented as of this encounter Visit Diagnoses Not on filedocumented in this encounter Care Teams Podiatry Doctor Relationship Specialty Start Date End Date Reyes Regan MD [address] [place] [address] PCP - General 09/24/10 05/09/19 documented as of this encounter
--- OUTSIDE RECORDS SUMMARY | 2024-06-02 09:53 | XMS_ITS | Encounter Summary ---
Author Organization [facility] Address [address] [place] [address] Care Team Providers Care Switch Tender Name Role Phone Md RORY Hugo Primary Care Provider Unavaila ble Encounter Details Date Type Department Care Team (Late st Contact Info) Description 07/17/2014 Results Only [facility] [phone] Ashly Blackburn, DO [address] [place] [address] Social History Tobacco Use Types Packs/Day Years Used Date Smoking Tobacco: Never Assessed Sex and Gender Information Value Date Recorded Sex Assigned at Not on file Gender Identity Not on file Sexual Orientation Not on file documented as of this encounter Plan of Treatment Not on file documented as of this encounter Procedures Procedure Name Priority Date/Time Associated Diagnosis Comments PAP TEST- RESULT ONLY Routine 07/17/2014 0:00 EDT documented in this encounter Results * PAP TEST- RESULT ONLY (07/17/2014 0:00 EDT) Pathology Report: CYTOPATHOLOGY REPORT Reports generated via electronic interface contain original data; however they are lacking the format of the original report. Caution should be taken when reading/interpreti ng unformatted reports. Name: ? TIAT TAM ? Accession #: ? [id number] : ? 1960 (Age: 54) ??F ?Collect Date: ? 07/17/2014 Location: ? [facility] ? Receive Date: ? 07/19/2014 Provider: ?ASHLY BLACKBURN DO Copy to: ? Specimen/Source: ?Pap Test, Endocervix, ThinPrep Imaging System with manual evaluation Last Menstrual Period: ? Menstrual/Pregnanc y Status: ? Menopausal Hormonal/Contracep tive Status: ? Tubal ligation: Bilateral Treatment History: ? Endometrial biopsy ? SPECIMEN ADEQUACY ? Satisfactory for Evaluation - transformation zone component present GENERAL CATEGORIZATION ? Negative for Intraepithelial Lesion or Malignancy INTERPRETATION ? Reactive cellular changes associated with inflammation present (includes repair). ? Document reviewed and electronically signed by: ? EDUARDO MARLEY MD ? Report Date: ??07/27/2014 08:09 End of Report [facility] 07/17/2014 07/19/2014 Ashly Blackburn DO PATHOLOGY ORDERABL ES Performing Organization Address City/State/[facility] Co de Phone Number [facility] [address] [place] [address] documented in this encounter Visit Diagnoses Not on filedocumented in this encounter Care Teams Switch Tender Relationship Specialty Start Date End Date Md Hugo MD PCP - General 11/20/10 documented as of this encounter
--- OUTSIDE RECORDS SUMMARY | 2024-06-02 09:53 | XMS_ITS | Encounter Summary ---
Author Organization [facility] Address [address] [place] [address] Care Team Providers Care Network Support Administrator Name Role Phone Md RORY Huog Primary Care Provider Unavaila ble Encounter Details Date Type Department Care Team (Late st Contact Info) Description 11/18/2010 Results Only [facility] - [facility] ([facility]) [address], [place] [address] Linn Yang MD [address] [place], [place] [id number] Social History Tobacco Use Types Packs/Day Years Used Date Smoking Tobacco: Never Assessed Sex and Gender Information Value Date Recorded Sex Assigned at Not on file Gender Identity Not on file Sexual Orientation Not on file documented as of this encounter Plan of Treatment Not on file documented as of this encounter Procedures Procedure Name Priority Date/Time Associated Diagnosis Comments CYTOPATHOLOGY Routine 11/18/2010 0:00 EST documented in this encounter Results * CYTOPATHOLOGY (11/18/2010 0:00 EST) Pathology Report: CYTOPATHOLOGY REPORT ? Reports generated via electronic interface contain original data; ? however they are lacking the format of the original report. ? Caution should be taken when reading/interpreti ng unformatted reports. ? Name: ? TITA TAM S ? Accession #: ? [id number] ? : ? 1960 (Age: 50) ??F ?Collect Date: ? 11/18/2010 ? Location: ? [facility] ? Receive Date: ? 11/20/2010 ? Provider: LINN GRESSER MD ? Copy to: ? Final Report ? SPECIMEN ADEQUACY ? Satisfactory for Evaluation ? - transformation zone component present ? GENERAL CATEGORIZATION ? Negative for Intraepithelial Lesion or Malignancy ? INTERPRETATION ? Shift in janae present suggestive of bacterial vaginosis. ? Last Menstural Period: 10/23/10 ? Menstural/Pregnanc y Status: ??Irregular: menses ? Specimen/Source: ??Pap Test, Cervix/Endocervix, ThinPrep Imaging System with ? manual evaluation ? Document reviewed and electronically signed by: ? Rian Georges, CT(ASCP) ? Report ??Date: 11/25/2010 13:32 ? HPV with Pap Test ? Date Ordered: ? 11/25/2010 ? Status: ?? Signed Out ?Date Complete: ? 11/28/2010 ? By: ??System Interface ? Date Reported: ? 11/28/2010 ? Interpretation ? RESULT: Negative for HPV types 16, 18, 31, 33, 35, 39, 45, 51, 52, ? 56, 58, 59, and 68. ? Comments ? Document reviewed and electronically signed by: ? System Interface ? Report date: 11/28/2010 ? By the signature above, the attending physician certifies that he/she has ? personally conducted a gross and/or microscopic examination of the described ? specimens and rendered or confirmed the above diagnosis. ? End of Report ? [facility] 11/18/2010 11/20/2010 Linn Yang MD PATHOLOGY ORDERABLES Performing Organization Address City/State/[facility] Co de Phone Number [facility] [address] [place] [address] documented in this encounter Visit Diagnoses Not on filedocumented in this encounter Care Teams Network Support Administrator Relationship Specialty Start Date End Date Md Hugo MD PCP - General 11/20/10 documented as of this encounter
--- OUTSIDE RECORDS SUMMARY | 2024-06-02 09:53 | XMS_ITS | Encounter Summary ---
Author Organization [facility] Address [address] [facility] [place] [address] Care Team Providers Care Technical Writer And Editor Name Role Phone Lesley Henriquez MD Primary Care Provider [phone] Reason for Visit * Auth/Cert Specialty Diagnoses / Procedures Referred By Contac t Referred To Contact Diagnoses HNP L5/S1 Procedures PRO LAMINOTOMY, LUMBAR DISK, 1 INTRSP LAMINOTOMY, DECOMPRESSION, FORAMINOTOMY, LUMBAR (WRVU 13.18) Referral ID Status Reason Start Date Expiration Date Visits Re quested Visits Authorized [id number] 1 1 Encounter Details Date Type Department Care Team (Late st Contact Info) Description 05/10/2019 9:18 AM EDT Anesthesia [place] [address] Jose Mora, BASEBALL WINDER [place] [address] Anesthesia Record Procedure Summary Procedure Name Responsible Anesthesiologist Anesthesia Start Time Anesthesia Stop Time LAMINOTOMY, DECOMPRESSION, FORAMINOTOMY, LUMBAR (WRVU 12) (Left: Spine Lumbar) Jose Mora, BASEBALL WINDER 05/10/19 0918 05/10/19 1016 Events Date Time Event Comment 05/10/2019 0904 0918 AN Verify 0918 Start 0918 An Start Data 0920 An Induction 0922 An Intubation 0922 Anesthesia Ready 1005 Extubation/LMA Out 1006 an stop data 1007 Recovery or ICU Handoff Katiana ent care was transferred to the destination unit staff after review of the patient's medical history, current anesthetic/surgical status and plan, according to the Provider Handoff Checklist. 1016 Stop Meds Name Total Midazolam 2 mg fentaNYL 100 mcg IV Lidocaine 100 mg Propofol 200 mg Rocuronium 35 mg Neostigmine 3 mg Glycopyrrolate 0.4 mg Ondansetron 4 mg Dexamethasone 10 mg Ketorolac 30 mg ceFAZolin (ANCEF) 2g in dextrose 5% 100m L 2 g Sugammadex 100 mg lactated ringers infusion 100 mL * Agents Name O2 Air N2O Sevoflurane (et) * Blood No blood administrations on file. Lines, Drains, and Airways Type Details Placement Removal Wound 05/10/19; 0754; shoulder; abrasion; 06/30/22 (LDA cleanup utility RA#[id number]); 171 (LDA cleanup utility RA#[id number]) 05/10/19 0754 by Gem Gleason RN 06/30/22 171 by Bob Irizarry (RETIRED) Peripheral IV Line - Single Lumen 05/10/19; 0814; metacarpal vein (top of hand), right; [id number] catheter system; 20 gauge; distraction, tolerated well, appears comfortable, age-appropriate response; no longer indicated, catheter/device intact; 05/10/19; 1137 05/10/19 0814 by Karlee King RN 05/10/19 1137 by Jadyn Nguyen RN ETT Mask Ventilation: Ea sy (1); ETT Type: Cuffed, Oral; ETT Size: 7 mm; Mac Blade: 4; Notes: Asleep, Pre-O2; Attempts: 1; Laryngoscopy Grade: 1; ETT Placement Verified By: Auscultation, Capnometry, Visual; Secured at Teeth: 23 cm; Removal Date: 05/10/19; Removal Time: 1005 05/10/19 0927 by Jose Mora, BASEBALL WINDER 05/10/19 1005 by Jose Mora, BASEBALL WINDER Incision 05/10/19; 33; lumb ar spine; midline; 06/30/22 (LDA cleanup utility RA#[id number]); 1715 (LDA cleanup utility RA#[id number]) 05/10/19 0933 by Angela Hartmann RN 06/30/22 171 by Irizarry, Dierdre L documented in this encounter Social History Tobacco Use Types Packs/Day Years Used Date Smoking Tobacco: Every Day Cigarettes Smokeless Tobacco: Never Alcohol Use Standard Drinks/Week Comments Yes 7 (1 standard drink = 0.6 oz pur e alcohol) Sex and Gender Information Value Date Recorded Sex Assigned at Not on file Gender Identity Not on file Sexual Orientation Not on file documented as of this encounter OR Notes * Anesthesia Postprocedure Evaluation - Jose Mora CRNA - 05/10/2019 10:17 AM EDT Department of Anesthesiology Post-procedure Note Patient: Tita Remy Procedure Summary Date: 05/10/19 Room / Location: [facility] OR MAIN OR Anesthesia Start: 917 Anesthesia Stop: 1015 Procedure: LAMINOTOMY, DECOMPRESSION, FORAMINOTOMY, LUMBAR (WRVU 13.18) (Left Spine Lumbar) Diagnosis: (HNP L5/S1) Surgeon: Taylor Aldana MD Responsible Provider: Jose Mora CRNA Anesthesia Type: general ASA Status: 2 All Anesthesia Providers: SCOTT Independent: Jose Mora CRNA Vitals Value Taken Time BP Temp Pulse Resp SpO2 Pain Level Patient Location: PACU Level of Consciousness: Conscious but Sleepy Pain Management: Satisfactory Analgesia PONV: None Cardiovascular Status: At Baseline Respiratory Status: Supplemental O2 (NC or FM) Postoperative Fluid Status: Intravascular EUvolemia Possible Anesthetic Complications: NONE apparent at time of evaluation Final Primary Anesthesia Type: General (The anesthetic type performed was the same as planned.) Comments: Pt with wheezing upon arrival to PACU, DUONeb given with good effect. Suggamadex given tor/o recurarization. VSS at this time. Report and care to RN. 183/85, 82 96 16 36.4 * Anesthesia Preprocedure Evaluation - Jose Mora CRNA - 05/10/2019 8:59 AM EDT Pre-Anesthesia Evaluation for: Tita Remy a 58 y.o. female. Procedure(s): LAMINOTOMY, DECOMPRESSION, FORAMINOTOMY, LUMBAR (WRVU 13.18) There are no active problems to display for this patient. Past Medical History: Diagnosis Date ??? High blood pressure ??? Mental health problem DEPRESSION Past Surgical History: Procedure Laterality Date ??? TUBAL LIGATION Social History Tobacco Use ??? Smoking status: Current Every Day Smoker Packs/day: 1.00 Types: Cigarettes ??? Smokeless tobacco: Never Used Substance Use Topics ??? Alcohol use: Yes Alcohol/week: 4.2 oz Types: 7 Shots of liquor per week Social History Substance and Sexual Activity Drug Use Not Currently No Known Allergies Medications: MAR and/or home medications have been reviewed. Physical Exam: Most Recent Vitals: 05/10/19 0743 BP: 170/69 Pulse: 77 Resp: 16 Temp: 36.8 ??C (98.2 ??F) SpO2: 97% Body mass index is 31.62 kg/m??. Height: 165.1 cm (5' 5) Weight: 86.2 kg (190 lb) Airway Assessment: Mallampati: II TM distance: >3 FB Neck ROM: full Cardiovascular Assessment: Rhythm: regular Rate: normal Pulmonary Assessment: breath sounds clear to auscultation Dental Assessment: (+) upper dentures and lower dentures Misc Assessment: Patient is wearing No contact(s). IV access: Peripheral line Anesthesia Plan: ASA 2 general, with a(n) intravenous induction Discussed R/BA to KINZA. Pt agrees. Informed Consent: Anesthetic plan and risks discussed with patient. Use of blood products discussed with patient who. PAT Clinic Note documented in this encounter Plan of Treatment Not on file documented as of this encounter Visit Diagnoses Not on filedocumented in this encounter Administered Medications Inactive Administered Medications - up to 3 most recent administrations Medication Order MAR Action Action Date Dose Rate Site ceFAZolin (ANCEF) 2g in dextrose 5% 100mL 2 g, Intravenous, ONCE, On Thu05/10/19 at 0800, 1 dose, To be administered upon arrival to the OR within one hour prior to incision., Day of Surgery (Day of Procedure), Indication for (Active or Suspected): Prophylaxis Given 05/10/2019 9:22 AM EDT 2 g dexamethasone (DECADRON) injection PRN, Starting on Thu05/10/19 at 0929, Until Thu05/10/19 at 1016, Anesthesia Intra-op, Routine Given 05/10/2019 9:29 AM EDT 10 mg fentaNYL 50 mcg/mL multi-dose injection PRN, Starting on Thu05/10/19 at 0920, Until Thu05/10/19 at 1016, Anesthesia Intra-op, Routine Given 05/10/2019 9:20 AM EDT 100 mcg glycopyrrolate (ROBINUL) injection PRN, Starting on Thu05/10/19 at 0955, Until Thu05/10/19 at 1016, Anesthesia Intra-op, Routine Given 05/10/2019 9:55 AM EDT 0.4 mg ketorolac (TORADOL) injection PRN, Starting on Thu05/10/19 at 0929, Until Thu05/10/19 at 1016, Anesthesia Intra-op, Routine Given 05/10/2019 9:29 AM EDT 30 mg lidocaine (PF) (XYLOCAINE) 100 mg/5 mL (2 %) injection PRN, Starting on Thu05/10/19 at 0920, Until Thu05/10/19 at 1016, Anesthesia Intra-op, Routine Given 05/10/2019 9:20 AM EDT 100 mg midazolam (PF) (VERSED) multi-dose injection PRN, Starting on Thu05/10/19 at 0917, Until Thu05/10/19 at 1016, Anesthesia Intra-op, Routine Given 05/10/2019 9:17 AM EDT 2 mg neostigmine (BLOXIVERZ) injection PRN, Starting on Thu05/10/19 at 0955, Until Thu05/10/19 at 1016, Anesthesia Intra-op, Routine Given 05/10/2019 9:55 AM EDT 3 mg ondansetron (ZOFRAN) injection PRN, Starting on Thu05/10/19 at 0929, Until Thu05/10/19 at 1016, Anesthesia Intra-op, Routine Given 05/10/2019 9:29 AM EDT 4 mg propofol (DIPRIVAN) 10 mg/mL bolus injection (Anesthesia) PRN, Starting on Thu05/10/19 at 0920, Until Thu05/10/19 at 1016, Anesthesia Intra-op Given 05/10/2019 9:47 AM EDT 20 mg Given 05/10/2019 9:20 AM EDT 180 mg rocuronium (ZEMURON) injection PRN, Starting on Thu05/10/19 at 0920, Until Thu05/10/19 at 1016, Anesthesia Intra-op, Routine Given 05/10/2019 9:20 AM EDT 35 mg sugammadex (BRIDION) 100 mg/mL injection PRN, Starting on Thu05/10/19 at 1013, Until Thu05/10/19 at 1020, Anesthesia Intra-op, Routine Given 05/10/2019 10:13 AM EDT 100 mg documented in this encounter Care Teams Technical Writer And Editor Relationship Specialty Start Date End Date Lesley Henriquez MD [address] [place] [address] PCP - General Family Medicine 05/10/19 documented as of this encounter
--- OUTSIDE RECORDS SUMMARY | 2024-06-02 09:53 | XMS_ITS | Encounter Summary ---
Author Organization [facility] Address [facility] [address] Care Team Providers Care Medical Appointment Scheduler Name Role Phone Lseley Henriquez MD Primary Care Provider [phone] Encounter Details Date Type Department Care Team (Late st Contact Info) Description 05/10/2019 8:50 AM EDT Ancillary Procedure Radiology Xray at [facility] [place] [address] Social History Tobacco Use Types Packs/Day Years [...] OR USE Routine 05/10/2019 9:55 AM EDT documented in this encounter Results * XR Fluoro No Rad <1Hr - OR Use (05/10/2019 9:55 AM EDT) Narrative RAD - 05/10/2019 9:56 AM EDT This exam is auto-finalizing. No interpretation was done. Taylor Aldana MD IMG FLUORO [facility] [place], [place] documented in this encounter Visit Diagnoses Not on filedocumented in this encounter Care Teams Medical Appointment Scheduler Relationship Specialty Start Date End Date Lesley Henriquez MD [address] [place] [address] PCP - General Family Medicine 05/10/19 documented as of this encounter
--- OUTSIDE RECORDS SUMMARY | 2024-06-02 09:53 | XMS_ITS | Clinical Summary ---
Author Organization [facility] [place] [address] Care Team Providers Care Director Mba Name Role Phone Lesley Henriquez MD Primary Care Provider [phone] Allergies No known active allergies Medications Medication Sig Dispensed Refills Start Date End Date Status amLODIPine (NORVASC) 10 mg Tablet take 1 tablet by mouth once daily 0 03/31/2019 Active buPROPion (WELLBUTRIN XL) 150 mg Tablet Extended Release 24 hr take 1 tablet by mouth once daily 0 03/31/2019 Active cyclobenzaprine (FLEXERIL) 10 mg Tablet take 1 tablet by mouth twice a day if needed for BACK PAIN AND SPASMS 0 02/24/2019 Active gabapentin (NEURONTIN) 300 mg Capsule take 1 capsule by mouth three times a day 0 03/15/2019 Active losartan-hydrochlorot hiazide (HYZAAR) 100-25 mg Tablet Take 1 tablet by mouth daily. 0 04/01/2019 Active HYDROcodone-acetamino phen (NORCO) 5-325 mg Tablet Take 2 tablets by mouth every 6 hours as needed. 20 tablet 05/10/2019 Active Social History Tobacco Use Types Packs/Day Years Used Date Smoking Tobacco: Every Day Cigarettes Smokeless Tobacco: Never Alcohol Use Standard Drinks/Week Comments Yes 7 (1 standard drink = 0.6 oz pur e alcohol) Sex and Gender Information Value Date Recorded Sex Assigned at Not on file Gender Identity Not on file Sexual Orientation Not on file Last Filed Vital Signs Vital Sign Reading Time Taken Comments Blood Pressure 136/63 05/10/2019 11:16 AM EDT Pulse 70 05/10/2019 11:16 AM EDT Temperature 36.1 ??C (97 ??F) 05/10/2019 10:09 AM EDT Respiratory Rate 14 05/10/2019 11:16 AM EDT Oxygen Saturation 94% 05/10/2019 11:16 AM EDT Inhaled Oxygen Concentration - - Weight 86.2 kg (190 lb) 05/10/2019 7:43 AM EDT Height 165.1 cm (5' 5) 05/10/2019 7:43 AM EDT Body Mass Index 31.62 05/10/2019 7:43 AM EDT Plan of Treatment Health Maintenance Due Date Last Done Comments CT Colonography 1959 Colonoscopy 1960 Colorectal Cancer Screening 1960 FIT DNA 1959 FIT 1960 Sigmoidoscopy (10 year) with FIT yearly 1960 Sigmoidoscopy 1960 HIV screen 1977 Hepatitis C Screening 1977 Lipid Screening 1977 Tdap adult 1978 Tetanus vaccine 1978 HPV test 1989 PAP Smear 1989 Breast Cancer Share Decision Needed 1999 Breast Cancer screening 1999 Zoster vaccine (1 of 2) 2009 Advance Directive 2014 Covid-19 Vaccine (1 - season) 2023 Influenza (Flu) vaccine (1 o f 1 - Influenza standard series) 07/03/2024 Care Teams Director Mba Relationship Specialty Start Date End Date Lesley Henriquez MD [address] [place] [address] PCP - General Family Medicine 05/10/19
--- OUTSIDE RECORDS SUMMARY | 2024-06-02 09:53 | XMS_ITS | Encounter Summary ---
Author Organization [facility] [place] [address] Care Team Providers Care Bargeman Name Role Phone Lesley Henriquez MD Primary Care Provider [phone] Reason for Visit * Auth/Cert Specialty Diagnoses / Procedures Referred By Contac t Referred To Contact Diagnoses HNP L5/S1 Procedures PRO LAMINOTOMY, LUMBAR DISK, 1 INTRSP LAMINOTOMY, DECOMPRESSION, FORAMINOTOMY, LUMBAR (WRVU 13.18) Referral ID Status Reason Start Date Expiration Date Visits Re quested Visits Authorized [id number] 1 1 Encounter Details Date Type Department Care Team (Latest Contact Info) Description 05/10/2019 7:22 AM EDT - 05/10/2019 11:38 AM EDT Hospital Encounter Post Acute Care Unit at [facility] [address] [place] [address] Taylor Aldana MD [address] [facility] [place] [address] Herniated nucleus pulposus, L5-S1, left Discharge Disposition: Home Social History Tobacco Use Types Packs/Day Years [...] six weeks after surgery with a Physician???s Firewall Security Engineer at the surgeon???s office. You will have [...] to stop taking it. ??? Only take awea-ndb-omxpewa or prescription medicine for pain, discomfort or [...] If you have any questions, please call [facility] Neuro[facility] at [phone], during business hours of Thursday through Thursday from 8:00 a.m. until 4:00 p.m. In case of emergency during non-business hours, please call the same main number and follow the prompts to page the neurosurgeon concession manager. SMOKING CESSATION INFORMATION: ??? [place] QUITLINE: ??? [place] QUITLINE: ??? [email or web address] If you smoke, stop now! Smoking may impede healing. MAKE SURE YOU: ??? Understand these instructions. ??? Will seek medical care if you are feeling poor, or get worse. ??? Will call the surgeon???s office with any questions or concerns at : [phone] The above information has been presented or [...] 8:59 AM EDT Taylor Aldana MD 05/10/2019 [facility] Operative Note [facility] [address] [id number] Patient Name: Tita Remy : [id number] MR#: [id number] Case Date: 05/10/2019 Case Scheduled Time: 904 [...] PACU having tolerated the procedure well. The neurosurgical nurse, (Rakesh Patel, worked under my direction for the duration of the operative session. The kindergarten assistant adequately prepped the operative site and [...] interpretation was done. Taylor Aldana MD IMG [facility] [place], [place] * SCAN DOC: TELEMETRY STRIPS (05/10/2019 12:00 AM EDT) Narrative 05/10/2019 12:00 AM EDT Ordered by an unspecified provider. Scanning Provider MEDIA MGR SCAN EXT O RDR/RSLT documented in this encounter Visit Diagnoses Diagnosis Herniated nucleus pulposus, L5-S1, left Displacement of lumbar intervertebral disc without myelopathy documented in this encounter Administered Medications Inactive Administered Medications - up to 3 most recent administrations Medication Order MAR Action Action Date Dose Rate Site famotidine (PEPCID) injection 20 mg 20 mg, Intravenous, ONCE, 1 dose, On Thu05/10/19 at 0830, Day of Surgery (Day of Procedure), Routine Given 05/10/2019 8:30 AM EDT 20 mg HYDROcodone-acetaminophen (NORCO) 5-325 mg per tablet 2 tablet 2 tablet, Oral, EVERY 4 HOURS PRN, Starting on Thu05/10/19 at 1023, Until Thu05/10/19 at 1137, Pain, For moderate to severe pain (4-10) Initial dose 5mg. If pain control not adequate in 60 minutes, give an additional 5 mg., PACU Recovery, Routine Given 05/10/2019 11:14 AM EDT 1 tablet ipratropium-albuterol (DUONEB) 0.5 mg-3 mg(2.5 mg base)/3 mL nebulizer solution 3 mL 3 mL, Nebulization, ONCE, 1 dose, On Thu05/10/19 at 1045, PACU Recovery, Routine Given 05/10/2019 10:15 AM EDT 3 mLs ipratropium-albuterol (DUONEB) 0.5 mg-3 mg(2.5 mg base)/3 mL nebulizer solution 1 dose, Starting on Thu05/10/19 at 1011, Until Thu05/10/19 at 1015, Jadyn Nguyen : cabinet override lactated ringers infusion 1,000 mL, at 50 mL/hr, Intravenous, CONTINUOUS, Starting on Thu05/10/19 at 0830, Until Thu05/10/19 at 1137, Day of Surgery (Day of Procedure) New Bag 05/10/2019 8:30 AM EDT 1,000 mLs 50 mL/hr documented in this encounter Active and Recently [...] MD) documented in this encounter Care Teams Bargeman Relationship Specialty Start Date End Date Lesley Henriquez MD [address] [place] [address] PCP - General Family Medicine 05/10/19 documented as of this encounter
--- OUTSIDE RECORDS SUMMARY | 2024-06-02 09:53 | XMS_ITS | Encounter Summary ---
Author Organization [facility] Address [address] [place] [address] Care Team Providers Care Pediatric Physical Therapist Name Role Phone Md RORY Hugo Primary Care Provider Unavaila ble Encounter Details Date Type Department Care Team (Latest Contact Info) Description 01/31/2022 Lab Requisition [facility] Pathology & Laboratory Medicine - [facility] [address] [place] [address] Lesley Henriquez MD [address], [place] [id number] Encounter for gynecological examination (general) (routine) without abnormal findings Social History Tobacco Use Types Packs/Day Years Used Date Smoking Tobacco: Never Assessed Sex and Gender Information Value Date Recorded Sex Assigned at Not on file Gender Identity Not on file Sexual Orientation Not on file documented as of this encounter Plan of Treatment Scheduled Orders Name Type Priority Associated Diagnoses Orde r Schedule PAP TEST Pathology Today Encounter for gynecological examination (general) (routine) without abnormal findings Ordered: 01/31/2022 documented as of this encounter Visit Diagnoses Diagnosis Encounter for gynecological examination (general) (routine) without abnormal findings documented in this encounter Care Teams Pediatric Physical Therapist Relationship Specialty Start Date End Date Md Hugo MD PCP - General 11/20/10 documented as of this encounter
--- OUTSIDE RECORDS SUMMARY | 2024-06-02 09:53 | XMS_ITS | Clinical Summary ---
Author Organization [facility] Address [address] [place] [address] Care Team Providers Care Railroad Crossing Protection Maintainer Name Role Phone Md RORY Hugo Primary Care Provider Unavaila ble Social History Tobacco Use Types Packs/Day Years Used Date Smoking Tobacco: Never Assessed Sex and Gender Information Value Date Recorded Sex Assigned at Not on file Gender Identity Not on file Sexual Orientation Not on file Plan of Treatment Health Maintenance Due Date Last Done Comments Hepatitis C Screen 1960 RSV Immunization ( o r 60+ Years) (1 - 1-dose 60+ series) 2019 COVID-19 Vaccine (2022-24 season) 2023 Care Teams Railroad Crossing Protection Maintainer Relationship Specialty Start Date End Date Md Hugo MD PCP - General 11/20/10
--- OUTSIDE RECORDS SUMMARY | 2024-06-02 09:53 | XMS_ITS | Encounter Summary ---
Author Organization [facility] Address [address] [place] [id number] Care Team Providers Care Utility Manager Name Role Phone Md RORY Hugo Primary Care Provider Unavaila ble Encounter Details Date Type Department Care Team (Late st Contact Info) Description 03/13/2011 Results Only [facility] Laboratory Services - [facility] [address], [place] [id number] Mary Moya MD [address] [place] [address] [place], [place] Social History Tobacco Use Types Packs/Day Years Used Date Smoking Tobacco: Never Assessed Sex and Gender Information Value Date Recorded Sex Assigned at Not on file Gender Identity Not on file Sexual Orientation Not on file documented as of this encounter Plan of Treatment Not on file documented as of this encounter Procedures Procedure Name Priority Date/Time Associated Diagnosis Comments SURGICAL PATHOLOGY Routine 03/13/2011 0:00 EDT documented in this encounter Results * SURGICAL PATHOLOGY (03/13/2011 0:00 EDT) Pathology Report: SURGICAL PATHOLOGY REPORT ? Reports generated via electronic interface contain original data; ? however they are lacking the format of the original report. ? Caution should be taken when reading/interpreti ng unformatted reports. ? Name: ? ANEL, TITA S ? Accession #: ? [id number] ? : ? 1960 (Age: 50) ??F ? Collect Date: ? 03/13/2011 ? Location: ? [facility] ? Receive Date: ? 03/14/2011 ? Provider: MARY PREETHI MD ? Copy to: CECE AVILA MD ? Final Pathologic Diagnosis: ? Endometrium, biopsy: ? 1. ?Inactive and secretory endometrium with exogenous hormone effect. ?? 2. ? Focal stromal breakdown. ? 3. ? No cytologic atypia identified. ? Document reviewed and electronically signed by: ? PAULINE BONNIE MD ? Report ??Date: 03/17/2011 16:00 ? By the signature above, the attending physician certifies that he/she has ? personally conducted a gross and/or microscopic examination of the described ? specimens and rendered or confirmed the above diagnosis. ? Specimen(s) Received: ? Endometrial bx ? Clinical History: ? DUB; LMP: 4/12/11, Provera; BTL ?? control ? Gross Description: ? Received in formalin labelled Anel, Tita and endometrial biopsy ?? is a 2.5 x 2.5 x 0.9 cm aggregate of pink-mclean tissue fragments admixed with ? red-brown blood clot. ??The specimen is filtered and entirely submitted in (A1) ?? (A3). ??(Walter Lizarraga)/kmm ? End of Report ? GENARO SANDRA 03/13/2011 03/14/2011 9:5 2 EDT Mary Moya MD PATHOLOGY ORDERABLES Performing Organization Address City/State/[facility] Co de Phone Number [facility] [address] [place] [address] documented in this encounter Visit Diagnoses Not on filedocumented in this encounter Care Teams Utility Manager Relationship Specialty Start Date End Date Md Hugo MD PCP - General 11/20/10 documented as of this encounter
--- OUTSIDE RECORDS SUMMARY | 2024-06-02 09:53 | XMS_ITS | Encounter Summary ---
Author Organization [facility] [place] [address] Care Team Providers Care Personnel Worker Name Role Phone Lesley Henriquez MD Primary Care Provider [phone] Encounter Details Date Type Department Care Team (Late st Contact Info) Description 06/08/2019 Ancillary Procedure Radiology at [facility] [address] [place] [id number] Taylor Aldana MD [address] [place] [address] Social History Tobacco Use Types Packs/Day Years [...] Associated Diagnosis Comments FILM LIBRARY STORAGE ONLY ULTRASOUND STUDY Routine 06/08/2019 12:00 AM EDT documented in this encounter Results * Film Library- Storage Only Ultrasound Study (06/08/2019 12:00 AM EDT) Narrative [facility] RAD - 06/10/2019 11:38 AM EDT This exam is auto-finalizing. It's purpose is for storage only. Taylor Aldana MD [facility] FILM LIBRARY ORDERABLES [place], [place] documented in this encounter Visit Diagnoses Not on filedocumented in this encounter Care Teams Personnel Worker Relationship Specialty Start Date End Date Lesley Henriquez MD [address] [place] [address] PCP - General Family Medicine 05/10/19 documented as of this encounter
--- OUTSIDE RECORDS SUMMARY | 2024-06-02 09:53 | XMS_ITS | Encounter Summary ---
Author Organization [facility] [place] [address] Care Team Providers Care Vehicle Safety Inspector Name Role Phone Jass Dennison MD, Counts Include [address] At [facility] Primary Care Provider [phone] Encounter Details Date Type Department Care Team (Late st Contact Info) Description 02/10/2019 Ancillary Procedure [place] [address] Taylor Aldana MD [address] [place] [id number] Social History Tobacco Use Types Packs/Day Years [...] Associated Diagnosis Comments FILM LIBRARY STORAGE ONLY DX SPINE Routine 02/10/2019 12:00 AM EDT documented in this encounter Results * Film Library- Storage Only DX Spine (02/10/2019 12:00 AM EDT) Narrative MAYO - 04/11/2019 1:25 PM EDT This exam is auto-finalizing. It's purpose is for storage only. Taylor Aldana MD IMG FILM LIBRARY OR DERABLES [place], [place] documented in this encounter Visit Diagnoses Not on filedocumented in this encounter Care Teams Vehicle Safety Inspector Relationship Specialty Start Date End Date Reyes Regan MD [address] [place], [place] [phone] PCP - General 09/24/10 05/09/19 documented as of this encounter
--- OUTSIDE RECORDS SUMMARY | 2024-06-02 09:53 | XMS_ITS | Referral Summary ---
Author Organization [facility] Address [address] [place] [address] Care Team Providers Care Radio Installer Automobile Name Role Phone Md RORY Hugo Primary Care Provider Unavaila ble Social History Tobacco Use Types Packs/Day Years Used Date Smoking Tobacco: Never Assessed Sex and Gender Information Value Date Recorded Sex Assigned at Not on file Gender Identity Not on file Sexual Orientation Not on file Plan of Treatment Not on file Care Teams Radio Installer Automobile Relationship Specialty Start Date End Date Md Hugo MD PCP - General 11/20/10
--- OUTSIDE RECORDS SUMMARY | 2024-06-02 09:53 | XMS_ITS | Encounter Summary ---
Author Organization [facility] [place] [address] Care Team Providers Care Horticultural Specialty Grower Inside Name Role Phone Lesley Henriquez MD Primary Care Provider [phone] Encounter Details Date Type Department Care Team (Late st Contact Info) Description 09/28/2019 Ancillary Procedure Radiology at [facility] [address] [place] [id number] Taylor Aldana MD [address] [facility] [place] [address] Social History Tobacco Use Types Packs/Day Years [...] FILM LIBRARY STORAGE ONLY MR SPINE Routine 09/28/2019 12:00 AM EST documented in this encounter Results * Film Library- Storage Only MR Spine (09/28/2019 12:00 AM EST) Narrative RAD - 10/03/2019 12:23 PM EST This exam is auto-finalizing. It's purpose is for storage only. Taylor Aldana MD IMG FILM LIBRARY ORDERABLES [place], [place] documented in this encounter Visit Diagnoses Not on filedocumented in this encounter Care Teams Horticultural Specialty Grower Inside Relationship Specialty Start Date End Date Lesley Henriquez MD [address] [place] [address] PCP - General Family Medicine 05/10/19 documented as of this encounter
[2024-06-02 15:26] LABS: HCT 38.7 % (36.0-46.0); HGB 13.5 g/dL (11.2-15.7)
[2024-06-02 15:53] LABS: ALT 38 U/L (14-59); AST 22 U/L (15-37); Alkaline Phosphatase 106 U/L (46-116); Anion Gap 10.3 mmol/L (3-11); BUN 6 mg/dL (7-18); Bilirubin, Total 0.34 mg/dL (0.2-1.0); CO2 29.7 mmol/L (21.0-32.0); Calcium 9.2 mg/dL (8.5-10.1); Calculated LDL 46 mg/dL (<100); Chloride 96 mmol/L (98-107); Cholesterol 115 mg/dL (<200); Estimated GFR 62.91 (mL/min/1.73m2); Ferritin 173 ng/mL (8-252); Glucose 193 mg/dL (74-106); HDL Cholesterol 35 mg/dL (40-60); Potassium 3.1 mmol/L (3.5-5.1); Sodium 136 mmol/L (136-145); Total Protein 7.6 g/dL (6.4-8.2); Triglyceride 170 mg/dL (<150)
[2024-06-02 16:02] LABS: Hemoglobin A1C 8.4 % (<5.7)
== END 2024-06-02 09:51 | disposition home or self-care (01) ==
LOC: NCHCN 09:50
PROVIDERS: PCP Family Medicine; Visit Provider Family Medicine
DX: Z00.00 Encounter for general adult medical examination without abnormal findings (principal); E11.9 Type 2 diabetes mellitus without complications; E78.5 Hyperlipidemia, unspecified; Z13.0 Encounter for screening for diseases of the blood and blood-forming organs and certain disorders involving the immune mechanism
CPT/HCPCS: 80053; 80061; 82728; 83036; 85014; 85018

== ENCOUNTER 2025-03-10 15:04 | Outpatient (REF) | payer BC, SELFPAY ==
[2025-03-10 16:40] LABS: ALT 33 U/L (14-59); AST 24 U/L (15-37); Albumin 3.9 g/dL (3.4-5.0); Alkaline Phosphatase 97 U/L (46-116); Anion Gap 8.9 mmol/L (3-11); BUN 9 mg/dL (7-18); Bilirubin, Total 0.4 mg/dL (0.2-1.0); CO2 28.1 mmol/L (21.0-32.0); CREATININE 0.9 mg/dL (0.55-1.02); Calcium 9.4 mg/dL (8.5-10.1); Chloride 101 mmol/L (98-107); Estimated GFR 70.95 (mL/min/1.73m2); Glucose 131 mg/dL (74-106); Potassium 4.1 mmol/L (3.5-5.1); Sodium 138 mmol/L (136-145); Total Protein 7.2 g/dL (6.4-8.2)
[2025-03-10 17:04] LABS: Hemoglobin A1C 7.2 % (<5.7)
== END 2025-03-10 15:05 | disposition home or self-care (01) ==
LOC: NCHCN 15:04
PROVIDERS: PCP Family Medicine; Visit Provider Family Medicine
DX: I10 Essential (primary) hypertension (principal); E11.9 Type 2 diabetes mellitus without complications
CPT/HCPCS: 80053; 83036

== ENCOUNTER 2025-07-15 13:27 | Emergency (ER) | payer BC, SELFPAY ==
[2025-07-15 13:33] VITALS: BP 163/84; PULSE 108; RESP 16; TEMP 36.6; O2SAT 98
[2025-07-15 13:35] VITALS: BP 163/84; PULSE 108; RESP 16; TEMP 36.6; O2SAT 98
--- NOTE | 2025-07-15 13:45 | DI.RAD_ITS ---
Exam(s) XR ANKLE RT COMPLETE EXAM: XR ANKLE RT COMPLETE CLINICAL HISTORY: lateral malleolus wound, eval osteo. TECHNIQUE: 2D digital imaging was performed. COMPARISON: No exams were available for comparison FINDINGS: 3 views There is a prominent soft tissue defect over the lateral aspect of the ankle. There is no radiopaque foreign body at the level of this large ulcer. There is no obvious cortical loss in the subjacent lateral malleolus to suggest osteomyelitis. No evidence of fracture or widening the ankle mortise. Talar dome unremarkable. Moderate size inferior calcaneal spur is noted as is an enthesophyte on the posterior calcaneus Achilles insertion site. IMPRESSION: Large deep lateral skin ulcer. No obvious radiographic evidence of osteomyelitis. If clinically indicated follow-up MRI can be performed for added sensitivity and specificity with respect to any possibility of osteomyelitis. DATA REPOSITORY: RADIATION DOSE DELIVERED:
--- NOTE | 2025-07-15 13:45 | DI.RAD_ITS ---
Exam(s) XR TIB/FIB RT EXAM: XR TIB/FIB RT CLINICAL HISTORY: posterior calf wounds, eval osteo. TECHNIQUE: 2D digital imaging was performed. COMPARISON: No exams were available for comparison FINDINGS: Two views No evidence of fractures. Bone density normal. There are defects in the skin over the posterior aspect of the calf. There is no radiopaque foreign body in this region. No evidence of osteomyelitis. IMPRESSION: No evidence of osteomyelitis in the tibia and fibula. DATA REPOSITORY: RADIATION DOSE DELIVERED:
--- NOTE | 2025-07-15 13:57 | W.ED.GENAD ---
Discharge Plan Disposition Patient Disposition: Home Condition: Stable Discharge Details Clinical Impression: Diabetic ankle ulcer, Diabetic ulcer of calf, Tachycardia, paroxysmal, Diabetes mellitus type 2 in obese, Hypokalemia Primary Care Provider: Lesley Henriquez V ED Provider: Angela Kaye Recommendations for Follow Up Recommended tests to be ordered by follow up provider: BMP, Mag, Will require Zio Patch Home Meds and New Rx's Prescriptions: New cephalexin 500 mg capsule 500 mg PO QID 10 Days Qty: 40 0RF sulfamethoxazole-trimethoprim [Bactrim DS] 800-160 mg tablet 1 tab PO Q12H 10 Days Qty: 20 0RF Morphine Ir, 4 Tabs/Btl [Msir, 4 Tabs/Btl] 15 mg PO DISPENSE Qty: 0 0RF No Action amlodipine 10 mg tablet 10 mg PO DAILY multivitamin capsule 1 cap PO DAILY hydrochlorothiazide 25 mg tablet 25 mg PO DAILY Bio-K plus 50 billion cell capsule,delayed release(DR/EC) 1 cap PO DAILY Qty: 30 0RF potassium chloride 10 mEq capsule, extended release See Rx Instructions .ROUTE .COMPLEX Patient Comments: TAKE 1 CAPSULE BY MOUTH EVERY DAY Rx Instructions: 10 mEq orally every other day per patient report losartan 100 mg tablet 100 mg PO DAILY Patient Comments: TAKE 1 TABLET BY MOUTH EVERY DAY Discharge Instructions Instructions: Diabetic Foot Ulcer (DC) Additional Instructions: You were seen in the emergency department today for evaluation of ankle and calf ulcers likely due to your diabetes. In our department you had a full physical examination performed, had laboratory studies that were reassuring though your white blood cell count is slightly elevated, consistent with this infection. Your x-ray does not show any sign of spread of the infection to the bones. You received antibiotics, and were noted to have a slightly low potassium for which you received repletion. Your primary care provider will need to follow-up on this level and ensure that it is improved, most people get all of the potassium and magnesium that they need through their diet, and you could consider adding potatoes, bananas, leafy greens and dark chocolate your diet to improve these levels. You had a brief episode of a fast heart rate, but did not have any symptoms. Your EKG was reassuring and I think your primary care provider should discuss placing you on a Holter monitor or a Zio patch for monitoring. I placed a referral to podiatry for ongoing wound care, as these ulcers will require extensive treatment given their severity. Please complete the entire course of antibiotics that I provided you today, even if you start to feel better. You can use Tylenol for your pain but should limit ibuprofen due to your slight increase in your kidney levels today. A short course of oral morphine was provided to you for breakthrough severe pain. please follow-up with your primary care provider in the next few days to discuss this visit and any symptoms that change, worsen, or persist. Thank you for allowing us to be part of your care. HPI General Mode of arrival: ambulatory. Date/Time Provider Initiated Documentation: 07/15/25 13:39. Limitations to Documentation: no limitations. Information obtained by: patient and old records reviewed. HPI Narrative: This is a 65-year-old female patient with a history of diabetes, hypertension, COPD presenting for evaluation of leg wounds and infections. The patient reports that about a month ago she was shaving and cut her lateral ankle. She states that since that time she has had waxing and waning redness in that area and has a wound that will not heal. She reports that she has been soaking in Epsom salts, using diluted peroxide, and topical antibiotic ointment without improvement. She also has 2 wounds on the back of her calf, she believes they were initially bug bites that she scratched accidentally. She has not been seen by her primary care provider for these injuries, and has not been on antibiotics. She reports that she has not had any fevers or chills and has felt systemically well, maintaining her hydration. She does experience intermittent tingling and decreased sensation in her bilateral feet that are not increased from her normal. Related Data Home Medications ?Medication ?Instructions ?Recorded ?Confirmed amlodipine 10 mg tablet 10 mg PO DAILY 04/04/19 07/15/25 multivitamin 1 cap PO DAILY 04/04/19 07/15/25 hydrochlorothiazide 25 mg tablet 25 mg PO DAILY 04/17/20 07/15/25 losartan 100 mg tablet 100 mg PO DAILY 03/09/21 07/15/25 potassium chloride 10 mEq See Rx Instructions .Route .COMPLEX 03/09/21 07/15/25 capsule,extended release L. acidophilus,casei,rhamnosus 50 1 cap PO DAILY #30 caps 03/14/21 07/15/25 billion cell capsule,delayed release (Bio-K plus) MORPHine IR, 4 tabs/btl [MSIR, 4 15 mg PO DISPENSE ##0 07/15/25 tabs/btl] cephalexin 500 mg capsule 500 mg PO QID 10 days #40 caps 07/15/25 sulfamethoxazole 800 1 tab PO Q12H 10 days #20 tabs 07/15/25 mg-trimethoprim 160 mg tablet (Bactrim DS) Previous Rx's ?Medication ?Instructions ?Recorded L. acidophilus,casei,rhamnosus 50 1 cap PO DAILY #30 caps 03/14/21 billion cell capsule,delayed release (Bio-K plus) MORPHine IR, 4 tabs/btl [MSIR, 4 15 mg PO DISPENSE ##0 07/15/25 tabs/btl] cephalexin 500 mg capsule 500 mg PO QID 10 days #40 caps 07/15/25 sulfamethoxazole 800 1 tab PO Q12H 10 days #20 tabs 07/15/25 mg-trimethoprim 160 mg tablet (Bactrim DS) Allergies Allergy/AdvReac Type Severity Reaction Status Date / Time No Known Allergies Allergy Unverified 03/27/21 09:08 General Stated Complaint: Cellulitis MELISSA: 3 Exam Narrative Exam Narrative: Gen: Awake and alert, in no apparent distress HEENT: Non-icteric sclera Neck: Supple Lungs: No apparent respiratory distress, normal respiratory effort. CV: Appears well perfused, strong distal pulses, heart with regular rate and rhythm Abdomen: Non-distended MSK: Moves 4 extremities without apparent limitation in ROM. Skin findings as noted below, strong DP pulses, full strength and preserved gross sensation of the foot Skin: Visualized skin as noted below, the patient has an ulceration to the lateral ankle, and 2 smaller areas on the posterior calf, with evidence of slough/exudate in the wound base. There is mild surrounding redness, induration, and warmth compared to unaffected tissue. She has mild 1+ edema of the foot distal to these skin changes. Neuro: Normal Gait, no obvious focal deficits or facial asymmetry. Speaks in full, clear sentences. Psych: Appropriate for situation. Course Vital Signs Vital signs: Vital Signs Temperature 36.6 C 07/15/25 13:33 Pulse 108 H 07/15/25 13:33 Respiratory Rate 16 07/15/25 13:33 Blood Pressure 163/84 H 07/15/25 13:33 Pulse Oximetry 98 07/15/25 13:33 Temperature 36.6 C 07/15/25 13:35 Temperature Source Tympanic 07/15/25 13:35 Pulse 108 H 07/15/25 13:35 Respiratory Rate 16 07/15/25 13:35 Blood Pressure 163/84 H 07/15/25 13:35 Pulse Oximetry 98 07/15/25 13:35 Pain Level 9 07/15/25 13:35 Medical Decision Making This is a 65-year-old female patient presenting for evaluation of ankle and calf infection. Differential includes but is not limited to diabetic ulcer, osteomyelitis, cellulitis. No fluctuance to suggest abscess, I considered vascular issues preventing wound healing, though the patient has a strong pulse and no new neurovascular deficits from her baseline. She does not have any fever or systemic symptoms to significantly increase my concern for sepsis or bacteremia. We will obtain x-ray imaging to rule out osteomyelitis, obtain labs to include CBC, CMP, magnesium, ESR, and CRP. We will perform wound care and dressed the area with protective dressings and Medihoney. I anticipate the patient would benefit from a wound care referral as she will likely require debridement and extended wound care. - I reviewed the patient's labs, she has a leukocytosis to 14, no anemia or thrombocytopenia. Electrolytes notable for a low potassium to 2.8 and a borderline low magnesium at 1.7. Creatinine 1.3 which is slightly up from her baseline. No evidence of liver pathology, CRP is mildly elevated to 1 and ESR is 35. I did review the patient's x-ray, which notes no evidence of osteomyelitis. I started the patient on Bactrim and Keflex, and provided her with oral and intravenous potassium for repletion. We did notice on the patient's telemetry that she had a brief and nonsustained elevation in her heart rate above 150, which was not accompanied by any chest pain, dizziness, diaphoresis, palpitations, etc. The patient was entirely asymptomatic and by the time we went to the room she was back in a sinus rhythm with a rate of 90. An EKG was obtained, which shows a sinus rhythm with a rate of 84, no ischemia or interval abnormality. I discussed follow-up with the patient, which will include repeat laboratory studies, likely Zio patch or Holter monitor, and wound care. A referral to podiatry was placed. I provided her with prescriptions for antibiotics and a short take-home course of oral morphine for breakthrough pain with wound care. I do feel that given her reassuring systemic examination that this is a reasonable case to trial outpatient management, as the patient has the ability to follow-up and has the ability to return to care if things were to change or worsen. At this time, the patient has had a full medical evaluation and is safe for discharge to home. They are hemodynamically stable, ambulatory, and tolerating PO. They are understanding of the follow-up plan and return precautions. They left our facility without incident. Angela Kaye MD [facility] All Active Problems (Updated 07/15/25 @ 16:13 by Angela Kaye MD) Tachycardia, paroxysmal (Acute) Diabetic ulcer of calf (Acute) Diabetic ankle ulcer (Acute) Diabetes mellitus type 2 in obese (Acute) Hypokalemia (Acute) Discharge planning issues (Acute) DVT prophylaxis (Acute) COPD, mild (Chronic) Hypertension (Chronic) Cat bite (Acute) Cat bite of right hand (Acute) Cat bite of left hand with infection (Acute) Leg wound, right (Acute) Medical History (Updated 07/15/25 @ 16:13 by Angela Kaye MD) Seasonal affective disorder Depression Hyperlipidemia Tobacco use disorder Pap smear vag w ASC-US Hemorrhoids Bilateral calf pain Situational anxiety Low back pain Back pain with radiculopathy Surgical History (Updated 03/10/21 @ 13:14 by Carlene Real MD) History of back surgery Family History (Updated 03/10/21 @ 13:18 by Carlene Real MD) Mother Stroke Diabetes Hypertension Father Stroke Hypertension Cancer prostate cancer Sister Cancer tongue/throat cancer (smoker) Social History (Updated 03/10/21 @ 13:19 by Carlene Real MD) Smoking/Tobacco Use Status: Current every day Tobacco Type: cigarettes Smoking packs per day: 0.5 Smoking cigarettes per day: 10.0 Years smoked: 35 Smoking pack-years: 17.50 Tobacco: How many years used: 35 Counseling given: provider counseling and support medications Smoking risk assessment performed?: Yes Alcohol Intake: current Alcohol Intake frequency: 0-2 drinks per day Drug use: Never Substance use type: does not use Current gender identity: female Do you feel safe at home: Yes Do you feel safe in your relationship?: Yes
[2025-07-15] MEDS: fentaNYL 100 MCG/2 ML VIAL 50 MCG IVP (14:11)
[2025-07-15 14:13] LABS: Abs Immature Grans 0.08 10^3/uL (0.0-0.06); HCT 40.7 % (36.0-46.0); HGB 14.1 g/dL (11.2-15.7); Immature Grans % 0.6 %; MCH 29.7 pg (27.0-33.0); MCHC 34.6 % (32.0-36.0); MCV 86 fL (80-95); MPV 9.7 fL (8.0-11.0); Platelet Count 348 10^3/uL (130-400); RBC 4.75 10^6/uL (3.93-5.22); RDW 12.9 % (11.7-14.6); RDW-SD 40.4 fL; WBC 14.39 10^3/uL (4.4-10.8)
[2025-07-15 14:28] LABS: ESR 35 mm/hr (0-30)
[2025-07-15 14:30] LABS: ALT 32 U/L (14-59); AST 20 U/L (15-37); Albumin 4.0 g/dL (3.4-5.0); Alkaline Phosphatase 93 U/L (46-116); Anion Gap 10.3 mmol/L (3-11); BUN 10 mg/dL (7-18); Bilirubin, Total 0.4 mg/dL (0.2-1.0); C-Reactive Protein 1.00 mg/dL (<or=0.5); CO2 32.7 mmol/L (21.0-32.0); Calcium 9.5 mg/dL (8.5-10.1); Chloride 93 mmol/L (98-107); Estimated GFR 45.35 (mL/min/1.73m2); Glucose 208 mg/dL (74-106); Magnesium 1.7 mg/dL (1.8-2.4); Sodium 136 mmol/L (136-145); Total Protein 7.8 g/dL (6.4-8.2)
[2025-07-15 14:40] LABS: Potassium 2.8 mmol/L (3.5-5.1)
[2025-07-15] MEDS: POTASSIUM CHLORIDE 10 MEQ/100 ML BAG 100 MEQ IV_INF (15:09)
[2025-07-15] MEDS: Acetaminophen 500 MG TAB 1000 MG PO (15:14)
[2025-07-15] MEDS: Cephalexin 500 MG CAP PO (15:15)
[2025-07-15] MEDS: Sulfameth/Trimeth DS TAB 1 TAB PO (15:15)
[2025-07-15] MEDS: Ibuprofen 600 MG TAB PO (15:15)
[2025-07-15] MEDS: Potassium Chloride 20 MEQ TABCR 40 MEQ PO (15:15)
--- NOTE | 2025-07-15 15:15 | RT.EKG_ITS ---
APPROVED REPORT Exam: Resting ECG Reason for Exam: tachycardia Patient Location: E HR:84 bpm ECG Measurements Heart Rate 84 AXIS RI 167 P 59 QRSd 93 QRS 64 QT 383 T 39 QTc 454 Conclusion Sinus rhythm, rate 84 no interval abnormalities No STEMI No priors available for comparison
[2025-07-15] MEDS: MORPHine IR 15 MG TAB, 4 TABS/BTL PO (16:25)
[2025-07-15] MEDS: Sulfameth/Trimeth DS, 2 TABS/BTL 1 TAB PO (16:27)
[2025-07-15] MEDS: Cephalexin 500 MG CAP, 4 CAPS/BTL PO (16:28)
== END 2025-07-15 16:47 | disposition home or self-care (01) ==
PROVIDERS: Emergency Provider Emergency Medicine; PCP Family Medicine
DX: I47.9 Paroxysmal tachycardia, unspecified (principal); E11.622 Type 2 diabetes mellitus with other skin ulcer; L97.221 Non-pressure chronic ulcer of left calf limited to breakdown of skin; L97.321 Non-pressure chronic ulcer of left ankle limited to breakdown of skin
CPT/HCPCS: 99284 ×2; 96374; 80053; 85652; 93005; 73590; 73610; 83735; 85025; 86140; 93010; J3010; J3480

== ENCOUNTER 2025-07-18 23:17 | Inpatient (IN) | payer BC, MEDICARE, SELFPAY ==
[2025-07-18 23:25] VITALS: BP 162/79; PULSE 92; RESP 20; TEMP 36.5; O2SAT 95
--- NOTE | 2025-07-18 23:38 | ED.GENADUL_ITS ---
Discharge Plan Disposition Patient Disposition: Admit to [facility] Condition: Fair Discharge Details Clinical Impression: Diabetic ankle ulcer, Diabetic ulcer of calf, Hypokalemia, Hyponatremia Primary Care Provider: Lesley Henriquez V ED Provider: Rian Garvey [place] Meds and New Rx's Prescriptions: No Action amlodipine 10 mg tablet 10 mg PO DAILY multivitamin capsule 1 cap PO DAILY hydrochlorothiazide 25 mg tablet 25 mg PO DAILY Bio-K plus 50 billion cell capsule,delayed release(DR/EC) 1 cap PO DAILY Qty: 30 0RF cephalexin 500 mg capsule 500 mg PO QID 10 Days Qty: 40 0RF sulfamethoxazole-trimethoprim [Bactrim DS] 800-160 mg tablet 1 tab PO Q12H 10 Days Qty: 20 0RF Morphine Ir, 4 Tabs/Btl [Msir, 4 Tabs/Btl] 15 mg PO DISPENSE Qty: 0 0RF potassium chloride 10 mEq capsule, extended release See Rx Instructions .ROUTE .COMPLEX Patient Comments: TAKE 1 CAPSULE BY MOUTH EVERY DAY Rx Instructions: 10 mEq orally every other day per patient report losartan 100 mg tablet 100 mg PO DAILY Patient Comments: TAKE 1 TABLET BY MOUTH EVERY DAY HPI General Mode of arrival: ambulatory . Date/Time Provider Initiated Documentation: 07/18/25 23:38 . Limitations to Documentation: no limitations . Information obtained by: patient, RN/MD and RN notes reviewed . HPI Narrative: Patient presents to ED with increased pain and swelling to the right distal leg and foot. Patient seen here on the and started on Keflex and Bactrim for wounds involving the right lateral ankle and posterior calf. Patient is having increased pain and has to keep her foot dependent to manage the pain. Likely why there is more swelling, however, there is some increased redness associated with the calf ulcerations and increasing pain with ambulation. She has been taking antibiotic as directed. She denies having fever, chills, weakness, vomiting or diarrhea. Came in for recheck given worsening pain and swelling. Related Data Home Medications ?Medication ?Instructions ?Recorded ?Confirmed amlodipine 10 mg tablet 10 mg PO DAILY 04/04/1907/03 multivitamin 1 cap PO DAILY 04/04/1907/03 hydrochlorothiazide 25 mg tablet 25 mg PO DAILY 07/18/25 losartan 100 mg tablet 100 mg PO DAILY 03/09/21 potassium chloride 10 mEq See Rx Instructions .Route . COMPLEX 03/09/21 07/18/25 capsule,extended release L. acidophilus,casei,rhamnosus 50 1 cap PO DAILY #30 c aps 03/14/21 07/18/25 billion cell capsule,delayed release (Bio-K plus) MORPHine IR, 4 tabs/btl [MSIR, 4 15 mg PO DISPENSE ##0 07/15/25 07/18/25 tabs/btl] cephalexin 500 mg capsule 500 mg PO QID 10 days #40 ca ps 07/15/25 07/18/25 sulfamethoxazole 800 1 tab PO Q12H 10 days #20 ta bs 07/15/25 07/18/25 mg-trimethoprim 160 mg tablet (Bactrim DS) Previous Rx's ?Medication ?Instructions ?Recorded L. acidophilus,casei,rhamnosus 50 1 cap PO DAILY #30 c aps 03/14/21 billion cell capsule,delayed release (Bio-K plus) MORPHine IR, 4 tabs/btl [MSIR, 4 15 mg PO DISPENSE ##0 07/15/25 tabs/btl] cephalexin 500 mg capsule 500 mg PO QID 10 days #40 ca ps 07/15/25 sulfamethoxazole 800 1 tab PO Q12H 10 days #20 ta bs 07/15/25 mg-trimethoprim 160 mg tablet (Bactrim DS) Allergies Allergy/AdvReac Type Severity Reaction Status Date / Time No Known Allergies Allergy Unverified 07/18/25 23:29 General Stated Complaint: RashLesion MELISSA: 3 Exam Narrative Exam Narrative: Const: WDWN female in NAD. VS per triage. HEENT: NC/AT. Normal facial exam. Neck: Supple. Trachea midline. Lungs: Normal respiratory effort. Cor: RRR. Good DP pulses. Neuro: A+O x 3. Normal speech, mentation. Cranial nerves II - XII grossly intact. No gross motor or sensory deficit. Ext: No C/C. RLE with pitting edema of foot and brawny edema of distal extremity to just below the knee. Large lateral malleoli ulceration with surrounding erythema consistent with inflammation and marked fibrinous degradation product in the base. 2 ulcerations to the back mid calf area. Both about quarter size with increased erythema compared to previous visit as well as significant fibrinous degradation products. Course Vital Signs Vital signs: Vital Signs Temperature 97.7 F 07/18/25 23:25 Pulse 92 H 07/18/25 23:25 Respiratory Rate 20 07/18/25 23:25 Blood Pressure 162/79 H 07/18/25 23:25 Pulse Oximetry 95 07/18/25 23:25 Temperature 97.7 F 07/18/25 23:25 Pulse 92 H 07/18/25 23:25 Respiratory Rate 20 07/18/25 23:25 Blood Pressure 162/79 H 07/18/25 23:25 Blood Pressure Position Sitting 07/18/25 23:25 Pulse Oximetry 95 07/18/25 23:25 Oxygen Delivery Method Room Air 07/18/25 23:25 Oxygen Flow Rate 0 07/18/25 23:25 Medical Decision Making Patient returns to ED with increased pain and swelling despite oral antibiotics for ulcerations involving the right lower extremity. Patient is a diabetic. Denies fever or systemic symptoms per se. Ulcerations on the calf with increasing erythema compared to previous visit per Dr. Kaye who is still here in the ED this evening. Labs and x-rays from 3 days ago were overall reassuring. Now given the increased erythema, swelling, pain more concern for deeper infection. Hemodynamically she looks well. Will plan to place IV and repeat labs. Will cover with Unasyn and vancomycin. Will likely need admission to hospitalist service for wound care, consideration of MRI as well as ultrasound though I do not think DVT is the problem, more likely all infectious in nature. Patient's white count and sed rate have come down to high normal. C-reactive protein has gone up. She continues to be hypokalemic but surprisingly is also found to be hyponatremic tonight. I repeated the BMP to confirm as she has not had hyponatremia in the past. This is not pseudohyponatremia as her glucose is in the upper 100 range only. She has required a second dose of morphine for pain. Case discussed with hospitalist for admission for further evaluation and management. Medical Records Medical records reviewed: Yes I reviewed the patient's medical records. Lab Data Lab results reviewed: Yes I reviewed the patient's lab results. Lab results narrative: see [facility] All Active Problems (Updated 07/19/25 @ 01:46 by Rian Garvey MD) Hyponatremia (Acute) Tachycardia, paroxysmal (Acute) Diabetic ulcer of calf (Acute) Diabetic ankle ulcer (Acute) Diabetes mellitus type 2 in obese (Acute) Hypokalemia (Acute) Discharge planning issues (Acute) DVT prophylaxis (Acute) COPD, mild (Chronic) Hypertension (Chronic) Cat bite (Acute) Cat bite of right hand (Acute) Cat bite of left hand with infection (Acute) Leg wound, right (Acute) Medical History (Updated 07/19/25 @ 01:46 by Rian Garvey MD) Seasonal affective disorder Depression Hyperlipidemia Tobacco use disorder Pap smear vag w ASC-US Hemorrhoids Bilateral calf pain Situational anxiety Low back pain Back pain with radiculopathy Surgical History (Updated 03/10/21 @ 13:14 by Carlene Real MD) History of back surgery Family History (Updated 03/10/21 @ 13:18 by Carlene Real MD) Mother Stroke Diabetes Hypertension Father Stroke Hypertension Cancer prostate cancer Sister Cancer tongue/throat cancer (smoker) Social History (Updated 03/10/21 @ 13:19 by Carlene Real MD) Smoking/Tobacco Use Status: Current every day Tobacco Type: cigarettes Smoking packs per day: 0.5 Smoking cigarettes per day: 10.0 Years smoked: 35 Smoking pack-years: 17.50 Tobacco: How many years used: 35 Counseling given: provider counseling and support medications Smoking risk assessment performed?: Yes Alcohol Intake: current Alcohol Intake frequency: 0-2 drinks per day Drug use: Never Substance use type: does not use Current gender identity: female Do you feel safe at home: Yes Do you feel safe in your relationship?: Yes PAWSS Have you Been Recently Intoxicated or Drunk Within the Last 30 days?: No Have you Ever Experienced Previous Episodes of Alcohol Withdrawal?: No Have you ever Experienced Withdrawal Seizures?: No Have you ever Experienced Delirium Tremens(DT)s?: No Have you ever undergone Alcohol Rehabilitation Treatment (i.e, inpt ot outpatient treatment programs)?: No Have you ever Experienced Blackouts?: No Have you ever Combined Alcohol with other Downers within the last 90 days?: No Have you ever Combined Alcohol with any other Substance of Abuse during the last 90 days?: No Positive Blood Alcohol level on Presentation? [PCS.BAL]: No Evidence of Increased Autonomic Activity (i.e. HR>120, tremor, sweating, agitation, nausea)?: No Result: 0
[2025-07-19] VITALS (42 sets, daily range): BP systolic 119–158; BP diastolic 62–84; PULSE 65–91; RESP 9–23; TEMP 36.2–37; O2SAT 89–97
[2025-07-19] MEDS: MORPHine 4 MG/ML SYR IVP (00:28)
[2025-07-19] MEDS: AMPICILLIN/SULBACTAM 3 GM in Normal Saline 100 ML IVPB ×4 (00:33→18:24)
[2025-07-19] MEDS: Ondansetron 4 MG/2 ML VIAL IVP (00:34)
[2025-07-19 00:42] LABS: Abs Immature Grans 0.05 10^3/uL (0.0-0.06); HCT 36.0 % (36.0-46.0); HGB 12.6 g/dL (11.2-15.7); Immature Grans % 0.5 %; MCH 29.8 pg (27.0-33.0); MCHC 35.0 % (32.0-36.0); MCV 85 fL (80-95); MPV 9.5 fL (8.0-11.0); Platelet Count 243 10^3/uL (130-400); RBC 4.23 10^6/uL (3.93-5.22); RDW 13.0 % (11.7-14.6); RDW-SD 40.1 fL; WBC 9.90 10^3/uL (4.4-10.8)
[2025-07-19 00:43] LABS: ESR 27 mm/hr (0-30)
[2025-07-19 00:55] LABS: Anion Gap 9.8 mmol/L (3-11); BUN 9 mg/dL (7-18); C-Reactive Protein 1.65 mg/dL (<or=0.5); CO2 29.2 mmol/L (21.0-32.0); Calcium 9.2 mg/dL (8.5-10.1); Chloride 88 mmol/L (98-107); Estimated GFR 70.51 (mL/min/1.73m2); Glucose 172 mg/dL (74-106); Potassium 3.0 mmol/L (3.5-5.1); Sodium 127 mmol/L (136-145)
[2025-07-19] MEDS: MORPHine 10 MG/ML VIAL 6 MG IVP (01:12)
[2025-07-19 01:33] LABS: Anion Gap 9.8 mmol/L (3-11); BUN 10 mg/dL (7-18); CO2 29.2 mmol/L (21.0-32.0); Calcium 8.9 mg/dL (8.5-10.1); Chloride 89 mmol/L (98-107); Estimated GFR 70.51 (mL/min/1.73m2); Glucose 169 mg/dL (74-106); Sodium 128 mmol/L (136-145)
[2025-07-19 01:34] LABS: Potassium 2.9 mmol/L (3.5-5.1)
--- NOTE | 2025-07-19 02:09 | W.PM.HP.N ---
Date of service: 07/19/25 Time of Service: 02:10 Assessment and Plan Assessment and plan (1) Diabetic ankle ulcer: Status: Acute Assessment and plan: Continue with Vanco and Unasyn started in the ED. Placed in wound care consult and consider general surgery consult for repeat wound culturing. The patient has been on Keflex as well as Bactrim over the last 48 to 72 hours which might make the results not entirely correct. I have also placed an order for a EVELIA to assess vascular flow. (2) Diabetic ulcer of calf: Status: Acute Assessment and plan: As above (3) Hyponatremia: Status: Acute Assessment and plan: Rehydrate and check sodium in the a.m. Patient asymptomatic (4) Diabetes mellitus type 2 in obese: Status: Acute Assessment and plan: Controlled with diet and exercise. Her most recent A1c which was approximately 4 months ago showed a value of 7.2. Would consider starting oral medications but will defer to the oncoming attending. (5) Tobacco use disorder: Assessment and plan: Did recommend cessation. Patient did not want any nicotine replacement therapy. I did tell her that continued smoking will decrease her chance of having appropriate wound healing. Patient be on DVT prophylaxis with Lovenox History of Present Illness History of Present Illness Chief Complaint: RLE pain Narrative: This is a 65-year-old female who was recently seen in the hospital on 15 July for what appeared to be cellulitis. Patient was started on Bactrim as well as Keflex and states that she has been taking these medications as prescribed. Unfortunately the patient started having worsening right lower extremity pain at the site of her infection and came back to the ED for further evaluation. While she was in the ED laboratory work was performed and did show some hyponatremia as well as hypokalemia. The patient does take hydrochlorothiazide. Considering her worsening pain the patient was started on broad-spectrum antibiotics including Vanco and Unasyn. Patient states that since the start of IV antibiotics her swelling and pain has gone down significantly. I was asked to admit the patient for wound cultures and care as well as IV antibiotics. On my discussion with the patient, she states that she does have the diagnosis of diabetes but is controlled with diet and exercise only. Patient does endorse smoking approximately one half a pack of cigarettes a day. Review of Systems All systems reviewed & are unremarkable except as noted in HPI and below PFSH All Active Problems (Updated 07/19/25 @ 01:46 by Rian Garvey MD) Hyponatremia (Acute) Tachycardia, paroxysmal (Acute) Diabetic ulcer of calf (Acute) Diabetic ankle ulcer (Acute) Diabetes mellitus type 2 in obese (Acute) Hypokalemia (Acute) Discharge planning issues (Acute) DVT prophylaxis (Acute) COPD, mild (Chronic) Hypertension (Chronic) Cat bite (Acute) Cat bite of right hand (Acute) Cat bite of left hand with infection (Acute) Leg wound, right (Acute) Medical History (Updated 07/19/25 @ 01:46 by Rian Garvey MD) Seasonal affective disorder Depression Hyperlipidemia Tobacco use disorder Pap smear vag w ASC-US Hemorrhoids Bilateral calf pain Situational anxiety Low back pain Back pain with radiculopathy Surgical History (Updated 03/10/21 @ 13:14 by Carlene Real MD) History of back surgery Family History (Updated 03/10/21 @ 13:18 by Carlene Real MD) Mother Stroke Diabetes Hypertension Father Stroke Hypertension Cancer prostate cancer Sister Cancer tongue/throat cancer (smoker) Social History (Updated 03/10/21 @ 13:19 by Carlene Real MD) Smoking/Tobacco Use Status: Current every day Tobacco Type: cigarettes Smoking packs per day: 0.5 Smoking cigarettes per day: 10.0 Years smoked: 35 Smoking pack-years: 17.50 Tobacco: How many years used: 35 Counseling given: provider counseling and support medications Smoking risk assessment performed?: Yes Alcohol Intake: current Alcohol Intake frequency: 0-2 drinks per day Drug use: Never Substance use type: does not use Current gender identity: female Do you feel safe at home: Yes Do you feel safe in your relationship?: Yes Meds Allergies and Home Medications Allergies Allergy/AdvReac Type Severity Reaction Status Date / Time No Known Allergies Allergy Unverified 07/18/25 23:29 Home Medications ?Medication ?Instructions ?Recorded ?Confirmed ?Type amlodipine 10 mg tablet 10 mg PO DAILY 04/04/19 07/18/25 History multivitamin 1 cap PO DAILY 04/04/19 07/18/25 History hydrochlorothiazide 25 mg tablet 25 mg PO DAILY 04/17/20 07/18/25 History losartan 100 mg tablet 100 mg PO DAILY 03/09/21 07/18/25 History potassium chloride 10 mEq See Rx Instructions .Route .COMPLEX 03/09/21 07/18/25 History capsule,extended release L. acidophilus,casei,rhamnosus 50 1 cap PO DAILY #30 caps 03/14/21 07/18/25 Rx billion cell capsule,delayed release (Bio-K plus) MORPHine IR, 4 tabs/btl [MSIR, 4 15 mg PO DISPENSE ##0 07/15/25 07/18/25 Rx tabs/btl] cephalexin 500 mg capsule 500 mg PO QID 10 days #40 caps 07/15/25 07/18/25 Rx sulfamethoxazole 800 1 tab PO Q12H 10 days #20 tabs 07/15/25 07/18/25 Rx mg-trimethoprim 160 mg tablet (Bactrim DS) Exam Narrative Exam Narrative: HEENT-normocephalic atraumatic mucous membranes moist oropharynx is clear Neck-no lymphadenopathy no JVD no thyromegaly Cardiovascular-regular rate and rhythm no murmur gallop Lungs-clear to auscultation bilaterally with good air exchange 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 Patient does have palpable pulses. Results Labs 07/19/25 00:32 07/19/25 01:15 Labs: Laboratory Results - last 24 hr 07/19/25 07/19/25 00:32 01:15 WBC 9.90 RBC 4.23 Hgb 12.6 Hct 36.0 MCV 85 MCH 29.8 MCHC 35.0 RDW 13.0 Plt Count 243 MPV 9.5 Immature Gran % 0.5 Neutrophils % 77.7 Lymphocytes % 11.7 Monocytes % 5.5 Eosinophils % 4.1 Basophils % 0.5 Nucleated RBC % 0.0 Absolute Neutrophils 7.69 H Absolute Lymphocytes 1.16 L Absolute Monocytes 0.54 Absolute Eosinophils 0.41 Absolute Basophils 0.05 ESR 27 VBG Lactate 1.5 Sodium 127 L 128 L Potassium 3.0 L 2.9 L* Chloride 88 L 89 L Carbon Dioxide 29.2 29.2 Anion Gap 9.8 9.8 BUN 9 10 Creatinine 0.9 0.9 Est GFR (CKD-EPI 2020) 70.51 70.51 Glucose 172 H 169 H Calcium 9.2 8.9 C-Reactive Protein 1.65 H Last Vital Signs Temp 36.5 C 07/18/25 23:25 Pulse 92 H 07/18/25 23:25 Resp 20 07/18/25 23:25 BP 162/79 H 07/18/25 23:25 Pulse Ox 95 07/18/25 23:25 PAWSS Have you Been Recently Intoxicated or Drunk Within the Last 30 days?: No Have you Ever Experienced Previous Episodes of Alcohol Withdrawal?: No Have you ever Experienced Withdrawal Seizures?: No Have you ever Experienced Delirium Tremens(DT)s?: No Have you ever undergone Alcohol Rehabilitation Treatment (i.e, inpt ot outpatient treatment programs)?: No Have you ever Experienced Blackouts?: No Have you ever Combined Alcohol with other Downers within the last 90 days?: No Have you ever Combined Alcohol with any other Substance of Abuse during the last 90 days?: No Positive Blood Alcohol level on Presentation? [PCS.BAL]: No Evidence of Increased Autonomic Activity (i.e. HR>120, tremor, sweating, agitation, nausea)?: No Result: 0 Time Spent Time spent with Patient: 40-54 minutes Time was spent: preparing to see the patient(eg.review tests), obtaining and/or reviewing separately otained hiistory, ordering medications,tests, procedures, referring, communicating with other health primary care nurse, indepentently interpreting results, counseling the patient and care coordination
[2025-07-19] MEDS: MORPHine 2 MG/ML SYR IVP ×4 (04:26→16:59)
[2025-07-19] MEDS: Acetaminophen 325 MG TAB PO ×4 (04:27→19:27)
[2025-07-19] MEDS: Normal Saline Flush 10 ML SYR IVP ×6 (04:28→19:18)
[2025-07-19] MEDS: POTASSIUM CHLORIDE 10 MEQ/100 ML BAG 100 MEQ IV_INF ×2 (04:38→06:11)
[2025-07-19 07:07] LABS: Abs Immature Grans 0.04 10^3/uL (0.0-0.06); HCT 36.5 % (36.0-46.0); HGB 12.9 g/dL (11.2-15.7); Immature Grans % 0.5 %; MCH 30.4 pg (27.0-33.0); MCHC 35.3 % (32.0-36.0); MCV 86 fL (80-95); MPV 9.4 fL (8.0-11.0); Platelet Count 225 10^3/uL (130-400); RBC 4.25 10^6/uL (3.93-5.22); RDW 13.1 % (11.7-14.6); RDW-SD 40.4 fL; WBC 7.64 10^3/uL (4.4-10.8)
[2025-07-19 07:36] LABS: ALT 35 U/L (14-59); AST 27 U/L (15-37); Albumin 3.4 g/dL (3.4-5.0); Alkaline Phosphatase 73 U/L (46-116); Anion Gap 7.5 mmol/L (3-11); BUN 7 mg/dL (7-18); Bilirubin, Total 0.4 mg/dL (0.2-1.0); CO2 30.5 mmol/L (21.0-32.0); Calcium 8.8 mg/dL (8.5-10.1); Chloride 93 mmol/L (98-107); Estimated GFR 70.51 (mL/min/1.73m2); Glucose 135 mg/dL (74-106); Potassium 3.3 mmol/L (3.5-5.1); Sodium 131 mmol/L (136-145); Total Protein 6.7 g/dL (6.4-8.2)
[2025-07-19] MEDS: Losartan 50 MG TAB 100 MG PO (07:48)
[2025-07-19] MEDS: oxyCODONE 5 MG TAB PO (07:48)
[2025-07-19] MEDS: Lactobacillus Acidophilus CAP 1 CAP PO (07:49)
[2025-07-19] MEDS: Enoxaparin 40 MG/0.4 ML SYR SC (07:49)
[2025-07-19] MEDS: amLODIPine 10 MG TAB PO (07:49)
[2025-07-19] MEDS: Multivitamin TAB 1 TAB PO (07:49)
--- NOTE | 2025-07-19 08:11 | INITIAL_ITS ---
Date of service: 07/19/25 Time of Service: 08:11 Care Management Initial Assmt Initial Assessment Reason for Hospitalization: Diabetic Ulcers Functional Status/Living Situation Patient Presentation: Tita is admitted with diabetic ulcers of the right leg and worsening pain, failed outpatient therapy of Keflex and Bactrim. Wound and PT consults are ordered. She is on IV ABX (Vanco and Unasyn.) She is on Morphine and oxycodone for pain control, however patient notes hasn't been fully effective. She states that returns to a 10/10 before she is due for her next dose. At baseline Roxanna calero drives and is active and independent. 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 She has a strong support system, including her daughter Jackie who lives next door, her parents who live down the road and her son who visits weekly. Patient also notes having many friends living nearby. She is planning to discharge home via private vehicle once medically ready. Town of Residence: [place], [place] Resides with: Alone Significant Other/Family: Local Natural Supports: Daughter Jackie lives next door Parents lives down the road Son Damir stops by every Thursday Patient also has many friends that live closeby. Employment Status: Employed Instrumental Activities of Daily Living (ADLs): Independent Medications Medication Management: No Issues/Barriers identified Physical Functioning/Mobility Assistive Device: None Advance Directives Advance Directives: Do you have an Advance Directive: N , 15:20 AD On File at [facility]: N 01/14/13, 09:02 Date Asked 07/19/25 Today, 02:41 AD Date Reviewed COLST On File at [facility] No 07/18/25, 23:22 COLST Date Scanned Code Status Resuscitation Status Full Code Portal Pt does not currently have a portal and education provided: Yes Insurance Coverage/Financial Issues Insurance: BC/BS Out of State - [id number] Medicare Part A Only - [id number] Care Team Visit Care Team Role Provider Type Reyes Wallace MD [facility] STAFF PHYSICIAN Lesley Henriquez MD Primary Care Provider [facility] STAFF PHYSICIAN Natividad Ross Other Providers OTHER Rian Garvey MD Emergency Provider [facility] STAFF PHYSICIAN Rian Storey MD Admit Provider [facility] STAFF PHYSICIAN Attending Provider Discharge Potential Discharge Needs: PCP F/U Appt Anticipated Barriers to Discharge: None Identified Patient/Family Education Needs: Review discharge instructions, discuss Ask Me Three Transportation: Private vehicle Plan: PT/Wound consults are pending. Patient is also on IV ABX and receiving pain management. Odette will likely be discharged home once medically ready for discharge. She will follow up with her community providers and continue per her discharge plan of care. CM will continue to support Odette and her discharge planning needs. Social Determinants of Health Screening Social Determinants of health last assessed in clinic: 07/19/25 Will the Patient Participate in the Screening?: Yes Do you worry about having a steady place to live?: no Problems where you live: no known problems In the past 12 months, have you had to go without electric, gas, oil or water in your home?: no 1. Within the past 12 months, we worried whether our food would run out before we got money to buy more.: Never true 2. Within the past 12 months, the food we bought just didn't last and we didn't have money to get more.: Never true Has lack of transportation kept you from medical appointments or from doing th ings needed for daily living?: no Has anyone in your life made you feel unsafe or unsupported?: no How hard is it for you to pay for the very basics like food, housing, medical care, and heating? Would you say it is:: Somewhat hard Do you want help finding or keeping work or a job?: I do not need or want help If for any reason you need help with day-to-day activities such as bathing, preparing meals, shopping, managing finances, etc., do you get the help you need?: I get all the help I need How often do you feel lonely or isolated from those around you?: Never Do you speak a language other than Yakut at home?: No Does the patient want assistance with any of the above?: No Health Related Social Needs Health related social needs: problems related to housing/economic circumstances (Z59.89) Health related social needs details: Pt reports that finances are tight at times, but she is able to afford the things she needs. PFSH All Active Problems (Updated 07/19/25 @ 01:46 by Rian Garvey MD) Hyponatremia (Acute) Tachycardia, paroxysmal (Acute) Diabetic ulcer of calf (Acute) Diabetic ankle ulcer (Acute) Diabetes mellitus type 2 in obese (Acute) Hypokalemia (Acute) Discharge planning issues (Acute) DVT prophylaxis (Acute) COPD, mild (Chronic) Hypertension (Chronic) Cat bite (Acute) Cat bite of right hand (Acute) Cat bite of left hand with infection (Acute) Leg wound, right (Acute) Medical History (Updated 07/19/25 @ 01:46 by Rian Garvey MD) Seasonal affective disorder Depression Hyperlipidemia Tobacco use disorder Pap smear vag w ASC-US Hemorrhoids Bilateral calf pain Situational anxiety Low back pain Back pain with radiculopathy Surgical History (Updated 03/10/21 @ 13:14 by Carlene Real MD) History of back surgery Family History (Updated 03/10/21 @ 13:18 by Carlene Real MD) Mother Stroke Diabetes Hypertension Father Stroke Hypertension Cancer prostate cancer Sister Cancer tongue/throat cancer (smoker) Social History (Updated 03/10/21 @ 13:19 by Carlene Real MD) Smoking/Tobacco Use Status: Current every day Tobacco Type: cigarettes Smoking packs per day: 0.5 Smoking cigarettes per day: 10.0 Years smoked: 35 Smoking pack-years: 17.50 Tobacco: How many years used: 35 Counseling given: provider counseling and support medications Smoking risk assessment performed?: Yes Alcohol Intake: current Alcohol Intake frequency: 0-2 drinks per day Drug use: Never Substance use type: does not use Housing: house Current gender identity: female Do you feel safe at home: Yes Do you feel safe in your relationship?: Yes
[2025-07-19] MEDS: Gabapentin 300 MG CAP PO ×3 (10:18→19:27)
[2025-07-19] MEDS: oxyCODONE 5 MG TAB 10 MG PO ×3 (11:56→22:13)
--- NOTE | 2025-07-19 13:37 | PGE_ITS ---
Date of Service Date of service: 07/19/25 Time of Service: 13:46 Assessment and Plan Assessment and plan (1) Ulcer of right leg: Status: Acute Assessment and plan: She has multiple non-healing ulceratoins. Failed outpatient cephalexin and bactrim. Painful ulceration, not a/w lack of sensation, not c/w diabetic ulcers. Distributing c/w venous ulcers but no surrounding venous changes, and too well demarcated. Painful nature and appearence are more c/w arterial ulcers, but she has pulses and grossly good circulation. ABIs indicated but we don't do them here, plan as outpatient. Must consider other things like vasculitis, skin cancer, leichmeniasis (though typically not painful and no travel), pyogenic gangrenosum. Consider biopsy if continues to not heal. Continue IV antibiotic, vanco and cefepime with blood cultures pending. Surrounding cellulitis is improving. Added gabapentin to manage pain with opioids, NSAIDs, APAP. wound care consult pending (2) Hyponatremia: Status: Acute Assessment and plan: Improving with rehydration, follow. Patient asymptomatic (3) Diabetes mellitus type 2 in obese: Status: Acute Assessment and plan: Controlled with diet and exercise, prediabetic per patient, but A1c are clearly in DM range going back to 2020. That said, her LE sensation is intact. She should be on therapy, will try on metformin. (4) Tobacco use disorder: Assessment and plan: Did recommend cessation. Patient did not want any nicotine replacement therapy for now, she understands continued smoking will decrease her chance of having appropriate wound healing. Patient be on DVT prophylaxis with Lovenox Subjective Subjective Patient reports: tolerating a regular diet and voiding w/o difficulty; denies diarrhea, nausea, vomiting, shortness of breath or fever Interval history since last seen: She continues to have severe pain in the ulceration. These started about 6 weeks ago. Thinks the first one on ankle started with a cut, other on achilles was rubbing boot, and smaller third lesion was a bug bite. She has some chronic tingling in that leg related to disc disease, but has only had mild DM and no h/o diabetic neuropathy. 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 Patient does have palpable pulses distally, toes are warm with cap refill brisk. There is some surrounding swelling into the foot. The area distal to the lesions and the ulcers themselves are very tender. They are well defined with rolled borders and firm white exudate at bases. no surrounding venous stasis changes, no discharge. Objective Last Vital Signs Temp 36.9 C 07/19/25 12:14 Pulse 70 07/19/25 10:02 Resp 17 07/19/25 11:00 BP 122/62 07/19/25 10:02 Pulse Ox 89 L 07/19/25 06:01 Laboratory Results - last 24 hr 07/19/25 07/19/25 07/19/25 00:32 01:15 06:57 WBC 9.90 7.64 RBC 4.23 4.25 Hgb 12.6 12.9 Hct 36.0 36.5 MCV 85 86 MCH 29.8 30.4 MCHC 35.0 35.3 RDW 13.0 13.1 Plt Count 243 225 MPV 9.5 9.4 Immature Gran % 0.5 0.5 Neutrophils % 77.7 72.3 Lymphocytes % 11.7 13.4 Monocytes % 5.5 7.7 Eosinophils % 4.1 5.6 Basophils % 0.5 0.5 Nucleated RBC % 0.0 0.0 Absolute Neutrophils 7.69 H 5.52 Absolute Lymphocytes 1.16 L 1.02 L Absolute Monocytes 0.54 0.59 Absolute Eosinophils 0.41 0.43 Absolute Basophils 0.05 0.04 ESR 27 VBG Lactate 1.5 Sodium 127 L 128 L 131 L Potassium 3.0 L 2.9 L* 3.3 L Chloride 88 L 89 L 93 L Carbon Dioxide 29.2 29.2 30.5 Anion Gap 9.8 9.8 7.5 BUN 9 10 7 Creatinine 0.9 0.9 0.9 Est GFR (CKD-EPI 2020) 70.51 70.51 70.51 Glucose 172 H 169 H 135 H Calcium 9.2 8.9 8.8 Total Bilirubin 0.4 AST 27 ALT 35 Alkaline Phosphatase 73 C-Reactive Protein 1.65 H Total Protein 6.7 Albumin 3.4 PAWSS Have you Been Recently Intoxicated or Drunk Within the Last 30 days?: No Have you Ever Experienced Previous Episodes of Alcohol Withdrawal?: No Have you ever Experienced Withdrawal Seizures?: No Have you ever Experienced Delirium Tremens(DT)s?: No Have you ever undergone Alcohol Rehabilitation Treatment (i.e, inpt ot outpatient treatment programs)?: No Have you ever Experienced Blackouts?: No Have you ever Combined Alcohol with other Downers within the last 90 days?: No Have you ever Combined Alcohol with any other Substance of Abuse during the last 90 days?: No Positive Blood Alcohol level on Presentation? [PCS.BAL]: No Evidence of Increased Autonomic Activity (i.e. HR>120, tremor, sweating, agitation, nausea)?: No Result: 0 Time Spent with Patient Time Spent with Patient: >50 minutes Time was spent: preparing to see the patient(eg.review tests), obtaining and/or reviewing separately otained hiistory, ordering medications,tests, procedures, referring, communicating with other health plant health care technician, indepentently interpreting results, counseling the patient and care coordination
[2025-07-19] MEDS: VANCOMYCIN/WATER (PEG) 1 GM/200 ML BAG IVPB (14:55)
[2025-07-19] MEDS: Docusate Sodium 100 MG CAP PO (19:49)
[2025-07-19] MEDS: Nicotine 7 MG/24 HR PATCH TD (22:10)
[2025-07-19] MEDS: Potassium Chloride 20 MEQ TABCR 40 MEQ PO (22:10)
[2025-07-20] VITALS (20 sets, daily range): BP systolic 129–191; BP diastolic 64–76; PULSE 67–107; RESP 8–23; TEMP 36.8–37.4; O2SAT 94–99
--- NOTE | 2025-07-20 | DI.MRI_ITS ---
Exam(s) MR LOWER EXTREMITY RT WO/W EXAM: MR LOWER EXTREMITY RT WO/W CLINICAL HISTORY: Midfoot abscess. TECHNIQUE: Multiplanar multisequence MRI was performed. CONTRAST MATERIAL: IV Contrast: 19 mL of Dotarem contrast administered. COMPARISON: CT CT ABD AORTA CTA W RUNOFF from 07/20/2025 CR XR FOOT RT COMPLETE from 07/20/2025 FINDINGS: The examination is limited due to patient motion artifact. The hindfoot and ankle is not wholly included on this examination. BONES/JOINTS: No evidence of fracture. No evidence of bone lesion. No joint space narrowing identified. No joint effusion identified. LIGAMENTS: The medial and lateral collateral ligaments are intact. MUSCULOTENDINOUS STRUCTURES: Visualized portion of the planar fascia is unremarkable. The visualized intrinsic muscles and tendons of the foot are unremarkable. SOFT TISSUES: There is edema seen in the tissues on the dorsum of the foot. No focal fluid collection or enhancing fluid collection is seen to suggest an abscess. ENHANCEMENT: No suspicious enhancement identified. OTHER FINDINGS: None. IMPRESSION: 1. No evidence of abscess or osteomyelitis. 2. Edema seen in the soft tissues on the dorsum of the foot. DATA REPOSITORY:
--- NOTE | 2025-07-20 | DI.CT_ITS ---
Exam(s) CT ABD AORTA CTA W RUNOFF EXAM: CT ABD AORTA CTA W RUNOFF CLINICAL HISTORY: non-healing ulcers, pain, PAD?. TECHNIQUE: Imaging Protocol: Axial CT angiography was performed with multi- slice acquisition and multi-planar and/or 3D reconstructions. CONTRAST MATERIAL: Intravenous: Omnipaque 350 Contrast volume:100 mL Oral: No COMPARISON: No exams were available for comparison FINDINGS: Vascular Structures: Abdomen and pelvis: Celiac Caspian/SMA: There is no evidence of occlusion or significant stenosis of the celiac axis. There is marked narrowing of the proximal superior mesenteric artery (approximately 80 percent). (Series 5, image 52). Renal Arteries: No evidence of occlusion or significant stenosis. There is mild atherosclerosis at the origin of the right renal artery but no significant stenosis is seen. Aorta: No aneurysm, occlusion or significant stenosis. No dissection. Atherosclerotic calcification is seen but no significant stenosis. Iliac Arteries: There is marked narrowing of the origin of the right common iliac artery (80 percent; series 5, image 87). The right internal and external iliac arteries are patent. There is no significant stenosis seen in the left iliac arteries. Lower extremities: Right: Femoral: There is occlusion of the distal superficial femoral artery measuring approximately 10 cm in length. There is reconstitution of the right popliteal artery. Deep Femoral Artery: No evidence of occlusion or significant stenosis. Popliteal: No evidence of occlusion or significant stenosis. Knee Trifurcation: No evidence of occlusion or significant stenosis. Infrapopliteal arteries: The infrapopliteal arteries are attenuated but visualized. No occlusion is seen. Left: Femoral: No evidence of occlusion or significant stenosis. Deep femoral artery: No evidence of occlusion or significant stenosis. Popliteal: No evidence ofocclusion or significant stenosis. Knee Trifurcation: No evidence of occlusion or significant stenosis. Infrapopliteal arteries: No evidence of occlusion or significant stenosis. Soft Tissues: Lung bases: Clear. Liver: There is decreased attenuation of the liver which can be seen with fatty infiltration. No measurable mass. Portal, splenic and superior mesenteric veins: Unremarkable. Gallbladder and biliary tract: No radiodense calculus or dilation. Pancreas: Normal density, no abnormal calcifications or inflammatory process. Spleen: Normal. Kidneys: Normal size, contour and axis. No radiodense stones or obstructive uropathy. There is a simple cyst in the superior pole of the right kidney. No follow-up is recommended. Adrenal glands: No masses seen. Lymph nodes: Unremarkable. Bladder: The urinary bladder is incompletely distended limiting evaluation. No gross abnormality is present. Reproductive organs: There is a calcified uterine fibroid present. Bowel: No obstruction or bowel wall thickening. There is a 2.9 x 2.4 cm fat density well-circumscribed lesion in the stomach near the gastroesophageal junction suspicious for a lipoma. (Series 5, image 35). There is no evidence of appendicitis. Peritoneal cavity: No ascites, collection or mesenteric inflammatory response. No free air. Bones: Within normal limits for the patient's age. Soft tissues: There is a small fat containing left inguinal hernia. A small fat containing umbilical hernia is present. There is a soft tissue defect lateral to the right lateral malleolus suspicious for an ulceration. No cortical disruption is seen in the adjacent bone to suggest osteomyelitis at this time. There is edema seen in the soft tissues along the dorsum of the right foot. No focal fluid collection is seen at this time to suggest an abscess. IMPRESSION: 1. There is no acute abdominal or pelvic process. 2. Incidental finding seen in the abdomen and pelvis as described above. 3. Occlusion of the distal right superficial femoral artery with reconstitution of the right popliteal artery. The right infrapopliteal arteries are attenuated but visualized. 4. Marked narrowing of the origin of the right common iliac artery. 5. Marked narrowing of the proximal superior mesenteric artery. 6. Soft tissue defect lateral to the right lateral malleolus suspicious for an ulceration. No focal fluid collection is seen to suggest an abscess at this time. 7. Edema seen around the right ankle and along the dorsum of the right foot. RADIATION DOSE DELIVERED: 784.73mGy.cm Total DLP 784.73mGy.cm Total DLP DATA REPOSITORY: All CT scans at this facility are submitted to the National Radiology Data Registry (NRDR) Dose Index Registry (DIR) with the [employer] (ACR). RADIATION OPTIMIZATION: All CT scans at this facility use at least one of these dose optimization techniques: automated exposure control; mA and/or kV adjustment per patient size (includes targeted exams where dose is matched to clinical indication); or iterative reconstruction.
[2025-07-20] MEDS: MORPHine 2 MG/ML SYR IVP ×2 (00:41→06:52)
[2025-07-20] MEDS: AMPICILLIN/SULBACTAM 3 GM in Normal Saline 100 ML IVPB ×4 (00:41→18:05)
[2025-07-20] MEDS: VANCOMYCIN/WATER (PEG) 1 GM/200 ML BAG IVPB (01:28)
[2025-07-20] MEDS: oxyCODONE 5 MG TAB 10 MG PO ×4 (04:03→20:01)
[2025-07-20] MEDS: Acetaminophen 325 MG TAB PO (05:44)
[2025-07-20 05:45] LABS: Abs Immature Grans 0.06 10^3/uL (0.0-0.06); HCT 36.2 % (36.0-46.0); HGB 12.2 g/dL (11.2-15.7); Immature Grans % 0.8 %; MCH 29.8 pg (27.0-33.0); MCHC 33.7 % (32.0-36.0); MCV 88 fL (80-95); MPV 9.7 fL (8.0-11.0); Platelet Count 219 10^3/uL (130-400); RBC 4.10 10^6/uL (3.93-5.22); RDW 13.5 % (11.7-14.6); RDW-SD 43.7 fL; WBC 7.32 10^3/uL (4.4-10.8)
[2025-07-20] MEDS: Cyclobenzaprine 10 MG TAB PO (05:45)
[2025-07-20 06:01] LABS: ALT 46 U/L (14-59); AST 37 U/L (15-37); Albumin 3.1 g/dL (3.4-5.0); Alkaline Phosphatase 65 U/L (46-116); Anion Gap 8.5 mmol/L (3-11); BUN 7 mg/dL (7-18); Bilirubin, Total 0.3 mg/dL (0.2-1.0); CO2 28.5 mmol/L (21.0-32.0); Calcium 8.8 mg/dL (8.5-10.1); Chloride 98 mmol/L (98-107); Estimated GFR 70.51 (mL/min/1.73m2); Glucose 154 mg/dL (74-106); Potassium 3.6 mmol/L (3.5-5.1); Sodium 135 mmol/L (136-145); Total Protein 6.6 g/dL (6.4-8.2)
[2025-07-20] MEDS: Gabapentin 300 MG CAP PO ×3 (08:53→20:02)
[2025-07-20] MEDS: Losartan 50 MG TAB 100 MG PO (08:53)
[2025-07-20] MEDS: Potassium Chloride 20 MEQ TABCR 40 MEQ PO ×2 (08:53→20:01)
[2025-07-20] MEDS: Multivitamin TAB 1 TAB PO (08:53)
[2025-07-20] MEDS: amLODIPine 10 MG TAB PO (08:53)
[2025-07-20] MEDS: Docusate Sodium 100 MG CAP PO ×2 (08:53→17:47)
[2025-07-20] MEDS: Enoxaparin 40 MG/0.4 ML SYR SC (08:54)
[2025-07-20] MEDS: Lactobacillus Acidophilus CAP 1 CAP PO (08:54)
[2025-07-20] MEDS: Nicotine 7 MG/24 HR PATCH TD (09:02)
[2025-07-20] MEDS: Normal Saline Flush 10 ML SYR IVP ×3 (09:02→21:41)
[2025-07-20] MEDS: Aspirin 81 MG CHEW PO (09:19)
--- NOTE | 2025-07-20 10:10 | PDOC.CMPRO ---
Date of service: 07/20/25 Time of Service: 17:38 Care Management Progress Note Progress Note Text Progress Note Text: Odette continues to be closely monitored and treated for cellulites. Unfortunately, she was unavailable each time CM attempted to meet with her today and is currently sleeping. She underwent a foot x-ray, MRI and a CTA. A biopsy and culture were also obtained by Dr. Westfall. New [facility] PT is indicated, add RN for for wound care. She is expected to transition to the MS floor this evening. CM will follow. Discharge Potential Discharge Needs: PCP F/U Appt and Surgical F/U Appt Anticipated Barriers to Discharge: None Identified Patient/Family Education Needs: Review discharge instructions, discuss Ask Me Three Transportation: Private vehicle Plan: Odette will likely be discharged home with New [facility] RN/PT once medically ready for discharge. She will follow up with her community providers and continue per her discharge plan of care. CM will continue to support Odette and her discharge planning needs. Social Determinants of Health Screening Social Determinants of health last assessed in clinic: 07/20/25 Will the Patient Participate in the Screening?: Yes Do you worry about having a steady place to live?: no Problems where you live: no known problems In the past 12 months, have you had to go without electric, gas, oil or water in your home?: no 1. Within the past 12 months, we worried whether our food would run out before we got money to buy more.: Never true 2. Within the past 12 months, the food we bought just didn't last and we didn't have money to get more.: Never true Has lack of transportation kept you from medical appointments or from doing things needed for daily living?: no Has anyone in your life made you feel unsafe or unsupported?: no How hard is it for you to pay for the very basics like food, housing, medical care, and heating? Would you say it is:: Somewhat hard Do you want help finding or keeping work or a job?: I do not need or want help If for any reason you need help with day-to-day activities such as bathing, preparing meals, shopping, managing finances, etc., do you get the help you need?: I get all the help I need How often do you feel lonely or isolated from those around you?: Never Do you speak a language other than [place] at home?: No Does the patient want assistance with any of the above?: No Health Related Social Needs Health related social needs: problems related to housing/economic circumstances (Z59.89) Health related social needs details: Pt reports that finances are tight at times, but she is able to afford the things she needs.
--- NOTE | 2025-07-20 10:23 | W.PODCONSULT ---
Date of service: 07/20/25 Time of Service: 07:50 Assessment and Plan Assessment and plan (1) Ulcer of right leg: Status: Acute (2) Diabetic ankle ulcer: Status: Acute (3) Diabetic ulcer of calf: Status: Acute (4) Ischemic ulcer of right lower leg due to atherosclerosis: Status: Acute (5) Ulcer of right lower extremity with fat layer exposed: Status: Acute (6) Edema: Status: Acute Assessment and plan: Patient seen bedside, in tears due to pain to the right lower extremity, for right lower extremity ulcers. There are 3 ulcers total. 1 ulcer is located to the lower right lateral ankle. 2 ulcers to the posterior calf. These have a punched-out appearance consistent with arterial ulcers, the base is fully necrotic. She has severe rest pain. Skin is cool to touch. I am concerned about ischemic nature of these ulcers. I recommended and obtained EVELIA studies ankle ABIs were not performed however toe-brachial index to the right is 0.18, to the left it is 0.45. With TBI being 0.18 there is severe microvascular disease. This will delay healing. I did also recommend a CTA with runoff. This was evaluated this does not demonstrate any severe stenosis however, I do believe that her circulation is severely diminished. She will benefit from at least an angio with possible revascularization if she is able to see vascular. I recommend urgent transfer to [facility] for vascular surgery. I do suspect pyoderma gangrenosum as patient states that this wound has been getting worse with touch. However, we will have to see. At this time, she will benefit from a wound debridement from a standard wound standpoint however, due to high level of ischemia at this time, I will hold off. I am concerned about. I am still somewhat concerned about pyoderma gangrenosum which typically demonstrates pathergy and therefore also hesitant to debride the wound for that reason. Due to the appearance of the wound I recommended a biopsy, particularly since this wound has been present for prolonged duration of time. Patient was advised that if it is truly pyoderma gangrenosum it there is a chance that this wound will worsen with biopsy however, we would also see the same concept with an ischemic wound. Patient was given morphine and Ativan by the medicine team prior to the biopsy. I discussed the risks and benefits. She was advised that it may worsen the wound however, I do recommend a biopsy due to duration and appearance of the wound to further evaluate the wound. Patient consented. The area was cleansed in the usual aseptic manner. 3 mL of 1% lidocaine plain was injected at the site of the punch biopsy. 2 mm punch was used to obtain punch biopsy lesions. These were sent to pathology. Next, cultures were taken and sent. Patient has severe edema and pain to the right midfoot. I recommended an MRI with and without contrast. This was reviewed and there is no evidence for an abscess. She did report difficulty weightbearing, x-rays were ordered, taken and reviewed. No evidence for fractures or dislocations. No evidence for soft tissue emphysema. No evidence for foreign body. Recommendations: Transfer to [facility] for vascular consultation and possible procedure. Will also benefit from consultation with dermatology Thank you for allowing me to participate in this patient's care. Will continue to follow while in house. History of Present Illness History of Present Illness Chief Complaint: Ulcer right lower extremity, pain and swelling right midfoot Narrative: 65-year-old female patient with history of diabetes, hypertension, COPD with painful right lower extremity ulcers. Does also report pain to the right midfoot upon weightbearing. She states that she initially developed the right lateral malleolus wound from a shaving type slick scratch type lesion around the end of May, she did not think much of the wound since it felt like just a scratch from shaving however around mid June felt oh shit it is bigger than before so better start taking care of it I applied antibiotic ointment and a Band-Aid, it would sting and burn but the pain would stop. She states that over time around mid June she developed 2 more wounds at the back of the leg exactly where she previously had an ulcer which took about 6 to 9 months to heal. She states that for those previous right leg ulcers she had to go to wound care and the wound care doctor wanted to debrided however she did not tolerate and tried something else which eventually healed the wound. With respect to the current right ankle wound, she states that she has been soaking it and has felt better however once out of the water it dried and will tingle and burn. She is seen today with her right lower extremity tingling due to pain. States that she has pain to the right leg wounds with pressure as well as elevation unable to quite distinguish if it is both pressure as well as elevation which is causing pain. Does report difficulty weightbearing to the right midfoot which started about a week ago with the swelling. States that the swelling has been off and on. States that swelling goes down in the morning and worsens towards the end of the day. States she is unable to tolerate Medihoney as that causes pain. Denies active purulence from the area. Consults Consult date: 07/19/25 Requesting physician: Rian Storey Review of Systems Cardiovascular Comments: Nonpalpable pulses to the right lower extremity. Edema to the right lower extremity. Musculoskeletal Comments: Right foot pain PFSH All Active Problems (Updated 07/20/25 @ 12:08 by Corazon Westfall DPM) Edema (Acute) Ulcer of right lower extremity with fat layer exposed (Acute) Ischemic ulcer of right lower leg due to atherosclerosis (Acute) Ulcer of right leg (Acute) 3, ankle and calf Hyponatremia (Acute) Tachycardia, paroxysmal (Acute) Diabetic ulcer of calf (Acute) Diabetic ankle ulcer (Acute) Diabetes mellitus type 2 in obese (Acute) Discharge planning issues (Acute) DVT prophylaxis (Acute) Cat bite of left hand with infection (Acute) Cat bite of right hand (Acute) Cat bite (Acute) Leg wound, right (Acute) Hypertension (Chronic) COPD, mild (Chronic) Hypokalemia (Acute) Medical History Seasonal affective disorder Depression Hyperlipidemia Tobacco use disorder Pap smear vag w ASC-US Hemorrhoids Bilateral calf pain Situational anxiety Low back pain Back pain with radiculopathy Surgical History History of back surgery Family History Mother Stroke Diabetes Hypertension Father Stroke Hypertension Cancer prostate cancer Sister Cancer tongue/throat cancer (smoker) Social History Smoking/Tobacco Use Status: Current every day Tobacco Type: cigarettes Smoking packs per day: 0.5 Smoking cigarettes per day: 10.0 Years smoked: 35 Smoking pack-years: 17.50 Tobacco: How many years used: 35 Counseling given: provider counseling and support medications Smoking risk assessment performed?: Yes Alcohol Intake: current Alcohol Intake frequency: 0-2 drinks per day Drug use: Never Substance use type: does not use Housing: house Current gender identity: female Do you feel safe at home: Yes Do you feel safe in your relationship?: Yes Exam Extrem Other: Right extremity physical exam: Derm: Full-thickness ulcers(right lateral malleolus x 1, right posterior calf x 2) with a 100% necrotic base, violaceous/scaly borders, dry, severely tender to touch, minimal drainage, no surrounding erythema, there is edema. Skin is cool to touch and supple without any other ulcers or lesions. Unable to assess for crepitus or bogginess due to pain. Vascular: DP, PT pulses are not palpable to the right lower extremity, they are dopplerable however, there is pain with elevation pain is relieved by dependency. Skin is cool to touch, CFT is delayed to the toes. Hair growth absent to the foot however present to the calf. MSK: Pain noted to the right midfoot with difficulty weightbearing. No pain to the ankle. No pain to the heel. Results Last Vital Signs Temp 99.0 F 07/20/25 08:35 Pulse 88 07/20/25 08:35 Resp 17 07/20/25 08:35 BP 129/72 07/20/25 08:35 Pulse Ox 99 07/20/25 08:35 Labs 07/20/25 05:25 07/20/25 05:25 Labs: Laboratory Results - last 24 hr 07/20/25 05:25 WBC 7.32 RBC 4.10 Hgb 12.2 Hct 36.2 MCV 88 MCH 29.8 MCHC 33.7 RDW 13.5 Plt Count 219 MPV 9.7 Immature Gran % 0.8 Neutrophils % 70.0 Lymphocytes % 16.3 Monocytes % 8.2 Eosinophils % 4.2 Basophils % 0.5 Nucleated RBC % 0.0 Absolute Neutrophils 5.12 Absolute Lymphocytes 1.19 L Absolute Monocytes 0.60 Absolute Eosinophils 0.31 Absolute Basophils 0.04 Sodium 135 L Potassium 3.6 Chloride 98 Carbon Dioxide 28.5 Anion Gap 8.5 BUN 7 Creatinine 0.9 Est GFR (CKD-EPI 2020) 70.51 Glucose 154 H Calcium 8.8 Total Bilirubin 0.3 AST 37 ALT 46 Alkaline Phosphatase 65 Total Protein 6.6 Albumin 3.1 L
[2025-07-20] MEDS: Normal Saline - Diluent 50 ML VIAL IJ (11:02)
[2025-07-20] MEDS: Omnipaque 350 MG/ML 100 ML BTL IJ (11:03)
--- NOTE | 2025-07-20 11:10 | DI.RAD_ITS ---
Exam(s) XR FOOT RT COMPLETE EXAM: XR FOOT RT COMPLETE CLINICAL HISTORY: Ulcer/ fracture? midfoot pain. TECHNIQUE: 2D digital imaging was performed of the right foot. Four images were obtained. AP, oblique and lateral views were obtained. COMPARISON: No exams were available for comparison FINDINGS: BONES: No acute fracture is present. No bony destructive lesion is seen. There is an enthesophyte at the posterior calcaneus. There is a small plantar calcaneal spur. JOINTS: No dislocation present. The joint spaces are well maintained. SOFT TISSUE: There is soft tissue swelling in the midfoot. No soft tissue gas is seen. IMPRESSION: Soft tissue swelling of the midfoot. No soft tissue gas is seen. DATA REPOSITORY: RADIATION DOSE DELIVERED:
[2025-07-20] MEDS: MORPHine 4 MG/ML SYR IVP ×2 (12:01→15:50)
[2025-07-20] MEDS: Gadoterate meglumine 20 ML SYRINGE IVP (12:27)
--- NOTE | 2025-07-20 14:01 | PHA.ACLINAW ---
Renal Dosing Renal Dosing: BUN 7 mg/dL (7-18) 07/20/25 05:25 Creatinine 0.9 mg/dL (0.55-1.02) 07/20/25 05:25 Medications needing adjustments: Reviewed List of meds needing interventions: CrCl=62; no intervention needed Anticoagulation Anticoagulation: Hgb 12.2 g/dL (11.2-15.7) 07/20/25 05:25 Hct 36.2 % (36.0-46.0) 07/20/25 05:25 Plt Count 219 10^3/uL (130-400) 07/20/25 05:25 Creatinine 0.9 mg/dL (0.55-1.02) 07/20/25 05:25 DVT Prophylaxis: Reviewed (on enoxaparin) Opiate Usage Evaluate Pain Scale/Pains Meds: Reviewed Scheduled Bowel Reg ordered if on Opiates?: Yes Relevant Labs Relevant Labs: Hyponatremia improving with hydration ESR 27 mm/hr (0-30) 07/19/25 00:32 Sodium 135 mmol/L (136-145) L 07/20/25 05:25 Potassium 3.6 mmol/L (3.5-5.1) 07/20/25 05:25 Chloride 98 mmol/L (98-107) 07/20/25 05:25 C-Reactive Protein 1.65 mg/dL (<or=0.5) H 07/19/25 00:32 Electrolytes, C-Reactive P, ESR: Reviewed DM Control DM Control: fehwvws=370; A1C elevated in past-team plans to iniate therapy Glucose 154 mg/dL (74-106) H 07/20/25 05:25 DM Control: Reviewed Cardiac Review BP, HR, EF%: Reviewed QTc Review QTc: Reviewed List meds needing interventions: qtc 454 IV to PO Switch IV Medications: Reviewed Home Meds Home Med List reviewed: Reviewed Current Meds Current Medication Order Review: Reviewed Pharmacy Antibiotic Review Pharmacy Antibiotic Activity: Reviewed, no change Comments: ordered vanco level for 07/20 at 1400
[2025-07-20 14:57] LABS: Vancomycin, Trough 9.3 ug/mL (10.0-20.0)
--- NOTE | 2025-07-20 14:57 | PT.INIE ---
PT Notes Visit Reasons: Cellulitis Physical Therapy Inpatient Initial Evaluation Date: 07/20/2025 Referring Doctor: Dr. Storey PT Orders: PT CONSULT: PT evaluation and treatment Precautions: Fall risk, standard, awaiting podiatry recommendation for weightbearing to right lower extremity Patient Profile/Admitting Diagnosis: Patient is 65-year-old female presented to the ED with increased pain redness right lower extremity. 3 wounds noted on right lower leg to right calf 1 at ankle. Podiatry consulted recommended MRI for further workup. MRI results 1. No evidence of abscess or osteomyelitis. 2. Edema seen in the soft tissues on the dorsum of the foot. Podiatry consult completed with recommendation for biopsy of the wounds which was performed with results pending at this time. Podiatry also recommended transfer to [facility] for vascular consultation. PMHX: Edema (Acute) Ulcer of right lower extremity with fat layer exposed (Acute) Ischemic ulcer of right lower leg due to atherosclerosis (Acute) Ulcer of right leg (Acute) 3, ankle and calfHyponatremia (Acute) Tachycardia, paroxysmal (Acute) Diabetic ulcer of calf (Acute) Diabetic ankle ulcer (Acute) Diabetes mellitus type 2 in obese (Acute) Discharge planning issues (Acute) DVT prophylaxis (Acute) Cat bite of left hand with infection (Acute) Cat bite of right hand (Acute) Cat bite (Acute) Leg wound, right (Acute) Hypertension (Chronic) COPD, mild (Chronic) Hypokalemia (Acute) Medical History Seasonal affective disorder Depression Hyperlipidemia Tobacco use disorder Pap smear vag w ASC-US Hemorrhoids Bilateral calf pain Situational anxiety Low back pain Back pain with radiculopathy Surgical History History of back surgery Social History/Home Situation: Patient resides single-family one-story home 4 steps to enter with rail. Independent ambulation without assistive device independent ADLs Equipment Owned/DME: None Subjective: Patient reports reduction in pain when in dependent position however increased pain when attempts to weight-bear on right lower extremity Objective: [] General Observation: Female supine in bed with right lower extremity resting on stool next to bed. Telemetry in place Mental Status: Alert and oriented x 4, cooperative, agreeable to participate in eval, able to follow instructions Pain: 6/10 with attempt at standing ROM: [] BUE within normal limits LLE within normal limits Right LE hip and knee within normal limits ankle resting in neutral position Strength: [] BUE 5/5 LLE 5/5 RLE grossly hip and knee greater than equal to 3/5 ankle not tested secondary to pain Sensation: Diminished BLE Bed Mobility/Transfers: [] Supine to sit Independent Sit to stand SBA Stand to sit SBA Bed to chair SBA Gait: pt declined to attempt amb with FWW as she just returned from MRI and was in too much pain. Balance: [] Static Sitting: [] Normal Dynamic Sitting: Good Static Standing: Fair Dynamic Standing: Poor Special Tests: [] Mobility Limitations Standardized Measure [] [facility] 6 clicks Basic Mobility Inpatient Short Form: [] Raw Score: 18 CMS Score: 46.58% deficit Informed Consent/Education: Patient instructed in purpose of PT consult. Assessment: Patient presents with clinical signs and symptoms consistent with current/admitting diagnoses that have resulted to mobility limitations, gait instability, generalized weakness, and impairment of motor control as demonstrated by the following impairment level findings: 1. pain in right lower leg 2. Impaired standing balance 3. Limitation of joint range of motion in right ankle 4. Inability to tolerate weightbearing right lower extremity in sitting and standing 5. Impaired sensation right lower extremity Impairments are contributing to the following functional limitations: 1. Inability to safely ambulate without assistive device 2. Increase completion time for mobility ADL performance 3. Increased fall risk 4. Decline in transfers secondary to inability to tolerate weightbearing right lower extremity 5. Difficulty performing stairs Patient is assessed as a low complexity based on the following: History: 65-year-old female with impairment level findings, functional limitations, and past medical history as indicated above Examination: Demonstrable impairment in strength, balance, and mobility level with underlying impairments and functional limitations as documented above Presentation: Evolving Decision Making: Low Goals: 1. mod I transfer with LRD 2. Mod I ambulation 50 feet with LRD without report of increased pain in RLE 3. Sup 4 steps with rail and device to safely enter and exit home Plan of Care/Treatment Plan: 1-2x/day, 7 days/week x 1 week. Plan of care has been reviewed with the BANKING TEACHER providing the service under Physical Therapy direction. Initiate Physical Therapy intervention for strengthening, bed mobility, transfers, gait, stairs, balance training, use of assistive device. DISCHARGE RECOMMENDATIONS:Home with HHPT when medically appropriate with used of FWW to off weight RLE TREATMENT CODE/TIME: 27515/ [id number] Thank you for the opportunity to participate in the care of this patient. Martine Jones PT [facility]
--- NOTE | 2025-07-20 15:11 | PHA.ACLINAW ---
Renal Dosing Renal Dosing: BUN 7 mg/dL (7-18) 07/20/25 05:25 Creatinine 0.9 mg/dL (0.55-1.02) 07/20/25 05:25 Anticoagulation Anticoagulation: Hgb 12.2 g/dL (11.2-15.7) 07/20/25 05:25 Hct 36.2 % (36.0-46.0) 07/20/25 05:25 Plt Count 219 10^3/uL (130-400) 07/20/25 05:25 Creatinine 0.9 mg/dL (0.55-1.02) 07/20/25 05:25 Relevant Labs Relevant Labs: ESR 27 mm/hr (0-30) 07/19/25 00:32 Sodium 135 mmol/L (136-145) L 07/20/25 05:25 Potassium 3.6 mmol/L (3.5-5.1) 07/20/25 05:25 Chloride 98 mmol/L (98-107) 07/20/25 05:25 C-Reactive Protein 1.65 mg/dL (<or=0.5) H 07/19/25 00:32 DM Control DM Control: Glucose 154 mg/dL (74-106) H 07/20/25 05:25 Pharmacy Review Plan Plan: Vanco trough=9.3 on 07/20. Increased dose to 1.5g q12h. Recheck trough on 07/22 @0300.
[2025-07-20] MEDS: VANCOMYCIN/WATER (PEG) 1.5 GM/300 ML BAG IVPB (15:40)
[2025-07-20] MEDS: LORazepam 20 MG/10 ML VIAL IVP (15:49)
[2025-07-20] MEDS: Polyethylene Glycol 3350 17 GM PACKET PO (17:47)
--- NOTE | 2025-07-20 18:08 | W.PM.PROGNOT ---
Date of Service Date of service: 07/20/25 Time of Service: 18:08 Assessment and Plan Assessment and plan (1) Ulcer of right leg: Status: Acute Assessment and plan: She has multiple non-healing ulceratoins. Failed outpatient cephalexin and bactrim. Painful ulceration, not a/w lack of sensation, not c/w diabetic ulcers. Distributing c/w venous ulcers but no surrounding venous changes, and too well demarcated. Painful nature and appearence are more c/w arterial ulcers, but she has warm feet, hair on toes, good cap refills. CTA shows some PAD but not clearly critical Cannot tolerate ABIs but TBI 0.18 on right c/w severe PAD. Must consider other things like vasculitis, skin cancer, leichmeniasis (though typically not painful and no travel), and especially pyogenic gangrenosum. Biopsy done by Dr. Westfall today. Continue IV antibiotic, vanco and cefepime with blood cultures pending. Surrounding cellulitis is improving. Narrow 07/21 if cultures negative. Added gabapentin to manage pain with opioids, NSAIDs, APAP. Wound care as tolerated Plan to consult vascular to review above. (2) Peripheral arterial disease: Status: Acute Assessment and plan: As above. Started on ASA and atorvastatin. Get lipids. (3) Hyponatremia: Status: Acute Assessment and plan: Improved with rehydration, follow. Patient asymptomatic (4) Diabetes mellitus type 2 in obese: Status: Acute Assessment and plan: Controlled with diet and exercise, prediabetic per patient, but A1c are clearly in DM range going back to 2020. That said, her LE sensation is intact. She should be on therapy, metromin to start, but avoid for now with CTA done. ISS for now. (5) Tobacco use disorder: Assessment and plan: Did recommend cessation. Patient did not want any nicotine replacement therapy for now, she understands continued smoking will decrease her chance of having appropriate wound healing. Patient be on DVT prophylaxis with Lovenox Subjective Subjective Patient reports: still having pain, tolerating a regular diet and voiding w/o difficulty; denies diarrhea, nausea, vomiting, shortness of breath or fever Interval history since last seen: Events: seen by podiatry, had CTA/runoff, MRI, TBI, biopsy She still has a lot of pain in her right foot. Tolerating a little bit of dressing. Feels better when leg hanging below bed, worse when elevated. Exam Narrative Exam Narrative: GEN: Alert and oriented, NAD Cardiovascular-regular rate and rhythm no murmur gallop Lungs-clear to auscultation bilaterally with good air exchange no window repairer muscle use Abdomen-soft nontender nondistended Extremities- Less erythema around the ulcers, see Dr. Westfall note for photo of 3 ulcers, no change from yesterday Objective Last Vital Signs Temp 37.2 C 07/20/25 08:35 Pulse 67 07/20/25 13:34 Resp 19 07/20/25 10:01 BP 141/64 H 07/20/25 13:34 Pulse Ox 99 07/20/25 08:35 Laboratory Results - last 24 hr 07/20/25 07/20/25 05:25 14:10 WBC 7.32 RBC 4.10 Hgb 12.2 Hct 36.2 MCV 88 MCH 29.8 MCHC 33.7 RDW 13.5 Plt Count 219 MPV 9.7 Immature Gran % 0.8 Neutrophils % 70.0 Lymphocytes % 16.3 Monocytes % 8.2 Eosinophils % 4.2 Basophils % 0.5 Nucleated RBC % 0.0 Absolute Neutrophils 5.12 Absolute Lymphocytes 1.19 L Absolute Monocytes 0.60 Absolute Eosinophils 0.31 Absolute Basophils 0.04 Sodium 135 L Potassium 3.6 Chloride 98 Carbon Dioxide 28.5 Anion Gap 8.5 BUN 7 Creatinine 0.9 Est GFR (CKD-EPI 2020) 70.51 Glucose 154 H Calcium 8.8 Total Bilirubin 0.3 AST 37 ALT 46 Alkaline Phosphatase 65 Total Protein 6.6 Albumin 3.1 L Vancomycin Trough 9.3 L PAWSS Have you Been Recently Intoxicated or Drunk Within the Last 30 days?: No Have you Ever Experienced Previous Episodes of Alcohol Withdrawal?: No Have you ever Experienced Withdrawal Seizures?: No Have you ever Experienced Delirium Tremens(DT)s?: No Have you ever undergone Alcohol Rehabilitation Treatment (i.e, inpt ot outpatient treatment programs)?: No Have you ever Experienced Blackouts?: No Have you ever Combined Alcohol with other Downers within the last 90 days?: No Have you ever Combined Alcohol with any other Substance of Abuse during the last 90 days?: No Positive Blood Alcohol level on Presentation? [PCS.BAL]: No Evidence of Increased Autonomic Activity (i.e. HR>120, tremor, sweating, agitation, nausea)?: No Result: 0 Time Spent with Patient Time Spent with Patient: >50 minutes Time was spent: preparing to see the patient(eg.review tests), obtaining and/or reviewing separately otained hiistory, ordering medications,tests, procedures, referring, communicating with other health career development consultant, indepentently interpreting results, counseling the patient and care coordination
[2025-07-20] MEDS: Atorvastatin 40 MG TAB PO (20:00)
[2025-07-21] MEDS: AMPICILLIN/SULBACTAM 3 GM in Normal Saline 100 ML IVPB ×4 (00:17→18:14)
[2025-07-21] MEDS: oxyCODONE 5 MG TAB 10 MG PO ×4 (00:52→19:46)
[2025-07-21] MEDS: Acetaminophen 325 MG TAB PO ×2 (03:54→11:24)
[2025-07-21] MEDS: MORPHine 2 MG/ML SYR IVP ×3 (03:55→20:51)
[2025-07-21] MEDS: VANCOMYCIN/WATER (PEG) 1.5 GM/300 ML BAG IVPB ×2 (05:06→16:17)
[2025-07-21 06:56] VITALS: BP 165/70; PULSE 75; RESP 17; TEMP 36.7; O2SAT 97
[2025-07-21 07:20] LABS: Hemoglobin A1C 8.5 % (<5.7)
[2025-07-21 07:27] LABS: Calculated LDL 104 mg/dL (<100); Cholesterol 169 mg/dL (<200); HDL Cholesterol 29 mg/dL (>or=50); Triglyceride 181 mg/dL (<150)
[2025-07-21 07:45] VITALS: BP 160/74; PULSE 75; RESP 17; TEMP 36.8; O2SAT 97
[2025-07-21] MEDS: Losartan 50 MG TAB 100 MG PO (08:26)
[2025-07-21] MEDS: Enoxaparin 40 MG/0.4 ML SYR SC (08:26)
[2025-07-21] MEDS: amLODIPine 10 MG TAB PO (08:26)
[2025-07-21] MEDS: Potassium Chloride 20 MEQ TABCR 40 MEQ PO ×2 (08:26→19:47)
[2025-07-21] MEDS: Lactobacillus Acidophilus CAP 1 CAP PO (08:27)
[2025-07-21] MEDS: Aspirin 81 MG CHEW PO (08:27)
[2025-07-21] MEDS: Multivitamin TAB 1 TAB PO (08:27)
[2025-07-21] MEDS: Cyclobenzaprine 10 MG TAB PO (08:27)
[2025-07-21] MEDS: Gabapentin 300 MG CAP PO ×3 (08:27→19:48)
[2025-07-21] MEDS: Normal Saline Flush 10 ML SYR IVP ×5 (08:29→20:52)
[2025-07-21] MEDS: Nicotine 7 MG/24 HR PATCH TD (08:33)
--- NOTE | 2025-07-21 08:45 | PDOC.CMPRO ---
Date of service: 07/21/25 Time of Service: 08:45 Care Management Progress Note Progress Note Text Progress Note Text: Odette continues to be closely monitored and treated for cellulites. Additional medical work up and imaging was completed yesterday, and biopsy results are pending. Per provider, her circulation is abnormal and vascular is being contacted. Debridement is planned for Thursday if the patient remains inpatient. If she discharges prior, she will require New [facility] PT/ RN for for wound care. [facility] was notified. CM will follow. Discharge Potential Discharge Needs: PCP F/U Appt and Surgical F/U Appt Anticipated Barriers to Discharge: None Identified Patient/Family Education Needs: Review discharge instructions, discuss Ask Me Three Transportation: Private vehicle Plan: Odette will likely be discharged home with New [facility] RN/PT once medically ready for discharge. She will follow up with her community providers and continue per her discharge plan of care. CM will continue to support Odette and her discharge planning needs. Social Determinants of Health Screening Social Determinants of health last assessed in clinic: 07/21/25 Will the Patient Participate in the Screening?: Yes Do you worry about having a steady place to live?: no Problems where you live: no known problems In the past 12 months, have you had to go without electric, gas, oil or water in your home?: no 1. Within the past 12 months, we worried whether our food would run out before we got money to buy more.: Never true 2. Within the past 12 months, the food we bought just didn't last and we didn't have money to get more.: Never true Has lack of transportation kept you from medical appointments or from doing things needed for daily living?: no Has anyone in your life made you feel unsafe or unsupported?: no How hard is it for you to pay for the very basics like food, housing, medical care, and heating? Would you say it is:: Somewhat hard Do you want help finding or keeping work or a job?: I do not need or want help If for any reason you need help with day-to-day activities such as bathing, preparing meals, shopping, managing finances, etc., do you get the help you need?: I get all the help I need How often do you feel lonely or isolated from those around you?: Never Do you speak a language other than Slovenian at home?: No Does the patient want assistance with any of the above?: No Health Related Social Needs Health related social needs: problems related to housing/economic circumstances (Z59.89) Health related social needs details: Pt reports that finances are tight at times, but she is able to afford the things she needs.
--- NOTE | 2025-07-21 11:18 | PT.INTREAT ---
PT Notes Visit Reasons: Cellulitis Inpatient Physical Therapy Treatment Note [facility] Date: 07/21/2025 PRECAUTIONS:standard, SUBJECTIVE: Patient reports she now has discomfort with dependent position of right lower extremity and has relief when leg is elevated. She states the doctor told her this is a good sign that circulation is getting to the foot she is very pleased with that despite the increased discomfort she feels during upright tasks OBJECTIVE: Presented similar inclined in bed with right lower extremity elevated on her computer? PAIN: 5/10 with dependent position of right lower extremity VITALS: ?Monitored by nursing Therapeutic Activities (99963c[]): Direct one-on-one instruction in dynamic activities to improve functional performance. ? BED MOBILITY/TRANSFERS? Rolling L/R: Independent Supine-sit: Independent? Sit-supine: Independent? Sit-stand: Standby assist with cues for hand placement nonweightbearing on right lower extremity? Stand-sit: Standby assist with cues for hand placement? ? nonweightbearing right lower extremity? Bed-Chair: Step turn with FWW nonweightbearing right lower extremity ? Chair-bed: Step turn with FWW nonweightbearing right lower extremity Provided skilled cues and instruction on performance and technique throughout. - Facilitated safe and correct performance of level surface ambulation covering a distance of 55 feet using use front wheeled walker with standby assist and wheelchair follow for safety. Did report increased pain right lower extremity. Denied headache, chest pain, and lightheadedness throughout activity. Minimal verbal cueing provided for AD management, directional changes, and posture. ASSESSMENT:?Patient demonstrated ability to participate in ambulation this session agreeable and motivated. Patient able to tolerate distance of 55 feet with 1 turn standby assist no loss of balance. Patient limited by increasing pain the longer she states standing. PLAN: Continue with plan of care for functional mobility progressed to stairs as able with rail and device also progress with weightbearing to patient's tolerance right lower extremity TREATMENT CODE/TIME: 64698 x [id number] DISCHARGE RECOMMENDATION: Home with home PT
--- NOTE | 2025-07-21 15:06 | PGE_ITS ---
Date of Service Date of service: 07/21/25 Time of Service: 15:06 Assessment and Plan Assessment and plan (1) Ulcer of right leg: Status: Acute Assessment and plan: She has multiple non-healing ulceratoins. Failed outpatient cephalexin and bactrim. Painful ulceration, not a/w lack of sensation, not c/w diabetic ulcers. Distributing c/w venous ulcers but no surrounding venous changes, and too well demarcated. Painful nature and appearence are more c/w arterial ulcers, but she has warm feet, hair on toes, good cap refill.. CTA shows some clear PAD in area of ulcers Cannot tolerate ABIs but TBI 0.18 on right, pressure 31 c/w severe PAD. Must consider other things like vasculitis, skin cancer, leichmeniasis (though typically not painful and no travel), and especially pyoderma gangrenosum. Biopsy done by Dr. Westfall 07/20 Case discussed with vascular 07/21, they think she may need reperfusion for these to heal, accepted by Dr. Guille Segura pending bed availability, likely over weekend. Continue IV antibiotic, vanco and unasyn with blood cultures pending. Surrounding cellulitis is improving. Added gabapentin to manage pain with opioids, NSAIDs, APAP. Offload that foot Wound care as tolerated (2) Peripheral arterial disease: Status: Acute Assessment and plan: As above. Started on ASA and atorvastatin. Lipids with LDL 104. Likely to acheive goal of 50 on high intensity therapy. (3) Hyponatremia: Status: Acute Assessment and plan: Improved with rehydration, follow. Patient asymptomatic (4) Diabetes mellitus type 2 in obese: Status: Acute Assessment and plan: Controlled with diet and exercise, prediabetic per patient, but A1c are clearly in DM range going back to 2020, not well controlled at 8.5% That said, her LE sensation is intact. She should be on therapy, metromin to start ideally in combination with GLP-1, but defering this for now with CTA done and angiogram pending. ISS for now, add conservative glargine, diabetic education. (5) Tobacco use disorder: Assessment and plan: Did recommend cessation. Patient did not want any nicotine replacement therapy for now, she understands continued smoking will decrease her chance of having appropriate wound healing. Patient on DVT prophylaxis with Lovenox Subjective Subjective Patient reports: no new complaints, tolerating a regular diet and voiding w/o difficulty; denies nausea, vomiting, shortness of breath or fever Interval history since last seen: Pain in middle of the foot is a little better, but the ulcers are throbbing. The ulcers are still very tender. Exam Narrative Exam Narrative: GEN: Alert and oriented, NAD Cardiovascular-regular rate and rhythm no murmur gallop Lungs-clear to auscultation bilaterally, normal effort Abdomen-soft nontender nondistended Extremities- Less erythema around the ulcers, see Dr. Westfall note for photo of 3 ulcers, no change other than now covered. Objective Last Vital Signs Temp 36.7 C 07/21/25 06:56 Pulse 75 07/21/25 06:56 Resp 17 07/21/25 06:56 BP 165/70 H 07/21/25 06:56 Pulse Ox 97 07/21/25 06:56 Laboratory Results - last 24 hr 07/21/25 06:35 Hemoglobin A1c 8.5 H Triglycerides 181 H Total Cholesterol 169 LDL Cholesterol, Calc 104 H HDL Cholesterol 29 L PAWSS Have you Been Recently Intoxicated or Drunk Within the Last 30 days?: No Have you Ever Experienced Previous Episodes of Alcohol Withdrawal?: No Have you ever Experienced Withdrawal Seizures?: No Have you ever Experienced Delirium Tremens(DT)s?: No Have you ever undergone Alcohol Rehabilitation Treatment (i.e, inpt ot outpatient treatment programs)?: No Have you ever Experienced Blackouts?: No Have you ever Combined Alcohol with other Downers within the last 90 days?: No Have you ever Combined Alcohol with any other Substance of Abuse during the last 90 days?: No Positive Blood Alcohol level on Presentation? [PCS.BAL]: No Evidence of Increased Autonomic Activity (i.e. HR>120, tremor, sweating, agitation, nausea)?: No Result: 0 Time Spent with Patient Time Spent with Patient: 35-49 minutes Time was spent: preparing to see the patient(eg.review tests), obtaining and/or reviewing separately otained hiistory, ordering medications,tests, procedures, referring, communicating with other health career placement specialist, indepentently interpreting results, counseling the patient and care coordination
--- NOTE | 2025-07-21 15:58 | CHAPLAIN ---
Tita was sitting up in bed working on a laptop when I visited. She said she works independently and is trying make sure her schedule is clear why she's here. Pain has been an issue, and her nurse, YESSICA Liu, was working with her to figure out how to get her pain better controlled. I explained my role and offered support.
[2025-07-21 19:45] VITALS: BP 170/67; PULSE 85; RESP 22; TEMP 36.9; O2SAT 96
[2025-07-21] MEDS: Atorvastatin 40 MG TAB PO (19:46)
[2025-07-22] MEDS: AMPICILLIN/SULBACTAM 3 GM in Normal Saline 100 ML IVPB ×5 (00:20→23:57)
[2025-07-22] MEDS: VANCOMYCIN/WATER (PEG) 1.5 GM/300 ML BAG IVPB ×2 (03:50→15:48)
[2025-07-22] MEDS: oxyCODONE 5 MG TAB 10 MG PO ×3 (05:41→20:09)
[2025-07-22 07:16] LABS: Anion Gap 8.8 mmol/L (3-11); BUN 8 mg/dL (7-18); CO2 28.2 mmol/L (21.0-32.0); Calcium 9.4 mg/dL (8.5-10.1); Chloride 101 mmol/L (98-107); Estimated GFR 81.21 (mL/min/1.73m2); Glucose 158 mg/dL (74-106); Potassium 4.1 mmol/L (3.5-5.1); Sodium 138 mmol/L (136-145)
[2025-07-22 08:17] VITALS: BP 159/69; PULSE 75; RESP 17; TEMP 36.5; O2SAT 96
--- NOTE | 2025-07-22 09:04 | W.PC.ACHO ---
Registration Status: ADM IN Primary Language: Preferred Language: Yi ED Information & Data Chief Complaint RashLesion 07/18/25 23:41 Triage Note PT reports increasing 07/18/25 23:25 swelling in the R foot for the past 4 days. PT reports that she is treating 2 open wounds in R ankle. PT changed bandage today and noticed extreme increase in pain. Medical / Surgical History (Last Reviewed 07/20/25 @ 12:02 by Corazon Westfall DPM) Seasonal affective disorder Depression Hyperlipidemia Tobacco use disorder Pap smear vag w ASC-US Hemorrhoids Bilateral calf pain Situational anxiety Low back pain Back pain with radiculopathy (Last Reviewed 07/20/25 @ 12:02 by Corazon Westfall DPM) History of back surgery Most Recent Vital Signs Temperature 36.5 C 07/22/25 08:17 Temperature Source Temporal Artery Scan 07/22/25 08:17 Pulse 75 07/22/25 08:17 Pulse 84 07/20/25 10:01 Respiratory Rate 17 07/22/25 08:17 Respiratory Effort Normal 07/19/25 03:00 Respiratory Depth Normal 07/19/25 03:00 Respiratory Pattern Normal 07/19/25 03:00 Blood Pressure 159/69 H 07/22/25 08:17 Blood Pressure Mean 99 07/22/25 08:17 Blood Pressure Position Supine 07/19/25 03:00 Pulse Oximetry 96 07/22/25 08:17 Oxygen Delivery Method Room Air 07/22/25 08:17 Oxygen Flow Rate 0 07/22/25 08:17 Pain Level 2 07/22/25 08:17 Comment pain 10/10 07/20/25 04:09 Allergies No Known Allergies Allergy (Unverified 07/18/25 23:29) Active Medications Generic Name Dose Route Start Last Admin Trade Name Freq PRN Reason Stop Dose Admin Acetaminophen 0 mg 07/19/25 02:04 07/21/25 11:24 Acetaminophen 325 Mg Tab PO 650 mg Q4H PRN PRN Administration Acidophilus/Pectin 1 cap 07/19/25 08:30 07/21/25 08:27 Lactobacillus Acidophilus Cap PO 1 cap DAILY KEERTHI Administration Amlodipine Besylate 10 mg 07/19/25 08:30 07/21/25 08:26 Amlodipine 10 Mg Tab PO 10 mg DAILY KEERTHI Administration Aspirin 81 mg 07/20/25 08:30 07/21/25 08:27 Aspirin 81 Mg Chew PO 81 mg DAILY [facility] Administration Atorvastatin Calcium 40 mg 07/20/25 20:00 07/21/25 19:46 Atorvastatin 40 Mg Tab PO 40 mg QPM [facility] Administration Cyclobenzaprine HCl 10 mg 07/20/25 04:44 07/21/25 08:27 Cyclobenzaprine 10 Mg Tab PO 10 mg TID PRN PRN Administration Docusate Sodium 100 mg 07/19/25 02:04 07/20/25 17:47 Docusate Sodium 100 Mg Cap PO 100 mg TID PRN PRN Administration Enoxaparin Sodium 40 mg 07/19/25 08:30 07/21/25 08:26 Enoxaparin 40 Mg/0.4 Ml Syr SC 40 mg DAILY [facility] Administration Gabapentin 300 mg 07/19/25 14:00 07/21/25 19:48 Gabapentin 300 Mg Cap PO 300 mg TID [facility] Administration Ampicillin Sodium/Sulbactam 100 mls @ 200 mls/hr 07/19/25 06:00 07/22/25 07:23 Sodium 3 gm/ Sodium Chloride IVPB Infused Q6H [facility] Infusion Vancomycin/PEG/NADA/Lysine/Water 1.5 gm in 300 mls @ 200 mls/hr 07/20/25 16:00 07/22/25 03:50 Vancocin Injection IVPB 200 mls/hr Q12H [facility] Administration Insulin Aspart 0 units 07/21/25 08:00 07/21/25 18:13 Insulin Aspart 300 Units/3 Ml Pen SC Not Given 0800,1200,1700 [facility] Protocol Insulin Glargine 10 units 07/21/25 20:00 07/21/25 19:56 Insulin Glargine 300 Units/3 Ml Pen SC Not Given HS [facility] Losartan Potassium 100 mg 07/19/25 08:30 07/21/25 08:26 Losartan 50 Mg Tab PO 100 mg DAILY [facility] Administration Morphine Sulfate 2 mg 07/19/25 03:20 07/21/25 20:51 Morphine 2 Mg/Ml Syr IVP 2 mg Q6H PRN PRN Administration Multivitamins 1 tab 07/19/25 08:30 07/21/25 08:27 Multivitamin Tab PO 1 tab DAILY [facility] Administration Nicotine 7 mg 07/19/25 22:00 07/21/25 08:33 Nicotine 7 Mg/24 Hr Patch TD 7 mg DAILY KEERTHI Administration Oxycodone HCl 10 mg 07/19/25 11:31 07/22/25 05:41 Oxycodone 5 Mg Tab PO 10 mg Q4H PRN PRN Administration Polyethylene Glycol 17 gm 07/19/25 02:04 07/20/25 17:47 Polyethylene Glycol 3350 17 Gm Packet PO 17 gm DAILY PRN PRN Administration Constipation Potassium Chloride 40 meq 07/19/25 22:00 07/21/25 19:47 Potassium Chloride 20 Meq Tabcr PO 40 meq BID KEERTHI Administration Sodium Chloride 0 ml 07/19/25 00:05 07/21/25 20:52 Normal Saline Flush 10 Ml Syr IVP 10 ml PRN PRN Administration Sodium Chloride 0 ml 07/19/25 08:30 07/21/25 19:47 Normal Saline Flush 10 Ml Syr IVP 10 ml BID KEERTHI Administration IV IV Catheter Type [Left Hand] Peripheral IV IV Catheter Type [Right Saline Lock Antecubital] IV Catheter Gauge [Left Hand] 20 IV Catheter Gauge [Right 20 Antecubital] Diagnostics 07/22/25 Range/Units 06:35 Sodium 138 (136-145) mmol/L Potassium 4.1 (3.5-5.1) mmol/L Chloride 101 (98-107) mmol/L Carbon Dioxide 28.2 (21.0-32.0) mmol/L Anion Gap 8.8 (3-11) mmol/L BUN 8 (7-18) mg/dL Creatinine 0.8 (0.55-1.02) mg/dL Est GFR (CKD-EPI 2020) 81.21 (mL/min/1.73m2) Glucose 158 H (74-106) mg/dL Calcium 9.4 (8.5-10.1) mg/dL 07/20/25 16:55 Wound Culture - Preliminary Leg - Right Lower Gram positive janae, mixed Gram Stain - Final [id number] Documentation Fingerstick Glucose Start: 07/20/25 18:18 Freq: .AC Status: Active Protocol: Activity Type Activity Date Activity User E-sign Co-sign Detail Recorded Client Recorded Date Recorded By Document 07/22/25 07:56 WILLAG DAEMON(3) NVT-BG05 07/22/25 07:56 BKG DAEMON(4) Intake and Output - 24 Hour Total 07/18/25 23:17 thru 07/22/25 07:23 Intake Total 7350 Output Total 9310 Balance -1960 Weight 90.265 kg Intake: IV 3410 Oral 3940 Output: Urine 9310 Other: Urine Color Yellow Urine Appearance Clear Urine Odor Strong Comment Pt voids ind. in commode. Stool Size Large Stool Characteristics Formed Falls Risk Assessment History of Falls No History 07/19/25 03:00 Contributing Factors Impairments,Medications 07/19/25 03:00 Ambulatory Aids Independent 07/19/25 03:00 Tubes/Lines With any additional score 07/19/25 03:00 Gait Evaluation W/any additional score 07/19/25 03:00 Cognition No cognitive impairment 07/19/25 03:00 Fall Total Score 46 07/19/25 03:00 Level of Risk Moderate Risk 07/19/25 03:00 Problems (Last Reviewed 07/20/25 @ 12:02 by Corazon Westfall DPM) Peripheral arterial disease (Acute) Edema (Acute) Ulcer of right lower extremity with fat layer exposed (Acute) Ischemic ulcer of right lower leg due to atherosclerosis (Acute) Ulcer of right leg (Acute) Hyponatremia (Acute) Diabetic ulcer of calf (Acute) Diabetic ankle ulcer (Acute) Diabetes mellitus type 2 in obese (Acute) v v v v v v v v v Sending and/or Receiving Nurses: Please use comment section below to note any information pertinent to the patient hand-off not included above. Information / Comments: Pt was transfered from ICU to [facility] via wheel chair and settled into dustin. Pt was oriented to room and call gupta was placed in reach. Pt aware to call for assistance when needing to ambulate. Report received from: YESSICA Trinidad
[2025-07-22] MEDS: Enoxaparin 40 MG/0.4 ML SYR SC (10:51)
[2025-07-22] MEDS: Normal Saline Flush 10 ML SYR IVP ×4 (10:51→20:12)
[2025-07-22] MEDS: Lactobacillus Acidophilus CAP 1 CAP PO (10:52)
[2025-07-22] MEDS: amLODIPine 10 MG TAB PO (10:52)
[2025-07-22] MEDS: Gabapentin 300 MG CAP PO ×3 (10:52→20:09)
[2025-07-22] MEDS: Nicotine 7 MG/24 HR PATCH TD (10:52)
[2025-07-22] MEDS: Multivitamin TAB 1 TAB PO (10:52)
[2025-07-22] MEDS: Potassium Chloride 20 MEQ TABCR 40 MEQ PO ×2 (10:52→20:08)
[2025-07-22] MEDS: Aspirin 81 MG CHEW PO (10:52)
[2025-07-22] MEDS: Losartan 50 MG TAB 100 MG PO (10:52)
[2025-07-22] MEDS: Cyclobenzaprine 10 MG TAB PO (11:02)
--- NOTE | 2025-07-22 11:20 | PT.INNT ---
Date of service: 07/22/25 Time of Service: 11:20 PT Notes Visit Reasons: Cellulitis Tita notes that she is awaiting transfer to [facility] [place]. Has been able to independently get around her hospital room with use of FWWROBINSON. Does not feel that she needs further PT services at this time. Is Independent with all her functional transfers and bed mobility.
[2025-07-22] MEDS: MORPHine 2 MG/ML SYR IVP (12:25)
[2025-07-22 13:46] LABS: Vancomycin, Random 17.0 ug/mL
--- NOTE | 2025-07-22 16:07 | PGE_ITS ---
Date of Service Date of service: 07/22/25 Time of Service: 16:07 Assessment and Plan Assessment and plan (1) Ulcer of right leg: Status: Acute Assessment and plan: -multiple non-healing ulceratoins having failed outpatient cephalexin and bactrim. -Painful nature and appearence are more c/w arterial ulcers, but she has warm feet, hair on toes, good cap refill.. -CTA shows some clear PAD in area of ulcers -Cannot tolerate ABIs but TBI 0.18 on right, pressure 31 c/w severe PAD. -Biopsy done by Dr. Westfall 07/20 -Case discussed with vascular 07/21, they think she may need reperfusion for these to heal, accepted by Dr. Guille Segura pending bed availability, likely over weekend. -Continue IV antibiotic, vanco and unasyn with blood cultures pending. -Surrounding cellulitis is improving. -Added gabapentin to manage pain with opioids, NSAIDs, APAP. -Offload that foot -wound care as tolerated (2) Peripheral arterial disease: Status: Acute Assessment and plan: -As above. -Started on ASA and atorvastatin. (3) Hyponatremia: Status: Acute Assessment and plan: -Improved with rehydration, follow. -Patient asymptomatic (4) Diabetes mellitus type 2 in obese: Status: Acute Assessment and plan: -Controlled with diet and exercise, prediabetic per patient, but A1c are clearly in DM range going back to 2020, not well controlled at 8.5% -That said, her LE sensation is intact. -She should be on therapy, metformin to start ideally in combination with GLP-1, but defering this for now with CTA done and angiogram pending. -ISS for now, add conservative glargine, diabetic education. (5) Tobacco use disorder: Assessment and plan: -Did recommend cessation. -Patient did not want any nicotine replacement therapy for now, she understands continued smoking will decrease her chance of having appropriate wound healing. Subjective Subjective Interval history since last seen: Patient states that she is doing well and understands if she is awaiting bed availability at [facility]. Exam Narrative Exam Narrative: Well-appearing female sitting up in bed in no acute distress, ANO x 4, heart regular rhythm, lungs good auscultation bilaterally, abdomen soft, nontender, nondistended, wounds on right lower extremity covered with newly placed bandages without surrounding erythema or drainage Objective Last Vital Signs Temp 97.7 F 07/22/25 08:17 Pulse 75 07/22/25 08:17 Resp 17 07/22/25 08:17 BP 159/69 H 07/22/25 08:17 Pulse Ox 96 07/22/25 08:17 Laboratory Results - last 24 hr 07/22/25 07/22/25 06:35 13:20 Sodium 138 Potassium 4.1 Chloride 101 Carbon Dioxide 28.2 Anion Gap 8.8 BUN 8 Creatinine 0.8 Est GFR (CKD-EPI 2020) 81.21 Glucose 158 H Calcium 9.4 Random Vancomycin 17.0 PAWSS Have you Been Recently Intoxicated or Drunk Within the Last 30 days?: No Have you Ever Experienced Previous Episodes of Alcohol Withdrawal?: No Have you ever Experienced Withdrawal Seizures?: No Have you ever Experienced Delirium Tremens(DT)s?: No Have you ever undergone Alcohol Rehabilitation Treatment (i.e, inpt ot outpatie nt treatment programs)?: No Have you ever Experienced Blackouts?: No Have you ever Combined Alcohol with other Downers within the last 90 days?: No Have you ever Combined Alcohol with any other Substance of Abuse during the last 90 days?: No Positive Blood Alcohol level on Presentation? [PCS.BAL]: No Evidence of Increased Autonomic Activity (i.e. HR>120, tremor, sweating, agitation, nausea)?: No Result: 0 Time Spent with Patient Time Spent with Patient: >50 minutes Time was spent: preparing to see the patient(eg.review tests), obtaining and/or reviewing separately otained hiistory, ordering medications,tests, procedures, referring, communicating with other health child care attendant school, indepentently interpreting results, counseling the patient and care coordination
[2025-07-22 20:02] VITALS: BP 156/78; PULSE 75; RESP 18; TEMP 36.5; O2SAT 96
[2025-07-22] MEDS: Atorvastatin 40 MG TAB PO (20:08)
[2025-07-22] MEDS: Insulin Glargine 300 UNITS/3 ML PEN 10 UNITS SC (20:09)
[2025-07-23] MEDS: VANCOMYCIN/WATER (PEG) 1.5 GM/300 ML BAG IVPB ×2 (03:31→15:51)
[2025-07-23] MEDS: MORPHine 2 MG/ML SYR IVP (03:31)
[2025-07-23] MEDS: AMPICILLIN/SULBACTAM 3 GM in Normal Saline 100 ML IVPB ×3 (05:13→18:01)
[2025-07-23 07:19] VITALS: BP 153/77; PULSE 80; RESP 16; TEMP 36.6; O2SAT 95
[2025-07-23] MEDS: Enoxaparin 40 MG/0.4 ML SYR SC (08:19)
[2025-07-23] MEDS: Normal Saline Flush 10 ML SYR IVP ×4 (08:19→18:45)
[2025-07-23] MEDS: Gabapentin 300 MG CAP PO ×2 (08:20→15:21)
[2025-07-23] MEDS: amLODIPine 10 MG TAB PO (08:20)
[2025-07-23] MEDS: Aspirin 81 MG CHEW PO (08:20)
[2025-07-23] MEDS: Losartan 50 MG TAB 100 MG PO (08:20)
[2025-07-23] MEDS: Potassium Chloride 20 MEQ TABCR 40 MEQ PO (08:20)
[2025-07-23] MEDS: Nicotine 7 MG/24 HR PATCH TD (08:20)
[2025-07-23] MEDS: Multivitamin TAB 1 TAB PO (08:20)
[2025-07-23] MEDS: Lactobacillus Acidophilus CAP 1 CAP PO (08:20)
[2025-07-23] MEDS: Cyclobenzaprine 10 MG TAB PO (08:20)
[2025-07-23] MEDS: oxyCODONE 5 MG TAB 10 MG PO ×2 (08:20→19:17)
[2025-07-23] MEDS: Acetaminophen 325 MG TAB PO (11:57)
--- NOTE | 2025-07-23 15:44 | NUR.NOTE ---
Nursing Note: Report called into YESSICA Campoverde at [facility] at this time
--- NOTE | 2025-07-23 16:30 | CMDISCH_ITS ---
Date of service: 07/23/25 Time of Service: 16:30 LACE Index Scoring Tool Questions: Length of Stay (in days): 4 - 6 Was the patient admitted via the E.D.?: Yes Comorbidities: Diabetes w/o Complication and Chronic Pulmonary Disease E.D. Visits: 2 Answers: Total Score: 12 Risk of Readmission: High Risk Care Management Discharge Plan Reason for Hospitalization: right leg ulcer Discharge Plan: Tita is being transferred to [facility] vascular surgery today for further assessment and treatment of her ulcers. She is very pleased to have secured a bed. She will transfer via EMS. SDOH Health Related Social Needs: Health related social needs house/econ circumstance Health related social needs details Pt reports that fi nances are tight at times, but she is able to afford the things she needs. Health related social needs details: Pt reports that finances are tight at times, but she is able to afford the things she needs.
--- NOTE | 2025-07-31 10:25 | W.PM.DS.N ---
Date of service: 07/23/25 Time of Service: 17:50 DS: Diagnosis Discharge Diagnosis (1) Ulcer of right leg: Status: Acute (2) Peripheral arterial disease: Status: Acute (3) Hyponatremia: Status: Acute (4) Diabetes mellitus type 2 in obese: Status: Acute (5) Tobacco use disorder: Discharge Plan Disposition Patient Disposition: Transfer-Acute Inpatient Care Specific Acute Inpt Facility: [facility] [place] Condition: Fair Discharge Details Reason For Visit: Cellulitis Admit Date/Time: 07/19/25 02:04 Admit Provider: Rian Storey Attending Provider: Rian Storey Primary Care Provider: Lesley Henriquez V Hospital Course Hospital Course: Patient initially presented for concerns with right lower extremity/foot and ankle wounds that were nonhealing and failed outpatient antibiotic regimen. She was started on IV antibiotics at, no poor circulation in that leg. [facility] [place] [place] vascular surgery was consulted on 07/21/2025 thought the patient would benefit from reperfusion in order to aid in wound healing and accepted the patient. She was accepted by Dr. Segura pending bed availability, and ultimately a bed was available on 07/23/2025. Ultimately determined the patient was stable for transfer to [facility] [place] [place] vascular surgery. Home Meds and New Rx's Prescriptions: No Action amlodipine 10 mg tablet 10 mg PO DAILY multivitamin capsule 1 cap PO DAILY hydrochlorothiazide 25 mg tablet 25 mg PO DAILY Bio-K plus 50 billion cell capsule,delayed release(DR/EC) 1 cap PO DAILY Qty: 30 0RF Morphine Ir, 4 Tabs/Btl [Msir, 4 Tabs/Btl] 15 mg PO DISPENSE Qty: 0 0RF potassium chloride 10 mEq capsule, extended release See Rx Instructions .ROUTE .COMPLEX Patient Comments: TAKE 1 CAPSULE BY MOUTH EVERY DAY Rx Instructions: 10 mEq orally every other day per patient report losartan 100 mg tablet 100 mg PO DAILY Patient Comments: TAKE 1 TABLET BY MOUTH EVERY DAY Discharge Instructions Activity:: Activity as Tolerated Equipment/Supplies:: No Equipment Needed Diet:: As Tolerated Discharge Orders Discharge Orders: Discharge Order (Routine); Ordered 07/23/25 Ordered By: Berry Vickers Discharge Data Discharge Date/Time-TO BE ENTERED AT DEPARTURE: 07/23/25 19:30 DS: Summary Time Spent with Patient providing and/or coordinating discharge services: Greater than 30 minutes Status at Discharge Functional status at discharge: independent ambulation Overall status at discharge: patient is back to baseline Mental Status: mental status grossly normal Speech and Movement: speech and movement normal Mood: congruent mood Affect: normal affect Quality:SDOH Health Related Social Needs: Health related social needs house/econ circumstance Health related social needs details Pt reports that finances are tight at times, but she is able to afford the things she needs. Health related social needs details: Pt reports that finances are tight at times, but she is able to afford the things she needs. Exam Narrative Exam Narrative: Well-appearing female sitting up in bed in no acute distress, ANO x 4, heart regular rhythm, lungs good auscultation bilaterally, abdomen soft, nontender, nondistended, wounds on right lower extremity covered with newly placed bandages without surrounding erythema or drainage Psych Mental Status: mental status grossly normal Speech and Movement: speech and movement normal Mood: congruent mood Affect: normal affect DS: Data Vitals/I&O Vitals and I&O: Vital Signs Temperature 97.9 F 07/23/25 07:19 Temperature Source Temporal Artery Scan 07/23/25 07:19 Pulse 80 07/23/25 07:19 Pulse 84 07/20/25 10:01 Respiratory Rate 16 07/23/25 07:19 Respiratory Effort Normal 07/19/25 03:00 Respiratory Depth Normal 07/19/25 03:00 Respiratory Pattern Normal 07/19/25 03:00 Blood Pressure 153/77 H 07/23/25 07:19 Blood Pressure Mean 102 07/23/25 07:19 Blood Pressure Position Supine 07/19/25 03:00 Pulse Oximetry 95 07/23/25 07:19 Oxygen Delivery Method Room Air 07/23/25 07:19 Oxygen Flow Rate 0 07/23/25 07:19 Pain Level 1 07/23/25 19:25 Comment pain 08/1107/20/25 04:09 [facility] All Active Problems (Updated 07/24/25 @ 00:03 by DANELLE LEE) Peripheral arterial disease (Acute) Edema (Acute) Ulcer of right lower extremity with fat layer exposed (Acute) Ischemic ulcer of right lower leg due to atherosclerosis (Acute) Ulcer of right leg (Acute) 3, ankle and calf Hyponatremia (Acute) Tachycardia, paroxysmal (Acute) Diabetic ulcer of calf (Acute) Diabetic ankle ulcer (Acute) Diabetes mellitus type 2 in obese (Acute) Hypokalemia (Acute) Discharge planning issues (Acute) DVT prophylaxis (Acute) COPD, mild (Chronic) Hypertension (Chronic) Cat bite (Acute) Cat bite of right hand (Acute) Cat bite of left hand with infection (Acute) Leg wound, right (Acute) Medical History Seasonal affective disorder Depression Hyperlipidemia Tobacco use disorder Pap smear vag w ASC-US Hemorrhoids Bilateral calf pain Situational anxiety Low back pain Back pain with radiculopathy Surgical History History of back surgery Family History Mother Stroke Diabetes Hypertension Father Stroke Hypertension Cancer prostate cancer Sister Cancer tongue/throat cancer (smoker) Social History Smoking/Tobacco Use Status: Current every day Tobacco Type: cigarettes Smoking packs per day: 0.5 Smoking cigarettes per day: 10.0 Years smoked: 35 Smoking pack-years: 17.50 Tobacco: How many years used: 35 Counseling given: provider counseling and support medications Smoking risk assessment performed?: Yes Alcohol Intake: current Alcohol Intake frequency: 0-2 drinks per day Drug use: Never Substance use type: does not use Housing: house Current gender identity: female Do you feel safe at home: Yes Do you feel safe in your relationship?: Yes Time Spent with Patient Time Spent with Patient: <45 minutes Time was spent: preparing to see the patient(eg.review tests), obtaining and/or reviewing separately otained hiistory, ordering medications,tests, procedures, referring, communicating with other health resident care coordinator, indepentently interpreting results, counseling the patient and care coordination
== END 2025-07-23 19:30 | disposition short-term general hospital (02) | DRG 300 ==
LOC: ER 07-19 02:41 → ICU 07-19 05:32 → MS 07-20 18:17
PROVIDERS: Family Medicine; Admitting Provider Hospitalist; Emergency Provider Emergency Medicine; PCP Family Medicine; Responsible Provider Family Medicine; Visit Provider Hospitalist
DX: I70.232 Atherosclerosis of native arteries of right leg with ulceration of calf (principal); E87.1 Hypo-osmolality and hyponatremia; L03.115 Cellulitis of right lower limb; L97.312 Non-pressure chronic ulcer of right ankle with fat layer exposed; L97.212 Non-pressure chronic ulcer of right calf with fat layer exposed; I70.233 Atherosclerosis of native arteries of right leg with ulceration of ankle; E66.9 Obesity, unspecified; F17.210 Nicotine dependence, cigarettes, uncomplicated; F32.A Depression, unspecified; E78.5 Hyperlipidemia, unspecified; K64.8 Other hemorrhoids; M54.50 Low back pain, unspecified; I10 Essential (primary) hypertension; J44.9 Chronic obstructive pulmonary disease, unspecified; Z68.34 Body mass index [BMI] 34.0-34.9, adult; E87.6 Hypokalemia; Z59.9 Problem related to housing and economic circumstances, unspecified
CPT/HCPCS: 11104; 00123; 36415; 75635; 80048; 80053; 80061; 85652; 87077; 96365; 96366; 96367; 96375; 96376; 97161; 97530; 99285; J1650; 73630; 73720; 80202; 83036; 83605; 85025; 86140; 87070; 87075; 87186; 87205; 88305; 88312; 88313; 99222; 99232; 99233; 99238; J0295; J1815; J2060; J2270; J2405; J3373; J3480; J3490

== ENCOUNTER 2025-09-15 13:39 | Outpatient (REF) | payer BC, SELFPAY | END 2025-09-15 13:40 | disposition home or self-care (01) | LOC: NCHCN 13:39 | PROVIDERS: PCP Family Medicine; Visit Provider Family Medicine | DX: I70.221 Atherosclerosis of native arteries of extremities with rest pain, right leg (principal) | CPT/HCPCS: 87070; 87205 ==